=== PATIENT | female | born 1975 | race Caucasian/White ===

== ENCOUNTER 2016-09-05 21:58 | Emergency (ER) | payer OTHER ==
[~2016-09-05] VITALS: Ht 157.5 cm; Wt 96.1 kg
[~2016-09-05 21:58] MED LIST: INSDGI SC; NVLGI/PEN SQ; ONDA4TAB10 SL; OXYC1TAB3 PO
[2016-09-05 22:03] VITALS: TEMP 37.1; Ht 157.5 cm; Wt 96.1 kg
[2016-09-05] MEDS ORDERED: SODIUM CHLORIDE 0.9% 1000ML 1,000 ML IV STA ×2 (23:41)
[2016-09-05] MEDS ORDERED: ONDANSETRON INJ 2 MG/ML 2 ML VIAL IV STA (23:41)
[2016-09-05] MEDS ORDERED: DICYCLOMINE HCL 10 MG/ML 2 ML AMP IM ONE (23:45)
[2016-09-06 00:06] LABS: BASO % 0.1 %; BASO ABS # 0.01 K/uL (0-0.2); COMPLETE YES; EOS % 2.7 %; HEMATOCRIT 40.7 % (37-47); IG% 0.5 %; LYMPH ABS # 2.83 K/uL (1.2-3.4); MEAN CELL VOLUME 77.8 fL (80-100); MEAN CORPUSCULAR HEMOGLOBIN 28.1 pg (25-34); MEAN CORPUSCULAR HGB CONC 36.1 g/dl (32-36); MEAN PLATELET VOLUME 8.1 fL (7.4-10.4); NEUT % 62.7 %; PLATELET COUNT 183 K/uL (130-400); RED BLOOD COUNT 5.23 M/uL (4.2-5.4); WHITE BLOOD COUNT 10.11 K/uL (4.8-10.8)
[2016-09-06] MEDS ORDERED: GABA-113 PO (00:18)
[2016-09-06] MEDS ORDERED: LISI-729 PO (00:18)
[2016-09-06 00:41] LABS: BUN/CREATININE RATIO 18.4 (10-20); C-REACTIVE PROTEIN 1.73 mg/dl (0-0.29); CALCIUM 8.9 mg/dl (8.5-10.1); CREATININE 0.74 mg/dl (0.60-1.20); MAGNESIUM 1.8 mg/dl (1.8-2.4)
[2016-09-06 00:49] LABS: URINE APPEARANCE CLEAR (CLEAR); URINE BILIRUBIN NEG (NEG); URINE COLOR YELLOW; URINE NITRITE NEG (NEG); URINE SPECIFIC GRAVITY 1.042 (1.000-1.030); UROBILINOGEN NEG (NEG); ZZUR CULT IF INDIC CLEAN CATCH NO
[2016-09-06 00:53] LABS: MANUAL MICROSCOPIC REQUIRED? NO; REVIEW REQ? NO
[2016-09-06] MEDS ORDERED: MoRPHine SULFATE 4 MG/ML 1 ML CARP\\VIAL IV STA (01:09)
[2016-09-06] MEDS ORDERED: OPTIRAY 320 IV PRN (02:00)
[2016-09-06 03:06] VITALS: BP 120/84; PULSE 90; O2SAT 97
[2016-09-06] MEDS ORDERED: ONDANSETRON HOME PACK 4MG OD TAB PO ONE (03:15)
[2016-09-06] MEDS ORDERED: OXYCODONE IR HOME PACK PO ONE (03:15)
--- NOTE | 2016-09-06 05:42 | EMERGENCY ROOM VISIT NOTE ---
History First contact with patient: 23:38 Chief Complaint: ABDOMINAL PAIN Stated Complaint: DIARRHEA,STOMACH PAIN,BAD HEADACHE,NAUSEA,FEELDEHY Nursing Triage Summary: pt c/o abd pain with n/d and her bsg won't come down, pmhx of diabetes type 1 and ulcerative colitis bsg at home 456 around 1830 History of Present Illness The patient is a 40 year old female who presents to the Emergency Room with complaints of nausea and diarrhea for the past day with left lower quadrant abdominal cramping, 7 out of 10. Nothing makes it better or worse. She follows with Dr. gonsalez. No recent colonoscopy. She has a known nodule in the duodenum. Patient denies chest pain, dyspnea, fever, chills, vomiting, urinary symptoms, recent antibiotics, back pain, well water. She states this does not feel like her C. difficile. Review of Systems See HPI for pertinent positives & negatives. A total of 10 systems reviewed and were otherwise negative. 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 (5) Ulcerative colitis Family History Cancer Diabetes mellitus Gallbladder disease Heart disease Hypertension Social History Smoking Status: Current Every Day Smoker Alcohol Use: occasionally Drug Use: none Marital Status: Housing Status: lives with family Occupation Status: other Current/Historical Medications Scheduled Dicyclomine Hcl (Bentyl), 10 MG PO QID Escitalopram Oxalate (Lexapro), 20 MG PO HS Gabapentin (Neurontin), 300 MG PO HS Insulin Aspart (Novolog Flexpen), SQ AC Insulin Glargine (Lantus), 50 UNITS SC BID Lamotrigine (Lamictal), 300 MG PO HS Lisinopril (Zestril), 5 MG PO DAILY Mesalamine (Asacol Hd), 2,400 MG PO TID Oxygen (Oxygen), 2 LITERS NA HS Scheduled PRN Lorazepam (Ativan), 1 MG PO BID PRN for Anxiety/Agitation Zolpidem Tartrate (Ambien), 10 MG PO HS PRN for Sleep Allergies Coded Allergies: No Known Allergies (Unverified , 06/13/16) Physical Exam Vital Signs Date Time Temp Pulse Resp B/P Pulse Ox O2 Delivery O2 Flow Rate FiO2 09/06/16 03:06 90 20 120/84 97 Room Air 09/06/16 01:17 96 18 116/83 96 Room Air 09/06/16 00:38 94 16 122/76 98 Room Air 09/05/16 22:03 37.1 114 18 135/86 96 Room Air Physical Exam VITALS: Vitals are noted on the nurse's note and reviewed by myself. Vital signs stable. GENERAL: Pleasant female, in no acute distress, nondiaphoretic, well-developed well-nourished. SKIN: The skin was without rashes, erythema, edema, or bruising. There is no tenting of the skin. Capillary reflex less than 2 seconds. HEAD: Normocephalic atraumatic. EARS: External auditory canals clear, tympanic membranes pearly zamarripa without erythema or effusion bilaterally. EYES: Pupils equal round and reactive to light and accommodation. Conjunctivae without injection, sclerae without icterus. Extraocular movements intact. NOSE: Patent, turbinates without inflammation or discharge. MOUTH: Mucous membranes moist. Pharynx without erythema or exudate. Uvula midline. Airway patent. Tongue does not deviate. NECK: Supple without nuchal rigidity. No lymphadenopathy. No thyromegaly. Cervical spine is nontender. No JVD. HEART: Regular rate and rhythm without murmurs gallops or rubs. LUNGS: Clear to auscultation bilaterally without wheezes, rales or rhonchi. No dullness to percussion. No retractions or accessory muscle use. ABDOMEN: Positive bowel sounds x 4. Normal tympanic percussion. Soft, tender to palpation left lower quadrant, no CVA tenderness, without masses or organomegaly. Villanueva sign negative. No guarding or rebound tenderness. MUSCULOSKELETAL: No muscle atrophy, erythema, or edema noted. NEURO: Patient was alert and oriented to person place and time. Normal sensation to light and sharp touch. No focal neurological deficits. Medical Decision & Procedures Laboratory Results 09/05/16 23:40 Red Blood Count 5.23, Mean Corpuscular Volume 77.8, Mean Corpuscular Hemoglobin 28.1, Mean Corpuscular Hemoglobin Concent 36.1, Mean Platelet Volume 8.1, Neutrophils (%) (Auto) 62.7, Lymphocytes (%) (Auto) 28.0, Monocytes (%) (Auto) 6.0, Eosinophils (%) (Auto) 2.7, Basophils (%) (Auto) 0.1, Neutrophils # (Auto) 6.34, Lymphocytes # (Auto) 2.83, Monocytes # (Auto) 0.61, Eosinophils # (Auto) 0.27, Basophils # (Auto) 0.01 09/05/16 23:40 Test 09/05/16 23:40 09/06/16 00:26 White Blood Count 10.11 K/uL (4.8-10.8) Red Blood Count 5.23 M/uL (4.2-5.4) Hemoglobin 14.7 g/dL (12.0-16.0) Hematocrit 40.7 % (37-47) Mean Corpuscular Volume 77.8 fL (80-100) Mean Corpuscular Hemoglobin 28.1 pg (25-34) Mean Corpuscular Hemoglobin Concent 36.1 g/dl (32-36) Platelet Count 183 K/uL (130-400) Mean Platelet Volume 8.1 fL (7.4-10.4) Neutrophils (%) (Auto) 62.7 % Lymphocytes (%) (Auto) 28.0 % Monocytes (%) (Auto) 6.0 % Eosinophils (%) (Auto) 2.7 % Basophils (%) (Auto) 0.1 % Neutrophils # (Auto) 6.34 K/uL (1.4-6.5) Lymphocytes # (Auto) 2.83 K/uL (1.2-3.4) Monocytes # (Auto) 0.61 K/uL (0.11-0.59) Eosinophils # (Auto) 0.27 K/uL (0-0.5) Basophils # (Auto) 0.01 K/uL (0-0.2) RDW Standard Deviation 38.4 fL (36.4-46.3) RDW Coefficient of Variation 13.6 % (11.5-14.5) Immature Granulocyte % (Auto) 0.5 % Immature Granulocyte # (Auto) 0.05 K/uL (0.00-0.02) Erythrocyte Sedimentation Rate 23 mm/hr (0-21) Urine Color YELLOW Urine Appearance CLEAR (CLEAR) Urine pH 5.0 (4.5-7.5) Urine Specific [place] 1.042 (1.000-1.030) Urine Protein NEG (NEG) Urine Glucose (UA) 3+ (NEG) Urine Ketones NEG (NEG) Urine Occult Blood NEG (NEG) Urine Nitrite NEG (NEG) Urine Bilirubin NEG (NEG) Urine Urobilinogen NEG (NEG) Urine Leukocyte Esterase NEG (NEG) Anion Gap 11.0 mmol/L (3-11) Est Creatinine Clear Calc Drug Dose 108.2 ml/min Estimated GFR () 116.6 Estimated GFR (Non- 100.6 BUN/Creatinine Ratio 18.4 (10-20) Calcium Level 8.9 mg/dl (8.5-10.1) Magnesium Level 1.8 mg/dl (1.8-2.4) Total Bilirubin 0.7 mg/dl (0.2-1) Direct Bilirubin 0.2 mg/dl (0-0.2) Aspartate Amino Transf (AST/SGOT) 27 U/L (15-37) Alanine Aminotransferase (ALT/SGPT) 71 U/L (12-78) Alkaline Phosphatase 171 U/L (45-117) C-Reactive Protein 1.73 mg/dl (0-0.29) Total Protein 8.1 gm/dl (6.4-8.2) Albumin 3.8 gm/dl (3.4-5.0) Lipase 167 U/L (73-393) Bedside Lactic Acid Venous 1.83 mmol/L (0.90-1.70) Medications Administered Medications (Trade) Dose Ordered Sig/Brenda Route Start Time Stop Time Status Last Admin Dose Admin Sodium Chloride 1,000 ml @ 999 mls/hr Q1H1M STAT IV 09/05/16 23:41 09/06/16 00:41 DC 09/06/16 00:11 999 MLS/HR Sodium Chloride (Nss 1000ml) 1,000 ml @ 125 mls/hr Q8H STAT IV 09/05/16 23:41 09/06/16 03:44 DC 09/06/16 01:01 125 MLS/HR Ondansetron HCl (Zofran Inj) 4 mg NOW STAT IV 09/05/16 23:41 09/05/16 23:43 DC 09/06/16 00:11 4 MG Dicyclomine HCl (Bentyl Inj) 20 mg NOW ONCE IM 09/05/16 23:45 09/05/16 23:46 DC 09/06/16 00:11 20 MG Morphine Sulfate (MoRPHine SULFATE INJ) 4 mg NOW STAT IV 09/06/16 01:09 09/06/16 01:10 DC 09/06/16 01:14 4 MG ED Course Prior records/ancillary studies reviewed. Triage Nursing notes reviewed. The patient's history was concerning for abdominal pain. Differential diagnosis: Etiologies such as ulcerative colitis exacerbation, appendicitis, diverticulitis , PUD, biliary pathology, UTI, pancreatitis, obstruction, mesenteric ischemia, aortic pathology, infections, inflammatory bowel disease, renal colic, as well as others were entertained. Physical examination findings: As above. ER treatment provided: IV fluids, Bentyl, morphine, Zofran On reassessment the patient felt better. Diagnostics interpreted by me: The labs revealed worrisome leukocytosis, elevated sed CRP, hyperglycemia without DKA negative urine Imaging studies: CT ABDOMEN & PELVIS: Compared to CT abdomen and pelvis 01/27/2016 1.1 centimeter nodule within the proximal duodenum, series 2 image 49. Followup to exclude malignancy would be useful. Postoperative changes of subtotal colectomy, overall similar to prior. No bowel obstruction. Regions of small bowel wall thickening may be due to incomplete distention or enteritis. Cholecystectomy. No CT evidence of acute pancreatitis. Hepatosplenomegaly. No urinary obstruction. No free fluid. No free air. Radiologist: Kimberley Gonzales M.D. Exam and history seem consistent with enteritis. Patient states she is a known nodule in her duodenum. She is advised follow-up Dr. Gonsalez for this. She denies rest, stay well-hydrated and to follow-up family care in a few days or here in the ER sooner for abdominal pain, fevers, vomiting, worsening signs or symptoms or as needed. Patient felt much better and requested to leave. She is well-appearing. She is advised to monitor her blood sugars better. By the evaluation outlined above emergent etiologies such as appendicitis, diverticulitis, PUD, biliary pathology, UTI, pancreatitis, obstruction, mesenteric ischemia, aortic pathology, renal colic, as well as others were deemed relatively unlikely. The pt informed about the findings as listed above. All questions were answered and pleased with the treatment. Return instructions were outlined and the patient was discharged in stable condition. Referral: The patient was referred back to their primary care physician and GI for follow- up in 2 to 3 days for a recheck of the current condition. Case reviewed with my attending Medical Decision As above Impression Primary Impression: Enteritis Departure Information Dispostion Home / Self-Care Condition GOOD Forms Call Back Authorization, HOME CARE DOCUMENTATION FORM, IMPORTANT VISIT INFORMATION Patient Instructions Abdominal Pain - [facility], My [facility] Additional Instructions DO NOT drive, drink alcohol, operate machinery, or perform dangerous activities today. You were given medications in the ER that can affect your ability to safely function or operate a vehicle. Ibuprofen(Motrin, Advil) may be used for fever or pain. Use 600mg every six hours as needed. Take with food. Avoid using more than 2400mg in a 24 hour period. Do not use 2400mg per day for more than three consecutive days without physician direction. Prolonged inappropriate use can lead to stomach upset or ulcers. (AND/OR) Acetaminophen(Tylenol) may be used for fever or pain. Use 1000mg every six hours as needed. Avoid using more than 4000mg in a 24 hour period. Zofran 4mg: Take one every six hours as needed for nausea. Avoid alcohol, operating machinery or dangerous equipment, working on ladders or roofs, DRIVING , or situations where being under the influence may be dangerous. Rest and drink plenty of fluids as tolerated. Slow sips of water or sports drinks are recommended instead of large amounts all at once. Continue current medications. Once your stomach is settled start with a clear liquid diet (jello, soup broth, etc.) and then advance as tolerated. You should avoid full, heavy meals for about 24 hrs from the time your symptoms resolved. Return to the ER immediately for worsening or persistent abdominal pain, vomiting, fevers, chest pains, difficulty breathing, black or bloody stools, worsening of your condition, or as needed. Follow up with your primary physician and crime scene analyst in 2-3 days for a recheck of your current condition.
--- NOTE | 2016-09-06 06:49 | DIAGNOSTIC IMAGING REPORT ---
ABDOMEN AND PELVIS CT WITH IV CONTRAST CT DOSE: 1083.53 mGy.cm HISTORY: Pain LLQ pain TECHNIQUE: Multiaxial CT images of the abdomen and pelvis were performed following the use of intravenous contrast. COMPARISON STUDY: 01/27/2016 FINDINGS: Prior cholecystectomy. Liver spleen and pancreas are unremarkable. Kidneys negative for hydronephrosis. Nonobstructive bowel pattern. Mild increase in fecal load of the sigmoid. Prior subtotal colectomy. Unchanged in the prior study. IMPRESSION: Chronic and postoperative change. No acute process. Electronically signed by: Matty Ribeiro M.D. 09/06/2016 6:48 AM Dictated Date/Time: 09/06/2016 6:47 AM
[2016-12-07] MEDS ORDERED: MESA800T6 PO (00:08)
== END 2016-09-06 03:11 | disposition home or self-care (01) ==
LOC: C.EDB 22:00
DX: K52.9 Noninfective gastroenteritis and colitis, unspecified (principal); F17.210 Nicotine dependence, cigarettes, uncomplicated; Z79.4 Long term (current) use of insulin; Z79.899 Other long term (current) drug therapy

== ENCOUNTER 2016-09-07 17:10 | Emergency (ER) | payer OTHER ==
[~2016-09-07] VITALS: Ht 157.5 cm; Wt 97.3 kg
[~2016-09-07 17:10] MED LIST changes: +GABA-113 PO; +LISI-729 PO; -ONDA4TAB10 SL; -OXYC1TAB3 PO
[2016-09-07 17:27] VITALS: TEMP 36.9; Ht 157.5 cm; Wt 97.3 kg
[2016-09-07] MEDS ORDERED: SODIUM CHLORIDE 0.9% 1000ML 1,000 ML IV STA (18:35)
[2016-09-07] MEDS ORDERED: ONDANSETRON 8 MG/54 ML D5W IV STA (18:41)
[2016-09-07 18:49] LABS: MANUAL MICROSCOPIC REQUIRED? NO; REVIEW REQ? NO; URINE APPEARANCE CLEAR (CLEAR); URINE BILIRUBIN NEG (NEG); URINE COLOR YELLOW; URINE NITRITE NEG (NEG); URINE PH 5.5 (4.5-7.5); UROBILINOGEN NEG (NEG)
[2016-09-07 18:51] LABS: BASO % 0.2 %; BASO ABS # 0.02 K/uL (0-0.2); COMPLETE YES; HEMATOCRIT 40.8 % (37-47); IG% 0.1 %; LYMPH % 27.7 %; LYMPH ABS # 2.85 K/uL (1.2-3.4); MEAN CELL VOLUME 78.6 fL (80-100); MEAN CORPUSCULAR HEMOGLOBIN 28.9 pg (25-34); MEAN CORPUSCULAR HGB CONC 36.8 g/dl (32-36); MEAN PLATELET VOLUME 8.3 fL (7.4-10.4); MONO % 4.9 %; NEUT % 65.1 %; PLATELET COUNT 178 K/uL (130-400); RED BLOOD COUNT 5.19 M/uL (4.2-5.4); WHITE BLOOD COUNT 10.28 K/uL (4.8-10.8)
[2016-09-07] MEDS: HYDROmorphone INJ 1 MG/ML SYR IV PRN ×2 (19:08→20:53)
[2016-09-07 19:17] LABS: ALKALINE PHOSPHATASE 183 U/L (45-117); ALT/SGPT 93 U/L (12-78); AST/SGOT 43 U/L (15-37); BLOOD UREA NITROGEN 10 mg/dl (7-18); BUN/CREATININE RATIO 13.9 (10-20); C-REACTIVE PROTEIN 2.23 mg/dl (0-0.29); CALCIUM 9.6 mg/dl (8.5-10.1); CARBON DIOXIDE 27 mmol/L (21-32); CHLORIDE 97 mmol/L (98-107); CREATININE 0.71 mg/dl (0.60-1.20); GLUCOSE 322 mg/dl (70-99); POTASSIUM 3.8 mmol/L (3.5-5.1); SODIUM 136 mmol/L (136-145)
[2016-09-07 19:29] LABS: BETA-HYDROXYBUTYRATE 1.13 mg/dL (0.2-2.81)
[2016-09-07 19:52] LABS: ZZUR CULT IF INDIC CLEAN CATCH NO
[2016-09-07] MEDS ORDERED: DiphenhydrAMINE HCL 50 MG/ML VIAL IV STA (20:45)
[2016-09-07] MEDS ORDERED: METOCLOPRAMIDE HCL INJ 5 MG/ML 2 ML VIAL IV STA (20:45)
[2016-09-07] MEDS ORDERED: EMPTY 8 DRAM VIAL ONE (23:39)
[2016-09-07] MEDS ORDERED: METOCLOPRAMIDE HCL 5 MG TAB PO ONE (23:45)
[2016-09-07] MEDS ORDERED: NORCO 5/325MG HOME PACK PO ONE (23:45)
[2016-09-07 23:54] VITALS: BP 115/84; PULSE 76; O2SAT 96
--- NOTE | 2016-09-08 02:56 | EMERGENCY ROOM VISIT NOTE ---
History Report prepared by Eileen: Jeff Albert Under the Supervision of: Dr. Luiz Novak M.D. First contact with patient: 18:35 Chief Complaint: DIARRHEA Stated Complaint: SX GETTING WORSE FROM FRI,DIARRHEA,NAUSEA,ABD PAIN Nursing Triage Summary: Patient reports abd pain diarrhea and elevated blood sugars x 4 days. Patient states she was seen here on Thursday for the same symptoms is not improving at all. History of Present Illness The patient is a 40 year old female who presents to the Emergency Room with complaints of worsening left sided abdominal pain and diarrhea. She rates her abdominal pain as a 9/10 in severity. The patient was in the emergency department on Thursday of last week, two days prior to this visit for similar symptoms. She has had eight episodes of diarrhea today. She is also complaining of persistent nausea, but she has not vomited. She denies any recent black or bloody stools. The patient has been struggling with high blood sugars and has measured her blood sugar in the 450's lately. She denies LOC, headache, fevers, chills, diaphoresis, visual changes, neck pain, chest pain, breathing difficulties, nausea, vomiting, back pain, melena, hematochezia, urinary symptoms, numbness, weakness, lymphadenopathy, rash, or other complaints. The patient was diagnosed with C-diff in February, and has not used any antibiotics since this diagnosis. She follows with Dr. Garcia in [place]. 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 A total of ten systems were reviewed and were otherwise negative. 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 (5) Ulcerative colitis Family History Cancer Diabetes mellitus Gallbladder disease Heart disease Hypertension Social History Smoking Status: Current Every Day Smoker Alcohol Use: occasionally Drug Use: none Marital Status: Housing Status: lives with family Occupation Status: other Current/Historical Medications Scheduled Dicyclomine Hcl (Bentyl), 10 MG PO QID Escitalopram Oxalate (Lexapro), 20 MG PO HS Gabapentin (Neurontin), 300 MG PO HS Insulin Aspart (Novolog Flexpen), SQ AC Insulin Glargine (Lantus), 50 UNITS SC BID Lamotrigine (Lamictal), 300 MG PO HS Lisinopril (Zestril), 5 MG PO DAILY Mesalamine (Asacol Hd), 2,400 MG PO TID Oxygen (Oxygen), 2 LITERS NA HS Scheduled PRN Lorazepam (Ativan), 1 MG PO BID PRN for Anxiety/Agitation Zolpidem Tartrate (Ambien), 10 MG PO HS PRN for Sleep Allergies Coded Allergies: No Known Allergies (Unverified , 06/13/16) Physical Exam Vital Signs Date Time Temp Pulse Resp B/P Pulse Ox O2 Delivery O2 Flow Rate FiO2 09/07/16 23:54 76 20 115/84 96 09/07/16 22:40 90 20 116/79 96 Room Air 09/07/16 20:55 92 18 114/90 96 Room Air 09/07/16 19:15 106 09/07/16 19:10 107 20 117/68 98 Room Air 09/07/16 17:27 36.9 110 20 148/96 99 Room Air Physical Exam GENERAL: Awake, alert, well-appearing, in no distress HENT: Normocephalic, atraumatic. Oropharynx unremarkable. EYES: Normal conjunctiva. Sclera non-icteric. NECK: Supple. No nuchal rigidity. FROM. No JVD. RESPIRATORY: Clear to auscultation. CARDIAC: Regular rate, normal rhythm. Extremities warm and well perfused. Pulses equal. ABDOMEN: Soft, non-distended. LLQ tenderness to palpation. No rebound or guarding. No masses. RECTAL: Deferred. MUSCULOSKELETAL: Chest examination reveals no tenderness. The back is symmetrical on inspection without obvious abnormality. There is no CVA tenderness to palpation. No joint edema. LOWER EXTREMITIES: Calves are equal size bilaterally and non-tender. No edema. No discoloration. NEURO: Normal sensorium. No sensory or motor deficits noted. SKIN: No rash or jaundice noted. Medical Decision & Procedures Laboratory Results 09/07/16 18:25 Red Blood Count 5.19, Mean Corpuscular Volume 78.6, Mean Corpuscular Hemoglobin 28.9, Mean Corpuscular Hemoglobin Concent 36.8, Mean Platelet Volume 8.3, Neutrophils (%) (Auto) 65.1, Lymphocytes (%) (Auto) 27.7, Monocytes (%) (Auto) 4.9, Eosinophils (%) (Auto) 2.0, Basophils (%) (Auto) 0.2, Neutrophils # (Auto) 6.69, Lymphocytes # (Auto) 2.85, Monocytes # (Auto) 0.50, Eosinophils # (Auto) 0.21, Basophils # (Auto) 0.02 09/07/16 18:25 Test 09/07/16 18:20 09/07/16 18:25 09/07/16 18:35 Urine Color YELLOW Urine Appearance CLEAR (CLEAR) Urine pH 5.5 (4.5-7.5) Urine Specific [place] 1.020 (1.000-1.030) Urine Protein NEG (NEG) Urine Glucose (UA) 3+ (NEG) Urine Ketones NEG (NEG) Urine Occult Blood NEG (NEG) Urine Nitrite NEG (NEG) Urine Bilirubin NEG (NEG) Urine Urobilinogen NEG (NEG) Urine Leukocyte Esterase NEG (NEG) White Blood Count 10.28 K/uL (4.8-10.8) Red Blood Count 5.19 M/uL (4.2-5.4) Hemoglobin 15.0 g/dL (12.0-16.0) Hematocrit 40.8 % (37-47) Mean Corpuscular Volume 78.6 fL (80-100) Mean Corpuscular Hemoglobin 28.9 pg (25-34) Mean Corpuscular Hemoglobin Concent 36.8 g/dl (32-36) Platelet Count 178 K/uL (130-400) Mean Platelet Volume 8.3 fL (7.4-10.4) Neutrophils (%) (Auto) 65.1 % Lymphocytes (%) (Auto) 27.7 % Monocytes (%) (Auto) 4.9 % Eosinophils (%) (Auto) 2.0 % Basophils (%) (Auto) 0.2 % Neutrophils # (Auto) 6.69 K/uL (1.4-6.5) Lymphocytes # (Auto) 2.85 K/uL (1.2-3.4) Monocytes # (Auto) 0.50 K/uL (0.11-0.59) Eosinophils # (Auto) 0.21 K/uL (0-0.5) Basophils # (Auto) 0.02 K/uL (0-0.2) RDW Standard Deviation 38.3 fL (36.4-46.3) RDW Coefficient of Variation 13.6 % (11.5-14.5) Immature Granulocyte % (Auto) 0.1 % Immature Granulocyte # (Auto) 0.01 K/uL (0.00-0.02) Erythrocyte Sedimentation Rate 26 mm/hr (0-21) Anion Gap 12.0 mmol/L (3-11) Est Creatinine Clear Calc Drug Dose 113.6 ml/min Estimated GFR () 122.6 Estimated GFR (Non- 105.8 BUN/Creatinine Ratio 13.9 (10-20) Calcium Level 9.6 mg/dl (8.5-10.1) Total Bilirubin 1.0 mg/dl (0.2-1) Direct Bilirubin mg/dl (0-0.2) Aspartate Amino Transf (AST/SGOT) 43 U/L (15-37) Alanine Aminotransferase (ALT/SGPT) 93 U/L (12-78) Alkaline Phosphatase 183 U/L (45-117) C-Reactive Protein 2.23 mg/dl (0-0.29) Total Protein 8.3 gm/dl (6.4-8.2) Albumin 4.0 gm/dl (3.4-5.0) Lipase 129 U/L (73-393) Beta-Hydroxybutyric Acid 1.13 mg/dL (0.2-2.81) Chemistry Specimen Hemolysis Bedside Glucose 299 mg/dl (70-90) Date/Time Source Procedure Growth Status 09/07/16 18:35 Stool C.difficile Toxin B Gene (PCR) - Final No C. difficile toxin B gene detected Complete Laboratory results reviewed by me Medications Administered Medications (Trade) Dose Ordered Sig/Brenda Route Start Time Stop Time Status Last Admin Dose Admin Sodium Chloride (Nss 1000ml) 1,000 ml @ 999 mls/hr Q1H1M STAT IV 09/07/16 18:35 09/07/16 19:35 DC 09/07/16 19:04 999 MLS/HR Ondansetron HCl (Zofran 8mg Iv) 8 mg NOW STAT IV 09/07/16 18:41 09/07/16 18:43 DC 09/07/16 19:06 8 MG Hydromorphone HCl (Dilaudid Inj) 1 mg Q15M PRN IV 09/07/16 18:45 09/08/16 00:48 DC 09/07/16 20:53 1 MG Metoclopramide HCl (Reglan Inj) 10 mg NOW STAT IV 09/07/16 20:45 09/07/16 20:46 DC 09/07/16 20:51 10 MG Diphenhydramine HCl (Benadryl Inj) 25 mg NOW STAT IV 09/07/16 20:45 09/07/16 20:46 DC 09/07/16 20:51 25 MG Metoclopramide HCl (Reglan Tab) 20 mg NOW ONCE PO 09/07/16 23:45 09/07/16 23:46 DC 09/07/16 23:53 20 MG Acetaminophen/ Hydrocodone Bitart ([place] 5/325mg Home Pack) 1 homepack UD ONCE PO 09/07/16 23:45 09/07/16 23:46 DC 09/07/16 23:52 1 HOMEPACK ED Course 1838: The patient was evaluated in room B5. A complete history and physical exam was performed. 1835: Ordered Sodium Chloride 1000 mL @ 999 mL/hr IV. 184: Ordered Zofran 8 mg IV. 184: Ordered Dilaudid 1 mg IV. 2041: I checked on the patient at this time. He is still complaining of nausea. 2044: Ordered Benadryl 25 mg IV, Reglan 10 mg IV. 5: Ordered Acetaminophen 1 homepack PO, Metoclopramide HCl 20 mg PO. 2351: I reevaluated the patient she is feeling much better. Discussed results and discharge instructions: home verbalized understanding and agreement. The patient is ready for discharge. Medical Decision Prior records/ancillary studies reviewed. Triage Nursing notes reviewed and agree them. The patient's history was concerning for nausea, diarrhea, and abdominal pain. Differential diagnosis: Etiologies such as C. difficile infection, enteritis, food borne illness, infections, appendicitis, diverticulitis, inflammatory bowel disease, GI bleed, biliary pathology, as well as others were entertained. Physical examination findings: As above. Mild left-sided tenderness. ER treatment provided: IV hydration 1 L NSS. IV Dilaudid IV Zofran The patient had some mild recurrent nausea. No vomiting. Reglan IV Benadryl On reassessment the patient felt better. Patient was tolerating p.o. intake. Diagnostics interpretation by me: The labs revealed an unremarkable CBC. Hyperglycemia noted on chemistry panel. No evidence of acidosis. Beta hydroxybutyrate negative. LFTs were mildly elevated but have been like that in the past. Urinalysis revealed glucose without sign of infection. The patient had a mild elevation of ESR and CRP. Stool culture pending. Imaging studies: Deferred. Patient had a CT scan 2 days ago. She had been diagnosed with an enteritis 2 days ago. She noted abdominal pain and diarrhea that continued. C. difficile testing was ordered and was negative. After the above treatment the patient felt much better. She desired discharge. As her symptoms are better and the only issue that is present is her hyperglycemia I felt that the patient could be safely discharged home to follow up with her primary physician as she wishes. The patient will resume her normal insulin dosing. By the evaluation outlined above emergent etiologies such as appendicitis, diverticulitis, mesenteric ischemia, aortic pathology, inflammatory bowel disease, renal colic, PUD, biliary pathology, UTI, as well as others were deemed relatively unlikely. The patient was informed about the findings as listed above. All questions were answered and she was pleased with the treatment. Return instructions were outlined and the patient was discharged in stable condition. Outpatient prescription management: Reglan given to [facility] home pack Referral: The patient was referred to her primary care physician for follow-up in 2 to 3 days for a recheck of the current condition. The chart was completed utilizing [employer] Speech voice recognition software. Grammatical errors, random word insertions, pronoun errors, and incomplete sentences are an occasional consequence of this system due to software limitations, ambient noise, and hardware issues. Any formal questions or concerns about the content, text, or information contained within the body of this dictation should be directly addressed to the physician for clarification. Impression Primary Impression: Nausea Additional Impressions: Diarrhea LLQ abdominal pain Scribe Attestation The scribe's documentation has been prepared under my direction and personally reviewed by me in its entirety. I confirm that the note above accurately reflects all work, treatment, procedures, and medical decision making performed by me. Departure Information Dispostion Home / Self-Care Referrals Yousuf Garcia M.D. (PCP) Forms HOME CARE DOCUMENTATION FORM, IMPORTANT VISIT INFORMATION, WORK / SCHOOL INSTRUCTIONS Patient Instructions My [facility] Additional Instructions DO NOT drive, drink alcohol, operate machinery, or perform dangerous activities today. You were given medications in the ER that can affect your ability to safely function or operate a vehicle. Reglan(metoclopramide) tablets 10mg: Take one every six hours as needed for nausea. Avoid alcohol, operating machinery or dangerous equipment, working on ladders or roofs, DRIVING, or situations where being under the influence may be dangerous. Hydrocodone/acetaminophen 5/325mg: Take 1-2 pills every 6 hours as needed for pain. Avoid additional Acetaminophen/Tylenol, alcohol, operating machinery or dangerous equipment, working on ladders or roofs, DRIVING, or situations where being under the influence may be dangerous. Rest and drink plenty of fluids as tolerated. Slow sips of water or sports drinks are recommended instead of large amounts all at once. Continue current medications. Once your stomach is settled start with a clear liquid diet (jello, soup broth, etc.) and then advance as tolerated. You should avoid full, heavy meals for about 24 hrs from the time your symptoms resolved. Return to the ER for persistent vomiting, fevers, abdominal pain, chest pains, difficulty breathing, black or bloody stools, worsening of your condition, or as needed. Follow up with your primary physician in 2-3 days for a recheck of your current condition Problem Qualifiers
[2016-12-07] MEDS ORDERED: MESA800T6 PO (00:08)
== END 2016-09-07 23:57 | disposition home or self-care (01) ==
LOC: C.EDB 17:21
DX: R11.0 Nausea (principal); R19.7 Diarrhea, unspecified; R10.32 Left lower quadrant pain; Z86.19 Personal history of other infectious and parasitic diseases; K51.90 Ulcerative colitis, unspecified, without complications; Z80.9 Family history of malignant neoplasm, unspecified; Z83.3 Family history of diabetes mellitus; Z83.79 Family history of other diseases of the digestive system; Z82.49 Family history of ischemic heart disease and other diseases of the circulatory system; F17.210 Nicotine dependence, cigarettes, uncomplicated; Z79.4 Long term (current) use of insulin; Z79.899 Other long term (current) drug therapy

== ENCOUNTER 2016-12-07 14:54 | Emergency (ER) | payer OTHER ==
[~2016-12-07] VITALS: Ht 157.5 cm; Wt 101.5 kg
[~2016-12-07 14:54] MED LIST changes: +MESA1TAB4 PO
[2016-12-07 14:58] VITALS: TEMP 36.9; Ht 157.5 cm; Wt 101.5 kg
[2016-12-07] MEDS ORDERED: ONDANSETRON INJ 2 MG/ML 2 ML VIAL IV STA ×2 (15:11→16:38)
[2016-12-07] MEDS ORDERED: SODIUM CHLORIDE 0.9% 1000ML 1,000 ML IV STA (15:11)
[2016-12-07] MEDS ORDERED: MoRPHine SULFATE 4 MG/ML 1 ML CARP\\VIAL IV STA (15:11)
[2016-12-07 15:33] LABS: BASO % 0.2 %; BASO ABS # 0.02 K/uL (0-0.2); COMPLETE YES; EOS % 1.6 %; HEMATOCRIT 37.9 % (37-47); IG% 0.4 %; LYMPH % 21.4 %; LYMPH ABS # 2.26 K/uL (1.2-3.4); MEAN CORPUSCULAR HEMOGLOBIN 29.3 pg (25-34); MEAN CORPUSCULAR HGB CONC 36.1 g/dl (32-36); MEAN PLATELET VOLUME 8.2 fL (7.4-10.4); NEUT % 71.4 %; PLATELET COUNT 197 K/uL (130-400); RED BLOOD COUNT 4.68 M/uL (4.2-5.4); WHITE BLOOD COUNT 10.56 K/uL (4.8-10.8)
[2016-12-07] MEDS ORDERED: INSDGIPEN SC (15:36)
[2016-12-07] MEDS ORDERED: LSN5 PO (15:36)
[2016-12-07] MEDS ORDERED: GABA1CAP4 PO (15:36)
[2016-12-07] MEDS ORDERED: OMEG10007 PO (15:37)
[2016-12-07 15:56] LABS: BUN/CREATININE RATIO 17.5 (10-20); CALCIUM 9.2 mg/dl (8.5-10.1)
[2016-12-07] MEDS ORDERED: NovoLIN-R INSULIN PER UNIT CHARGE IV STA (15:56)
[2016-12-07 16:07] LABS: URINE APPEARANCE CLEAR (CLEAR); URINE BILIRUBIN NEG (NEG); URINE COLOR YELLOW; URINE NITRITE NEG (NEG); URINE SPECIFIC GRAVITY 1.039 (1.000-1.030); UROBILINOGEN NEG (NEG)
[2016-12-07 16:07] LABS: BETA-HYDROXYBUTYRATE 0.67 mg/dL (0.2-2.81)
[2016-12-07 16:08] LABS: MANUAL MICROSCOPIC REQUIRED? NO; REVIEW REQ? NO
[2016-12-07] MEDS ORDERED: MoRPHine SULFATE 2 MG/ML CARP IV STA (17:38)
[2016-12-07] MEDS ORDERED: OPTIRAY 320 IV PRN (18:15)
--- NOTE | 2016-12-07 18:28 | DIAGNOSTIC IMAGING REPORT ---
ABDOMEN AND PELVIS CT WITH IV AND ORAL CONTRAST CT DOSE: 1102.20 mGy.cm HISTORY: left flank pain eval for colitis TECHNIQUE: Multiaxial CT images of the abdomen and pelvis were performed following the use of intravenous and oral contrast. COMPARISON STUDY: Abdomen and pelvis CT 09/06/2016. FINDINGS: The lung bases are clear. The patient is status post proctocolectomy. No bowel wall thickening. No dilated loops of bowel to suggest an obstruction. Anterior abdominal wall mesh is again noted. The bladder is not well-distended but appears unremarkable. The uterus is surgically absent. Subcentimeter gastrohepatic lymph nodes remain stable. Hepatic steatosis. Cholecystectomy. The spleen, adrenal glands, pancreas, and left kidney are unremarkable. Stable 7 mm hypodense lesion within the right kidney. This is too small to characterize. No hydronephrosis. Stable small fat-containing midline lower anterior pelvic hernia. IMPRESSION: 1. Postoperative changes consistent with prior proctocolectomy. 2. No bowel wall thickening or obstruction. 3. Hepatic steatosis. Electronically signed by: Patricio Mcintosh M.D. 12/07/2016 6:27 PM Dictated Date/Time: 12/07/2016 6:20 PM
[2016-12-07 18:43] VITALS: BP 126/89; PULSE 93; O2SAT 96
[2016-12-07] MEDS ORDERED: PHENERGAN 25MG HOMEPACK PO ONE (18:45)
--- NOTE | 2016-12-07 19:28 | EMERGENCY ROOM VISIT NOTE ---
History Report prepared by Eileen: Arlin Bowie Under the Supervision of: Dr. Travon Atkins M.D. First contact with patient: 15:00 Chief Complaint: GI ASSESSMENT Stated Complaint: DIARRHEA,L SIDE/BACK PAIN,NAUSEA,FEEL DEHYDRATED Nursing Triage Summary: triage note: pt reports since yesterday diarrhea, nausea, left flank pain. History of Present Illness The patient is a 40 year old female who presents to the Emergency Room for a GI assessment. Yesterday the patient developed sharp left-sided flank pain that she states has been constant since it began and is worse today. She rates her current pain as an 8/10 in severity. The patient has also been having nausea and diarrhea since yesterday. She states that her abdominal pain is worse right before she has to have a bowel movement. She notes that there is some bright red blood on the toilet paper when she wipes after having a bowel movement. The patient denies fevers, chest pain, shortness of breathing, vomiting, melena, urinary symptoms, and chance of . She has had a total hysterectomy. She denies any injury or trauma to her left side. She has a history of ulcerative colitis and currently takes Asacol for that. She also has a history of C-diff, but states that her current symptoms do not feel like when she had C- diff. She denies any recent antibiotic usage. Source of History: patient Onset: yesterday Position: abdomen Symptom Intensity: 8/10 Quality: sharp Timing: constant, worsening Modifying Factors (Worsening): other (right before she has a bowel movement) Associated Symptoms: + nausea, + diarrhea, No fevers, No chest pain, No SOB , No vomiting, No melena, No urinary symptoms Note: Pt notes left-sided flank pain. Review of Systems See HPI for pertinent positives & negatives. A total of 10 systems reviewed and were otherwise negative. 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 (5) Ulcerative colitis Family History Cancer Diabetes mellitus Gallbladder disease Heart disease Hypertension Social History Smoking Status: Current Every Day Smoker Alcohol Use: occasionally Drug Use: none Marital Status: Housing Status: lives with family Occupation Status: other Current/Historical Medications Scheduled Dicyclomine Hcl (Bentyl), 10 MG PO QID Escitalopram Oxalate (Lexapro), 20 MG PO HS Fish Oil ([place]cker[place]-3), 1 CAP PO DAILY Gabapentin (Gabapentin), 300 MG PO BID Home O2 Therapy (Oxygen), 2 LITERS NA HS Insulin Glargine (Lantus Solostar), 50 UNITS SC BID Lamotrigine (Lamictal), 300 MG PO HS Lisinopril (Lisinopril), 5 MG PO DAILY Mesalamine (Asacol Hd), 2,400 MG PO TID Scheduled PRN Lorazepam (Ativan), 1 MG PO BID PRN for Anxiety/Agitation Zolpidem Tartrate (Ambien), 10 MG PO HS PRN for Sleep Allergies Coded Allergies: No Known Allergies (Unverified , 06/13/16) Physical Exam Vital Signs Date Time Temp Pulse Resp B/P (MAP) Pulse Ox O2 Delivery O2 Flow Rate FiO2 12/07/16 18:43 93 16 126/89 96 12/07/16 16:43 102 18 128/79 96 12/07/16 14:58 36.9 111 18 142/87 97 Room Air Physical Exam Constitutional: Vital signs reviewed. Eyes: Pupils are equal round reactive to light. Conjunctiva are noninjected. ENT: Pharynx is clear without erythema or exudate. Mucous membranes are moist. Neck supple without meningeal signs. Respiratory: Clear to auscultation bilaterally. Breath sounds are equal bilaterally. Cardiovascular: Regular rate and rhythm. No rubs or gallops. GI: Soft, nondistended. She has tenderness to the left flank, no CVA tenderness. Bowel sounds are present. Musculoskeletal: No peripheral edema. No lower extremity tenderness. Integumentary: No cyanosis. Neurological: The patient is awake and alert. No focal deficits. Psychiatric: Normal affect. Medical Decision & Procedures ER Provider Diagnostic Interpretation: Radiology results as stated below per my review and the radiologist's interpretation: ABDOMEN AND PELVIS CT WITH IV AND ORAL CONTRAST CT DOSE: 1102.20 mGy.cm HISTORY: left flank pain eval for colitis TECHNIQUE: Multiaxial CT images of the abdomen and pelvis were performed following the use of intravenous and oral contrast. COMPARISON STUDY: Abdomen and pelvis CT 09/06/2016. FINDINGS: The lung bases are clear. The patient is status post proctocolectomy. No bowel wall thickening. No dilated loops of bowel to suggest an obstruction. Anterior abdominal wall mesh is again noted. The bladder is not well-distended but appears unremarkable. The uterus is surgically absent. Subcentimeter gastrohepatic lymph nodes remain stable. Hepatic steatosis. Cholecystectomy. The spleen, adrenal glands, pancreas, and left kidney are unremarkable. Stable 7 mm hypodense lesion within the right kidney. This is too small to characterize. No hydronephrosis. Stable small fat-containing midline lower anterior pelvic hernia. IMPRESSION: 1. Postoperative changes consistent with prior proctocolectomy. 2. No bowel wall thickening or obstruction. 3. Hepatic steatosis. Electronically signed by: Patricio Mcintosh M.D. 12/07/2016 6:27 PM Dictated Date/Time: 12/07/2016 6:20 PM Laboratory Results 12/07/16 15:22 Red Blood Count 4.68, Mean Corpuscular Volume 81.0, Mean Corpuscular Hemoglobin 29.3, Mean Corpuscular Hemoglobin Concent 36.1, Mean Platelet Volume 8.2, Neutrophils (%) (Auto) 71.4, Lymphocytes (%) (Auto) 21.4, Monocytes (%) (Auto) 5.0, Eosinophils (%) (Auto) 1.6, Basophils (%) (Auto) 0.2, Neutrophils # (Auto) 7.54, Lymphocytes # (Auto) 2.26, Monocytes # (Auto) 0.53, Eosinophils # (Auto) 0.17, Basophils # (Auto) 0.02 12/07/16 15:22 Test 12/07/16 15:19 12/07/16 15:22 12/07/16 16:47 Urine Color YELLOW Urine Appearance CLEAR (CLEAR) Urine pH 5.0 (4.5-7.5) Urine Specific [place] 1.039 (1.000-1.030) Urine Protein NEG (NEG) Urine Glucose (UA) 3+ (NEG) Urine Ketones NEG (NEG) Urine Occult Blood NEG (NEG) Urine Nitrite NEG (NEG) Urine Bilirubin NEG (NEG) Urine Urobilinogen NEG (NEG) Urine Leukocyte Esterase NEG (NEG) White Blood Count 10.56 K/uL (4.8-10.8) Red Blood Count 4.68 M/uL (4.2-5.4) Hemoglobin 13.7 g/dL (12.0-16.0) Hematocrit 37.9 % (37-47) Mean Corpuscular Volume 81.0 fL (80-100) Mean Corpuscular Hemoglobin 29.3 pg (25-34) Mean Corpuscular Hemoglobin Concent 36.1 g/dl (32-36) Platelet Count 197 K/uL (130-400) Mean Platelet Volume 8.2 fL (7.4-10.4) Neutrophils (%) (Auto) 71.4 % Lymphocytes (%) (Auto) 21.4 % Monocytes (%) (Auto) 5.0 % Eosinophils (%) (Auto) 1.6 % Basophils (%) (Auto) 0.2 % Neutrophils # (Auto) 7.54 K/uL (1.4-6.5) Lymphocytes # (Auto) 2.26 K/uL (1.2-3.4) Monocytes # (Auto) 0.53 K/uL (0.11-0.59) Eosinophils # (Auto) 0.17 K/uL (0-0.5) Basophils # (Auto) 0.02 K/uL (0-0.2) RDW Standard Deviation 41.9 fL (36.4-46.3) RDW Coefficient of Variation 14.4 % (11.5-14.5) Immature Granulocyte % (Auto) 0.4 % Immature Granulocyte # (Auto) 0.04 K/uL (0.00-0.02) Anion Gap 12.0 mmol/L (3-11) Est Creatinine Clear Calc Drug Dose 82.6 ml/min Estimated GFR () 81.0 Estimated GFR (Non- 69.9 BUN/Creatinine Ratio 17.5 (10-20) Calcium Level 9.2 mg/dl (8.5-10.1) Total Bilirubin 1.1 mg/dl (0.2-1) Direct Bilirubin 0.2 mg/dl (0-0.2) Aspartate Amino Transf (AST/SGOT) 58 U/L (15-37) Alanine Aminotransferase (ALT/SGPT) 90 U/L (12-78) Alkaline Phosphatase 153 U/L (45-117) Total Protein 8.0 gm/dl (6.4-8.2) Albumin 3.9 gm/dl (3.4-5.0) Lipase 73 U/L (73-393) Beta-Hydroxybutyric Acid 0.67 mg/dL (0.2-2.81) Bedside Glucose 249 mg/dl (70-90) Laboratory results as reviewed by me. Medications Administered Medications (Trade) Dose Ordered Sig/Brenda Route Start Time Stop Time Status Last Admin Dose Admin Morphine Sulfate (MoRPHine SULFATE INJ) 4 mg ONE STAT IV 12/07/16 15:11 12/07/16 15:13 DC 12/07/16 15:25 4 MG Ondansetron HCl (Zofran Inj) 4 mg NOW STAT IV 12/07/16 15:11 12/07/16 15:13 DC 12/07/16 15:24 4 MG Sodium Chloride 1,000 ml @ 999 mls/hr Q1H1M STAT IV 12/07/16 15:11 12/07/16 16:11 DC 12/07/16 15:24 999 MLS/HR Insulin Human Regular (novoLIN-R U-100 PER UNIT) 5 units NOW STAT IV 12/07/16 15:56 12/07/16 15:57 DC 12/07/16 16:06 5 UNITS Ondansetron HCl (Zofran Inj) 4 mg NOW STAT IV 12/07/16 16:38 12/07/16 16:39 DC 12/07/16 16:45 4 MG Morphine Sulfate (MoRPHine SULFATE INJ) 2 mg NOW STAT IV 12/07/16 17:38 12/07/16 17:39 DC 12/07/16 17:42 2 MG Promethazine HCl (Phenergan 25MG Home Pack) 1 homepack UD ONCE PO 12/07/16 18:45 12/07/16 18:46 DC 12/07/16 18:40 1 HOMEPACK ED Course 1500: The patient was evaluated in room C6. A complete history and physical exam was performed. 1511: NSS 1000 ml @ 999 mls/hr IV, Zofran 4 mg IV, Morphine sulfate 4 mg IV 1556: Insulin Human Regular 5 units IV 1624: I updated the patient on her results. 1638: Zofran 4 mg IV 1738: Morphine sulfate 2 mg IV 1832: I reassessed the patient at this time. She is feeling better and resting comfortably. I discussed the results and treatment plan with the patient. I answered all pertaining questions that she had. She expressed understanding and verbalized agreement. The patient will be discharged home. 1845: Promethazine HCl 1 homepack PO Medical Decision This is a 40-year-old female who presents with abdominal pain and diarrhea. Differential diagnosis includes ulcerative colitis exacerbation, C. difficile infection, UTI, pyelonephritis, colitis. I did perform a limited focused review of portions of the patient's old chart on the electronic medical record. The patient was here in August for abdominal pain and diarrhea. She had a negative c-diff test and an unremarkable CT of the abdomen/pelvis. Medication Reconciliation: I attest that I have personally reviewed the patient' s current medication list. Blood Pressure Screening: Patient was found to have an elevated blood pressure and was referred to their primary doctor for recheck and further treatment. I did evaluate the patient as noted above. She is presenting with left-sided abdominal pain with diarrhea. She does have a history of ulcerative colitis. She is tender to palpation. IV access was established. I did treat her with IV morphine and Zofran. She was also given normal saline IV. I did order and review the patient's urinalysis as described above. I did order and review the patient's blood work as noted in the electronic medical record. Her LFTs are elevated but not above her baseline. I did order a CT of the abdomen and pelvis. I did review the images myself as well as the radiology report as described above. There is no evidence of acute process in the abdomen or pelvis. Her stool test for C. difficile was negative. I did discuss the test results with the patient. She is feeling better. She was advised follow closely with her doctor for further evaluation. She was discharged in good condition. She was given a Phenergan home pack for nausea. Impression Primary Impression: Left flank pain Additional Impressions: Vomiting and diarrhea Abnormal LFTs Scribe Attestation The scribe's documentation has been prepared under my direct and personally reviewed by me in its entirety. I confirm that the note above accurately reflects all work, treatment, procedures, and medical decision making performed by me. Departure Information Dispostion Home / Self-Care Referrals Yousuf Garcia M.D. (PCP) Forms HOME CARE DOCUMENTATION FORM, IMPORTANT VISIT INFORMATION Patient Instructions ED Flank Pain Uncertain Cause, My [facility] Additional Instructions You have been examined and treated today on an emergency basis only. This is not a substitute for, or an effort to provide, complete comprehensive medical care. It is impossible to recognize and treat all injuries or illnesses in a single emergency department visit. It is therefore important that you follow up closely with your physician. Call as soon as possible for an appointment. Return for worsening symptoms or if you develop fever or any other concerning symptoms. Problem Qualifiers
[2016-12-07] MEDS ORDERED: ESCI1TAB10 PO (20:36)
[2016-12-07] MEDS ORDERED: OXGN (21:37)
[2016-12-07] MEDS ORDERED: DICY10CA55 PO (22:20)
[2016-12-07] MEDS ORDERED: LAMO150T32 PO (22:22)
[2016-12-07] MEDS ORDERED: ATV/1 PO (22:23)
[2016-12-07] MEDS ORDERED: ZOLP10TA PO (22:24)
== END 2016-12-07 18:44 | disposition home or self-care (01) ==
LOC: C.EDB 14:55 → C.EDC 18:44
DX: R10.30 Lower abdominal pain, unspecified (principal); R11.10 Vomiting, unspecified; R19.7 Diarrhea, unspecified; R79.89 Other specified abnormal findings of blood chemistry; F17.200 Nicotine dependence, unspecified, uncomplicated; Z87.19 Personal history of other diseases of the digestive system; Z79.4 Long term (current) use of insulin; Z79.899 Other long term (current) drug therapy; Z80.9 Family history of malignant neoplasm, unspecified; Z83.3 Family history of diabetes mellitus; Z83.79 Family history of other diseases of the digestive system; Z82.49 Family history of ischemic heart disease and other diseases of the circulatory system

== ENCOUNTER 2017-04-04 23:04 | Emergency (ER) | payer OTHER ==
[~2017-04-04] VITALS: Ht 157.5 cm; Wt 104.8 kg
[~2017-04-04 23:04] MED LIST changes: +ATV/1 PO; +DICY10CA55 PO; +ESCI1TAB10 PO; -GABA-113 PO; +GABA1CAP4 PO; -INSDGI SC; +INSDGIPEN SC; +LAMO150T32 PO; -LISI-729 PO; +LSN5 PO; -MESA1TAB4 PO; +MESA800T6 PO; -NVLGI/PEN SQ; +OMEG10007 PO; +OXGN; +ZOLP10TA PO
[2017-04-04 23:15] VITALS: TEMP 36.9; Ht 157.5 cm; Wt 104.8 kg
[2017-04-04] MEDS ORDERED: RANITIDINE HCL 50 MG/100 ML D5W IV STA (23:32)
[2017-04-04] MEDS ORDERED: SODIUM CHLORIDE 0.9% 1000ML 1,000 ML IV STA (23:32)
[2017-04-04] MEDS ORDERED: DICYCLOMINE HCL 10 MG/ML 2 ML AMP IM ONE (23:45)
[2017-04-04 23:54] LABS: URINE APPEARANCE CLEAR (CLEAR); URINE BILIRUBIN NEG (NEG); URINE COLOR YELLOW; URINE NITRITE NEG (NEG); URINE SPECIFIC GRAVITY 1.037 (1.000-1.030); UROBILINOGEN NEG (NEG); ZZUR CULT IF INDIC CLEAN CATCH NO
[2017-04-05] VITALS: O2SAT 97
[2017-04-05] LABS: MANUAL MICROSCOPIC REQUIRED? NO; REVIEW REQ? NO
[2017-04-05 00:02] LABS: BASO % 0.3 %; BASO ABS # 0.03 K/uL (0-0.2); COMPLETE YES; EOS % 2.4 %; HEMATOCRIT 39.4 % (37-47); IG% 0.4 %; LYMPH ABS # 2.72 K/uL (1.2-3.4); MEAN CELL VOLUME 79.1 fL (80-100); MEAN CORPUSCULAR HEMOGLOBIN 27.7 pg (25-34); MONO % 7.1 %; NEUT % 61.8 %; PLATELET COUNT 158 K/uL (130-400); RED BLOOD COUNT 4.98 M/uL (4.2-5.4); WHITE BLOOD COUNT 9.71 K/uL (4.8-10.8)
[2017-04-05 00:23] LABS: BUN/CREATININE RATIO 20.7 (10-20); CALCIUM 9.3 mg/dl (8.5-10.1); CREATININE 0.76 mg/dl (0.60-1.20); POTASSIUM 3.9 mmol/L (3.5-5.1)
[2017-04-05 00:32] LABS: BETA-HYDROXYBUTYRATE 1.3 mg/dL (0.2-2.81)
[2017-04-05] MEDS ORDERED: NovoLIN-R INSULIN PER UNIT CHARGE IV STA (00:41)
[2017-04-05] MEDS ORDERED: METOCLOPRAMIDE HCL INJ 5 MG/ML 2 ML VIAL IV STA (01:08)
[2017-04-05] MEDS ORDERED: KETOROLAC TROMETHAMINE 30 MG/ML VIAL IV STA (01:08)
[2017-04-05] MEDS ORDERED: DiphenhydrAMINE HCL 50 MG/ML VIAL IV STA (01:08)
[2017-04-05] MEDS ORDERED: ONDANSETRON HOME PACK 4MG OD TAB PO ONE (02:45)
[2017-04-05 02:55] VITALS: BP 126/89; PULSE 88; O2SAT 95
[2017-04-05] MEDS ORDERED: INSPMPNVLG SQ (02:58)
--- NOTE | 2017-04-05 03:14 | EMERGENCY ROOM VISIT NOTE ---
History First contact with patient: 23:19 Chief Complaint: NAUSEA Stated Complaint: DIAHREA,LEFT SIDE PAIN,NAUSEA,FEEL DEHYDRATED Nursing Triage Summary: Pt presents with c/o diarrhea x 2 days, nausea x 1 day intermittent. Pt reports hx of UC and c.diff 8 mos ago. History of Present Illness The patient is a 41 year old female who presents to the Emergency Room with complaints of nausea and diarrhea for the past 2 days. Patient has UC. She follows with Dr. gonsalez. Unchanged colonoscopy 7 months ago. Patient had C. difficile before but this feels different. Patient complains of greater than 12 episodes of diarrhea today. No recent antibiotics or well water. No sick contacts. Patient describes pain as cramping, ranging in severity 6 out of 10 to the left lower quadrant. Patient had multiple CT scans in the past. Patient denies chest pain, dyspnea, fever, chills, vomiting, back pain, urinary symptoms. She is tolerate by mouth fluids and food. Review of Systems See HPI for pertinent positives & negatives. A total of 10 systems reviewed and were otherwise negative. 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 (5) Ulcerative colitis Family History Cancer Diabetes mellitus Gallbladder disease Heart disease Hypertension Social History Smoking Status: Current Every Day Smoker Alcohol Use: occasionally Drug Use: none Marital Status: Housing Status: lives with family Occupation Status: other Current/Historical Medications Scheduled Dicyclomine Hcl (Bentyl), 10 MG PO QID Escitalopram Oxalate (Lexapro), 20 MG PO HS Fish Oil (Tarrs-3), 1 CAP PO DAILY Gabapentin (Gabapentin), 300 MG PO BID Home O2 Therapy (Oxygen), 2 LITERS NA HS Insulin Aspart (novoLOG INSULIN PUMP ), 1.6 UNITS SQ PER HOUR Lamotrigine (Lamictal), 300 MG PO HS Lisinopril (Lisinopril), 5 MG PO DAILY Mesalamine (Asacol Hd), 2,400 MG PO TID Scheduled PRN Lorazepam (Ativan), 1 MG PO BID PRN for Anxiety/Agitation Zolpidem Tartrate (Ambien), 10 MG PO HS PRN for Sleep Physical Exam Vital Signs Date Time Temp Pulse Resp B/P (MAP) Pulse Ox O2 Delivery O2 Flow Rate FiO2 04/05/17 01:17 81 18 163/107 98 Room Air 04/05/17 00:00 97 Room Air 04/05/17 00:00 97 04/04/17 23:15 36.9 105 18 157/98 98 Room Air Physical Exam VITALS: Vitals are noted on the nurse's note and reviewed by myself. Vital signs stable. GENERAL: Pleasant female, in no acute distress, nondiaphoretic, well-developed well-nourished. SKIN: The skin was without rashes, erythema, edema, or bruising. There is no tenting of the skin. Capillary reflex less than 2 seconds. HEAD: Normocephalic atraumatic. EARS: External auditory canals clear, tympanic membranes pearly zamarripa without erythema or effusion bilaterally. EYES: Pupils equal round and reactive to light and accommodation. Conjunctivae without injection, sclerae without icterus. Extraocular movements intact. NOSE: Patent, turbinates without inflammation or discharge. MOUTH: Mucous membranes moist. Pharynx without erythema or exudate. Uvula midline. Airway patent. Tongue does not deviate. NECK: Supple without nuchal rigidity. No lymphadenopathy. No thyromegaly. Cervical spine is nontender. No JVD. HEART: Regular rate and rhythm without murmurs gallops or rubs. LUNGS: Clear to auscultation bilaterally without wheezes, rales or rhonchi. No dullness to percussion. No retractions or accessory muscle use. ABDOMEN: Positive bowel sounds x 4. Normal tympanic percussion. Soft, protuberant, obese, minimally tender to palpation left lower quadrant, without masses or organomegaly. Villanueva sign negative. No guarding or rebound tenderness. No CVA tenderness MUSCULOSKELETAL: No muscle atrophy, erythema, or edema noted. NEURO: Patient was alert and oriented to person place and time. Normal sensation to light and sharp touch. No focal neurological deficits. Medical Decision & Procedures Laboratory Results 04/04/17 23:40 Red Blood Count 4.98, Mean Corpuscular Volume 79.1, Mean Corpuscular Hemoglobin 27.7, Mean Corpuscular Hemoglobin Concent 35.0, Neutrophils (%) (Auto) 61.8, Lymphocytes (%) (Auto) 28.0, Monocytes (%) (Auto) 7.1, Eosinophils (%) (Auto) 2.4, Basophils (%) (Auto) 0.3, Neutrophils # (Auto) 6.00, Lymphocytes # (Auto) 2.72, Monocytes # (Auto) 0.69, Eosinophils # (Auto) 0.23, Basophils # (Auto) 0.03 04/04/17 23:40 Test 04/04/17 23:35 04/04/17 23:40 04/04/17 23:45 04/05/17 01:55 Urine Color YELLOW Urine Appearance CLEAR (CLEAR) Urine pH 5.0 (4.5-7.5) Urine Specific [place] 1.037 (1.000-1.030) Urine Protein NEG (NEG) Urine Glucose (UA) 3+ (NEG) Urine Ketones NEG (NEG) Urine Occult Blood NEG (NEG) Urine Nitrite NEG (NEG) Urine Bilirubin NEG (NEG) Urine Urobilinogen NEG (NEG) Urine Leukocyte Esterase NEG (NEG) White Blood Count 9.71 K/uL (4.8-10.8) Red Blood Count 4.98 M/uL (4.2-5.4) Hemoglobin 13.8 g/dL (12.0-16.0) Hematocrit 39.4 % (37-47) Mean Corpuscular Volume 79.1 fL (80-100) Mean Corpuscular Hemoglobin 27.7 pg (25-34) Mean Corpuscular Hemoglobin Concent 35.0 g/dl (32-36) Platelet Count 158 K/uL (130-400) Neutrophils (%) (Auto) 61.8 % Lymphocytes (%) (Auto) 28.0 % Monocytes (%) (Auto) 7.1 % Eosinophils (%) (Auto) 2.4 % Basophils (%) (Auto) 0.3 % Neutrophils # (Auto) 6.00 K/uL (1.4-6.5) Lymphocytes # (Auto) 2.72 K/uL (1.2-3.4) Monocytes # (Auto) 0.69 K/uL (0.11-0.59) Eosinophils # (Auto) 0.23 K/uL (0-0.5) Basophils # (Auto) 0.03 K/uL (0-0.2) Immature Granulocyte % (Auto) 0.4 % Immature Granulocyte # (Auto) 0.04 K/uL (0.00-0.02) Anion Gap 10.0 mmol/L (3-11) Est Creatinine Clear Calc Drug Dose 109.6 ml/min Estimated GFR () 112.1 Estimated GFR (Non- 96.8 BUN/Creatinine Ratio 20.7 (10-20) Calcium Level 9.3 mg/dl (8.5-10.1) Total Bilirubin 0.8 mg/dl (0.2-1) Direct Bilirubin 0.1 mg/dl (0-0.2) Aspartate Amino Transf (AST/SGOT) 41 U/L (15-37) Alanine Aminotransferase (ALT/SGPT) 97 U/L (12-78) Alkaline Phosphatase 157 U/L (45-117) Total Protein 7.6 gm/dl (6.4-8.2) Albumin 3.6 gm/dl (3.4-5.0) Lipase 62 U/L (73-393) Beta-Hydroxybutyric Acid 1.30 mg/dL (0.2-2.81) Bedside Lactic Acid Venous 1.55 mmol/L (0.90-1.70) Bedside Glucose 250 mg/dl (70-90) Medications Administered Medications (Trade) Dose Ordered Sig/Brenda Route Start Time Stop Time Status Last Admin Dose Admin Sodium Chloride 1,000 ml @ 999 mls/hr Q1H1M STAT IV 04/04/17 23:32 04/05/17 00:32 DC 04/04/17 23:46 999 MLS/HR Dicyclomine HCl (Bentyl Inj) 20 mg NOW ONCE IM 04/04/17 23:45 04/04/17 23:46 DC 04/04/17 23:57 20 MG Ranitidine HCl (zANTac IV) 50 mg NOW STAT IV 04/04/17 23:32 04/04/17 23:34 DC 04/04/17 23:56 50 MG Insulin Human Regular (novoLIN-R U-100 PER UNIT) 10 units NOW STAT IV 04/05/17 00:41 04/05/17 00:42 DC 04/05/17 01:10 10 UNITS Metoclopramide HCl (Reglan Inj) 10 mg NOW STAT IV 04/05/17 01:08 04/05/17 01:09 DC 04/05/17 01:13 10 MG Ketorolac Tromethamine (Toradol Inj) 30 mg NOW STAT IV 04/05/17 01:08 04/05/17 01:09 DC 04/05/17 01:14 30 MG Diphenhydramine HCl (Benadryl Inj) 12.5 mg NOW STAT IV 04/05/17 01:08 04/05/17 01:09 DC 04/05/17 01:13 12.5 MG Ondansetron HCl (ZOFRAN ODT 4MG Home Pack) 1 homepack UD ONCE PO 04/05/17 02:45 04/05/17 02:46 DC 04/05/17 02:52 1 HOMEPACK ED Course Prior records/ancillary studies reviewed. Triage Nursing notes reviewed. The patient's history was concerning for abdominal abdominal cramping with diarrhea Differential diagnosis: Etiologies such as UC flare, diarrheal illness, C. difficile, appendicitis, diverticulitis, PUD, biliary pathology, UTI, pancreatitis, obstruction, mesenteric ischemia, aortic pathology, infections, inflammatory bowel disease, renal colic, as well as others were entertained. Physical examination findings: As above. ER treatment provided: IV fluids, Bentyl, Zofran, Reglan, Toradol, and swollen On reassessment the patient felt better. Diagnostics interpreted by me: The labs revealed negative C. difficile. No leukocytosis. Hyperglycemia without DKA. Repeat glucose is improved and was 250. This is done by POC and did not cross over Exam and history seem consistent with diarrhea and hyperglycemia without DKA. Patient did not have an acute abdomen on exam. She felt much better after being medicated as above. She's had multiple CT scans in the past. She had a negative lactic acid. No white count. I do not believe at this time she needs another CT scan to rule out infectious process and she clearly does not have an acute surgical abdomen. She is advised follow-up with her GI doctor in a few days or here in the ER sooner for abdominal pain, fevers, vomiting, worsening signs or symptoms or as needed. By the evaluation outlined above emergent etiologies such as appendicitis, diverticulitis, PUD, biliary pathology, UTI, pancreatitis, obstruction, mesenteric ischemia, aortic pathology, infections, inflammatory bowel disease, renal colic, as well as others were deemed relatively unlikely. The pt informed about the findings as listed above. All questions were answered and pleased with the treatment. Return instructions were outlined and the patient was discharged in stable condition. Outpatient prescription management: zofran Referral: The patient was referred back to their primary care physician and GI for follow- up in 2 to 3 days for a recheck of the current condition. case reviewed with my Attending Medical Decision As above Medication Reconcilliation Current Medication List: was personally reviewed by me Blood Pressure Screening Patient's blood pressure: Elevated blood pressure Blood pressure disposition: Elevated BP felt to be situational Impression Primary Impression: Diarrhea Additional Impression: Hyperglycemia due to type 2 diabetes mellitus Departure Information Dispostion Home / Self-Care Condition GOOD Referrals Yousuf Garcia M.D. (PCP) Forms HOME CARE DOCUMENTATION FORM, IMPORTANT VISIT INFORMATION Patient Instructions Diarrhea, My [facility], ED Diet [place] Additional Instructions Monitor your blood sugar. It was high today. DO NOT drive, drink alcohol, operate machinery, or perform dangerous activities today. You were given medications in the ER that can affect your ability to safely function or operate a vehicle. Zofran(odansetron) tablets 4mg: Take one and allow it to dissolve in your mouth every four to six hours as needed for nausea or vomiting. Ibuprofen(Motrin, Advil) may be used for fever or pain. Use 600mg every six hours as needed. Take with food. Avoid using more than 2400mg in a 24 hour period. Do not use 2400mg per day for more than three consecutive days without physician direction. Prolonged inappropriate use can lead to stomach upset or ulcers. (AND/OR) Acetaminophen(Tylenol) may be used for fever or pain. Use 1000mg every six hours as needed. Avoid using more than 3000mg in a 24 hour period. Rest and drink plenty of fluids as tolerated. Slow sips of water or sports drinks are recommended instead of large amounts all at once. Continue current medications. Once your stomach is settled start with a clear liquid diet (jello, soup broth, etc.) and then advance as tolerated. You should avoid full, heavy meals for about 24 hrs from the time your symptoms resolved. Return to the ER for persistent vomiting, fevers, abdominal pain, chest pains, difficulty breathing, black or bloody stools, worsening of your condition, or as needed. Follow up with your primary physician and GI in 2-3 days for a recheck of your current condition. Problem Qualifiers Primary Impression: Diarrhea Diarrhea type: unspecified type Qualified Codes: R19.7 - Diarrhea, unspecified Additional Impression: Hyperglycemia due to type 2 diabetes mellitus Diabetes mellitus international representative insulin use: with international representative use Qualified Codes: E11.65 - Type 2 diabetes mellitus with hyperglycemia; Z79.4 - custodial ( current) use of insulin
== END 2017-04-05 02:55 | disposition home or self-care (01) ==
LOC: C.EDB 23:06 → C.EDA 04-05 02:55
DX: R19.7 Diarrhea, unspecified (principal); E11.65 Type 2 diabetes mellitus with hyperglycemia; K51.90 Ulcerative colitis, unspecified, without complications; F17.200 Nicotine dependence, unspecified, uncomplicated; Z86.19 Personal history of other infectious and parasitic diseases; Z98.890 Other specified postprocedural states; Z83.3 Family history of diabetes mellitus; Z82.49 Family history of ischemic heart disease and other diseases of the circulatory system; Z79.4 Long term (current) use of insulin; Z79.899 Other long term (current) drug therapy

== ENCOUNTER 2017-09-26 16:45 | Emergency (ER) | payer OTHER ==
[~2017-09-26] VITALS: Ht 157.5 cm; Wt 105.0 kg
[~2017-09-26 16:45] MED LIST changes: +GABA-1219 PO; -GABA1CAP4 PO; -INSDGIPEN SC; +INSPMPNVLG SQ; +LAMO150T PO; -LAMO150T32 PO; +MESA1TAB4 PO; -MESA800T6 PO
[2017-09-26 16:47] VITALS: TEMP 36.9; Ht 157.5 cm; Wt 105.0 kg
[2017-09-26] MEDS ORDERED: HYDROmorphone INJ 1 MG/ML SYR IV STA ×2 (16:56→18:02)
[2017-09-26] MEDS ORDERED: ONDANSETRON INJ 2 MG/ML 2 ML VIAL IV STA (16:56)
[2017-09-26] MEDS ORDERED: SODIUM CHLORIDE 0.9% 1000ML 1,000 ML IV STA (16:56)
--- NOTE | 2017-09-26 17:01 | EMERGENCY ROOM VISIT NOTE ---
History Report prepared by Eileen: Yudelka Aguilera Under the Supervision of: Dr. Maximus Haney M.D. 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 She notes she has bright red blood in her stools but denies any blood or melena. She also has left sided abdominal pain, nausea, or fever. History of ulcerative colitis. Bowel movements worsen her abdominal pain. She denies any chance of . She denies any urinary symptoms such as vaginal bleeding or pain with urination. 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 A total of ten systems were reviewed and were otherwise negative. 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 (5) Ulcerative colitis Family History Cancer Diabetes mellitus Gallbladder disease Heart disease Hypertension Social History Smoking Status: Current Every Day Smoker Alcohol Use: occasionally Drug Use: none Marital Status: Housing Status: lives with family Occupation Status: other Current/Historical Medications Scheduled Dicyclomine Hcl (Bentyl), 10 MG PO QID Escitalopram Oxalate (Lexapro), 20 MG PO HS Fish Oil ([place]-3), 1 CAP PO DAILY Gabapentin (Gabapentin), 300 MG PO BID Home O2 Therapy (Oxygen), 2 LITERS NA HS Insulin Glargine (Lantus), 50 UNITS SC AMPM Insulin Human Lispro (Insulin Humalog Pump ), 1 EA N/A UD Lamotrigine (Lamictal), 300 MG PO HS Lisinopril (Lisinopril), 5 MG PO DAILY Mesalamine (Asacol Hd), 2,400 MG PO TID Scheduled PRN Lorazepam (Ativan), 1 MG PO BID PRN for Anxiety/Agitation Zolpidem Tartrate (Ambien), 10 MG PO HS PRN for Sleep Allergies Coded Allergies: No Known Allergies (Unverified , 09/26/17) Physical Exam Vital Signs Date Time Temp Pulse Resp B/P (MAP) Pulse Ox O2 Delivery O2 Flow Rate FiO2 09/26/17 19:04 95 18 131/89 94 Room Air 09/26/17 18:10 103 18 131/111 95 Room Air 09/26/17 16:47 36.9 114 16 142/87 99 Room Air Physical Exam Physical Exam GENERAL: She is oriented to person, place, and time. She appears well- developed and well-nourished. She does not appear distressed. ____ HENT: Exam performed. Head: Normocephalic and atraumatic. Right Ear: External ear normal. No mastoid tenderness. Left Ear: External ear normal. No mastoid tenderness. Mouth/Throat: The oropharynx is clear and moist. No trismus in the jaw. No dental abscesses or uvula swelling. No oropharyngeal exudate or tonsillar abscesses. ____ EYES: Conjunctivae and EOM are normal. Pupils are equal, round, and reactive to light. Right eye exhibits no discharge. Left eye exhibits no discharge. No scleral icterus. ____ NECK: Normal range of motion. Neck supple. No JVD present. No spinous process tenderness present. No carotid bruit present. No rigidity. No tracheal deviation and normal range of motion present. No Brudzinski's sign and no Kernig 's sign noted. ____ CV: Normal rate, regular rhythm, normal heart sounds and intact distal pulses. There is no peripheral edema. Palpable radial pulses bue. ____ PULM/CHEST: Effort normal and breath sounds normal. No respiratory distress. No stridor. She has no wheezes. She has no rales. Chest Wall: She exhibits no tenderness. ____ ABD: The abdomen is soft. Bowel sounds are normal. She has no distension. No mass is present. There is no rebound, no guarding, no Villanueva's sign and no tenderness at McBurney's point. Rovsig negative. Insulin pump present on her anterior abdomen. Pain on palpation of LLQ. MUSC/SKEL: Normal range of motion. There is no peripheral edema, tenderness or deformity. LYMPH: No cervical adenopathy. ____ NEURO: She is alert and oriented to person, place, and time. She has normal strength. No cranial nerve deficit or sensory deficit. Coordination and gait normal. GCS eye subscore is 4. GCS verbal subscore is 5. GCS motor subscore is 6. Cerebellar tests wnl. ____ SKIN: Skin is warm and dry. She is not diaphoretic. ____ PSYCH: She has a normal mood and affect. Her behavior is normal. Judgment and thought content normal. ____ Medical Decision & Procedures ER Provider Diagnostic Interpretation: Radiology results as stated below per my review and radiologist interpretation: ABD/PELVIS IV CONTRAST ONLY CLINICAL HISTORY: 41 years-old Female presenting with llq pain r/o diverticulitis hx of UC, diarrhea, left-sided pain, nausea, back headache. TECHNIQUE: Multidetector CT of the abdomen and pelvis was performed after the administration of intravenous contrast. IV contrast: 116 mL of Optiray 320. A dose lowering technique was used consistent with the principles of ALARA (as low as reasonably achievable). COMPARISON: 12/07/2016. CT DOSE (mGy.cm): The estimated cumulative dose is 1382.12 mGy.cm. FINDINGS: Hood Fitter topogram: Cholecystectomy clips noted. Lung bases: Minimal basilar opacities, likely atelectasis. Mosaic attenuation could suggest small airways disease. Normal heart size. No pericardial or pleural effusion. Liver: Normal morphology. Suggestion of hepatic steatosis. No focal lesion. Patent hepatic vasculature. Biliary: Mild biliary ductal prominence likely a reservoir effect in the post cholecystectomy state. Gallbladder surgically absent. Pancreas: Moderate parenchymal atrophy. Mild pancreatic ductal prominence. Spleen: Normal. Adrenal glands: Normal. Kidneys and ureters: Normal. No hydronephrosis. Bladder: Normal. Pelvic organs: Uterus surgically absent. Bowel: Ileal pouch anal anastomosis with postsurgical changes of total proctocolectomy. A second small bowel anastomosis is evident in the right mid abdomen. No bowel obstruction. Peritoneal cavity: No free fluid or intraperitoneal gas. Lymph nodes: Few subcentimeter lymph nodes in the portacaval and valdo hepatis regions, likely reactive. Vasculature: Aorta and IVC patent and normal in caliber. Abdominal wall: Fat-containing ventral hernia in the pelvis immediately superior to the pubic symphysis and to the left of midline. Postsurgical changes from prior ventral hernia repair with a surgical mesh that does not appear to the restraining the likely recurrent small fat-containing ventral hernia to the right of midline. Musculoskeletal: Normal. IMPRESSION: 1. Fat-containing hernia in the ventral abdominal wall immediately superior to the pubic symphysis and to the left of midline. 2. Postsurgical changes of the ileal pouch anal anastomosis and total proctocolectomy. No evidence of inflammatory change of the bowel. No bowel obstruction. 3. Suggestion of hepatic steatosis. Electronically signed by: Jarocho Churchill M.D. 09/26/2017 6:54 PM Dictated Date/Time: 09/26/2017 6:47 PM Laboratory Results 09/26/17 17:18 Red Blood Count 4.97, Mean Corpuscular Volume 78.7, Mean Corpuscular Hemoglobin 28.2, Mean Corpuscular Hemoglobin Concent 35.8, Mean Platelet Volume 8.3, Neutrophils (%) (Auto) 69.5, Lymphocytes (%) (Auto) 21.0, Monocytes (%) (Auto) 6.7, Eosinophils (%) (Auto) 2.1, Basophils (%) (Auto) 0.2, Neutrophils # (Auto) 7.57, Lymphocytes # (Auto) 2.29, Monocytes # (Auto) 0.73, Eosinophils # (Auto) 0.23, Basophils # (Auto) 0.02 09/26/17 17:18 Test 09/26/17 17:18 White Blood Count 10.89 K/uL (4.8-10.8) Red Blood Count 4.97 M/uL (4.2-5.4) Hemoglobin 14.0 g/dL (12.0-16.0) Hematocrit 39.1 % (37-47) Mean Corpuscular Volume 78.7 fL (80-100) Mean Corpuscular Hemoglobin 28.2 pg (25-34) Mean Corpuscular Hemoglobin Concent 35.8 g/dl (32-36) Platelet Count 149 K/uL (130-400) Mean Platelet Volume 8.3 fL (7.4-10.4) Neutrophils (%) (Auto) 69.5 % Lymphocytes (%) (Auto) 21.0 % Monocytes (%) (Auto) 6.7 % Eosinophils (%) (Auto) 2.1 % Basophils (%) (Auto) 0.2 % Neutrophils # (Auto) 7.57 K/uL (1.4-6.5) Lymphocytes # (Auto) 2.29 K/uL (1.2-3.4) Monocytes # (Auto) 0.73 K/uL (0.11-0.59) Eosinophils # (Auto) 0.23 K/uL (0-0.5) Basophils # (Auto) 0.02 K/uL (0-0.2) RDW Standard Deviation 38.3 fL (36.4-46.3) RDW Coefficient of Variation 13.8 % (11.5-14.5) Immature Granulocyte % (Auto) 0.5 % Immature Granulocyte # (Auto) 0.05 K/uL (0.00-0.02) Urine Color YELLOW Urine Appearance CLOUDY (CLEAR) Urine pH 5.0 (4.5-7.5) Urine Specific [place] 1.019 (1.000-1.030) Urine Protein NEG (NEG) Urine Glucose (UA) 2+ (NEG) Urine Ketones NEG (NEG) Urine Occult Blood TRACE (NEG) Urine Nitrite NEG (NEG) Urine Bilirubin NEG (NEG) Urine Urobilinogen NEG (NEG) Urine Leukocyte Esterase SMALL (NEG) Urine WBC (Auto) 5-10 /hpf (0-5) Urine RBC (Auto) 0-4 /hpf (0-4) Urine Hyaline Casts (Auto) 1-5 /lpf (0-5) Urine Epithelial Cells (Auto) >30 /lpf (0-5) Urine Bacteria (Auto) 1+ (NEG) Urine Test NEG (NEG) Anion Gap 12.0 mmol/L (3-11) Est Creatinine Clear Calc Drug Dose 105.5 ml/min Estimated GFR () 107.0 Estimated GFR (Non- 92.3 BUN/Creatinine Ratio 14.1 (10-20) Calcium Level 9.1 mg/dl (8.5-10.1) Total Bilirubin 0.9 mg/dl (0.2-1) Direct Bilirubin 0.2 mg/dl (0-0.2) Aspartate Amino Transf (AST/SGOT) 55 U/L (15-37) Alanine Aminotransferase (ALT/SGPT) 84 U/L (12-78) Alkaline Phosphatase 149 U/L (45-117) Total Protein 8.1 gm/dl (6.4-8.2) Albumin 3.6 gm/dl (3.4-5.0) Lipase 154 U/L (73-393) Date/Time Source Procedure Growth Status 09/26/17 17:18 Stool C.difficile Toxin B Gene (PCR) - Final No C. difficile toxin B gene detected Complete Laboratory results reviewed by me Medications Administered Medications (Trade) Dose Ordered Sig/Brenda Route Start Time Stop Time Status Last Admin Dose Admin Sodium Chloride 1,000 ml @ 999 mls/hr Q1H1M STAT IV 09/26/17 16:56 09/26/17 17:56 DC 09/26/17 17:16 999 MLS/HR Hydromorphone HCl (Dilaudid Inj) 1 mg ONE STAT IV 09/26/17 16:56 09/26/17 16:58 DC 09/26/17 17:17 1 MG Ondansetron HCl (Zofran Inj) 4 mg NOW STAT IV 09/26/17 16:56 09/26/17 16:58 DC 09/26/17 17:16 4 MG Hydromorphone HCl (Dilaudid Inj) 1 mg NOW STAT IV 09/26/17 18:02 09/26/17 18:03 DC 09/26/17 18:10 1 MG ED Course 4: The patient was evaluated in room B11. A complete history and physical exam was performed. 165: Zofran Inj 4 mg IV Dilaudid Inj 1 mg IV Sodium Chloride 1000 ml @ 999 mls/hr 1800: On repeat exam the patient continues to have pain on palpation of the LLQ. The patient will receive more pain medication. Will do a CAT scan to rule to diverticulitis 1802: Dilaudid Inj 1 mg IV 1903: CT shows fat-containing hernia in the ventral abdominal wall immediately superior to the pubic symphysis and the left of the midline. No bowel containing hernia. Discussed with Dr. Hope, general surgery. He states no acute surgical intervention required given that the hernia is only fat- containing. 1906: I discussed the patient's case with GI on-call for Dr. Estrada, who states that the patient is in stable condition to be discharged. 1911: Her vitals are stable and she was made aware of the CT results and planned to follow up with Dr. Estrada, GI. DISCHARGE - Plan of care discussed with patient and questions answered. The patient was given both verbal and printed discharge instructions. The patient verbalized understanding and ability to comply. The patient is to seek outpatient follow up as noted in the discharge instructions. The patient verbalized understanding and ability to comply. The patient is discharged in stable condition. The patient was instructed to return for worsening symptoms. Medical Decision 1654: The patient was evaluated in room B11. A complete history and physical exam was performed. 1656: Zofran Inj 4 mg IV Dilaudid Inj 1 mg IV Sodium Chloride 1000 ml @ 999 mls/hr 1800: On repeat exam the patient continues to have pain on palpation of the LLQ. The patient will receive more pain medication. Will do a CAT scan to rule to diverticulitis 1802: Dilaudid Inj 1 mg IV 190: CT shows fat-containing hernia in the ventral abdominal wall immediately superior to the pubic symphysis and the left of the midline. No bowel containing hernia. Discussed with Dr. Hope, general surgery. He states no acute surgical intervention required given that the hernia is only fat- containing. 1906: I discussed the patient's case with GI on-call for Dr. Estrada, who states that the patient is in stable condition to be discharged. 1911: Her vitals are stable and she was made aware of the CT results and planned to follow up with MICHAEL Mcghee. DISCHARGE - Plan of care discussed with patient and questions answered. The patient was given both verbal and printed discharge instructions. The patient verbalized understanding and ability to comply. The patient is to seek outpatient follow up as noted in the discharge instructions. The patient verbalized understanding and ability to comply. The patient is discharged in stable condition. The patient was instructed to return for worsening symptoms. Medication Reconcilliation Current Medication List: was personally reviewed by me Blood Pressure Screening Patient's blood pressure: Elevated blood pressure Blood pressure disposition: Elevated BP felt to be situational Consults Time Called: 1899 Consulting Physician: Dr. Hope Returned Call: [address] Hope. He states no acute surgical. He agrees that the CT does not need any surgical intervention since there is bowel containing hernia. Additional Consults: Time Called: 1904 Consulted Physician: MICHAEL Mcghee Returned Call: 1906 Additional Comments: I discussed the patient's case with MICHAEL Mcghee who states that the patient is in stable condition to be discharged. Impression Primary Impression: LLQ abdominal pain Additional Impression: Ulcerative colitis Scribe Attestation The scribe's documentation has been prepared under my direction and personally reviewed by me in its entirety. I confirm that the note above accurately reflects all work, treatment, procedures, and medical decision making performed by me. The chart was completed utilizing [employer] Speech voice recognition software. Grammatical errors, random word insertions, pronoun errors, and incomplete sentences are an occasional consequence of this system due to software limitations, ambient noise, and hardware issues. Any formal questions or concerns about the content, text, or information contained within the body of this dictation should be directly addressed to the physician for clarification. Departure Information Dispostion Home / Self-Care Referrals Yousuf Garcia M.D. (PCP) Forms HOME CARE DOCUMENTATION FORM, IMPORTANT VISIT INFORMATION, WORK / SCHOOL INSTRUCTIONS Patient Instructions My [facility] Health Problem Qualifiers
[2017-09-26 17:31] LABS: BASO % 0.2 %; BASO ABS # 0.02 K/uL (0-0.2); EOS % 2.1 %; EOS ABS # 0.23 K/uL (0-0.5); HEMATOCRIT 39.1 % (37-47); IG# 0.05 K/uL (0.00-0.02); LYMPH ABS # 2.29 K/uL (1.2-3.4); MEAN CELL VOLUME 78.7 fL (80-100); MEAN CORPUSCULAR HEMOGLOBIN 28.2 pg (25-34); MEAN CORPUSCULAR HGB CONC 35.8 g/dl (32-36); MEAN PLATELET VOLUME 8.3 fL (7.4-10.4); MONO % 6.7 %; MONO ABS # 0.73 K/uL (0.11-0.59); NEUT % 69.5 %; NEUT ABS # 7.57 K/uL (1.4-6.5); PLATELET COUNT 149 K/uL (130-400); RED CELL DISTRIBUTION WIDTH CV 13.8 % (11.5-14.5); RED CELL DISTRIBUTION WIDTH SD 38.3 fL (36.4-46.3); WHITE BLOOD COUNT 10.89 K/uL (4.8-10.8)
[2017-09-26 17:48] LABS: ALBUMIN 3.6 gm/dl (3.4-5.0); CALCIUM 9.1 mg/dl (8.5-10.1); CREATININE 0.79 mg/dl (0.60-1.20); POTASSIUM 3.7 mmol/L (3.5-5.1)
[2017-09-26 17:51] LABS: TOTAL PROTEIN 8.1 gm/dl (6.4-8.2)
[2017-09-26] MEDS ORDERED: INSPMPHMLG (18:04)
[2017-09-26] MEDS ORDERED: INSDGI SC (18:04)
[2017-09-26] MEDS ORDERED: OPTIRAY 320 IV PRN (18:45)
--- NOTE | 2017-09-26 18:55 | DIAGNOSTIC IMAGING REPORT ---
ABD/PELVIS IV CONTRAST ONLY CLINICAL HISTORY: 41 years-old Female presenting with llq pain r/o diverticulitis hx of UC, diarrhea, left-sided pain, nausea, back headache. TECHNIQUE: Multidetector CT of the abdomen and pelvis was performed after the administration of intravenous contrast. IV contrast: 116 mL of Optiray 320. A dose lowering technique was used consistent with the principles of ALARA (as low as reasonably achievable). COMPARISON: 12/07/2016. CT DOSE (mGy.cm): The estimated cumulative dose is 1382.12 mGy.cm. FINDINGS: Fnp topogram: Cholecystectomy clips noted. Lung bases: Minimal basilar opacities, likely atelectasis. Mosaic attenuation could suggest small airways disease. Normal heart size. No pericardial or pleural effusion. Liver: Normal morphology. Suggestion of hepatic steatosis. No focal lesion. Patent hepatic vasculature. Biliary: Mild biliary ductal prominence likely a reservoir effect in the post cholecystectomy state. Gallbladder surgically absent. Pancreas: Moderate parenchymal atrophy. Mild pancreatic ductal prominence. Spleen: Normal. Adrenal glands: Normal. Kidneys and ureters: Normal. No hydronephrosis. Bladder: Normal. Pelvic organs: Uterus surgically absent. Bowel: Ileal pouch anal anastomosis with postsurgical changes of total proctocolectomy. A second small bowel anastomosis is evident in the right mid abdomen. No bowel obstruction. Peritoneal cavity: No free fluid or intraperitoneal gas. Lymph nodes: Few subcentimeter lymph nodes in the portacaval and valdo hepatis regions, likely reactive. Vasculature: Aorta and IVC patent and normal in caliber. Abdominal wall: Fat-containing ventral hernia in the pelvis immediately superior to the pubic symphysis and to the left of midline. Postsurgical changes from prior ventral hernia repair with a surgical mesh that does not appear to the restraining the likely recurrent small fat-containing ventral hernia to the right of midline. Musculoskeletal: Normal. IMPRESSION: 1. Fat-containing hernia in the ventral abdominal wall immediately superior to the pubic symphysis and to the left of midline. 2. Postsurgical changes of the ileal pouch anal anastomosis and total proctocolectomy. No evidence of inflammatory change of the bowel. No bowel obstruction. 3. Suggestion of hepatic steatosis. Electronically signed by: Jarocho Churchill M.D. 09/26/2017 6:54 PM Dictated Date/Time: 09/26/2017 6:47 PM
[2017-09-26 19:04] VITALS: BP 131/89; PULSE 95; O2SAT 94
== END 2017-09-26 19:28 | disposition home or self-care (01) ==
LOC: C.EDB 16:47
DX: R19.7 Diarrhea, unspecified (principal); R11.0 Nausea; R10.32 Left lower quadrant pain; K51.90 Ulcerative colitis, unspecified, without complications; F17.200 Nicotine dependence, unspecified, uncomplicated; Z79.899 Other long term (current) drug therapy; Z83.79 Family history of other diseases of the digestive system; Z82.49 Family history of ischemic heart disease and other diseases of the circulatory system

== ENCOUNTER 2018-01-25 12:47 | Emergency (ER) | payer OTHER ==
[~2018-01-25] VITALS: Ht 157.5 cm; Wt 107.3 kg
[~2018-01-25 12:47] MED LIST changes: +INSDGI SC; +INSPMPHMLG; -INSPMPNVLG SQ; -LAMO150T PO; +LISI-730 PO; -LSN5 PO; -MESA1TAB4 PO; -OMEG10007 PO
[2018-01-25 12:50] VITALS: TEMP 36.9; Ht 157.5 cm; Wt 107.3 kg
[2018-01-25] MEDS ORDERED: SODIUM CHLORIDE 0.9% 1000ML 1,000 ML IV STA (13:22)
[2018-01-25] MEDS ORDERED: ONDANSETRON INJ 2 MG/ML 2 ML VIAL IV STA (13:22)
[2018-01-25] MEDS ORDERED: HYDROmorphone INJ 1 MG/ML SYR IV STA (13:22)
[2018-01-25] MEDS ORDERED: OPTIRAY 320 IV PRN (13:30)
[2018-01-25 13:43] LABS: BASO % 0.2 %; BASO ABS # 0.02 K/uL (0-0.2); EOS % 1.7 %; EOS ABS # 0.15 K/uL (0-0.5); HEMOGLOBIN 13.1 g/dL (12.0-16.0); IG# 0.04 K/uL (0.00-0.02); LYMPH % 25.4 %; LYMPH ABS # 2.29 K/uL (1.2-3.4); MEAN CELL VOLUME 79.2 fL (80-100); MEAN CORPUSCULAR HEMOGLOBIN 27.3 pg (25-34); MEAN CORPUSCULAR HGB CONC 34.5 g/dl (32-36); MEAN PLATELET VOLUME 8.4 fL (7.4-10.4); MONO % 6.8 %; MONO ABS # 0.61 K/uL (0.11-0.59); NEUT % 65.5 %; NEUT ABS # 5.92 K/uL (1.4-6.5); PLATELET COUNT 159 K/uL (130-400); RED CELL DISTRIBUTION WIDTH SD 39.4 fL (36.4-46.3); WHITE BLOOD COUNT 9.03 K/uL (4.8-10.8)
--- NOTE | 2018-01-25 13:48 | EMERGENCY ROOM VISIT NOTE ---
History First contact with patient: 13:01 Chief Complaint: DIARRHEA Stated Complaint: ALOT OF DIARRHEA,LEFT SIDE PAIN,NAUSEA,FEEL DEHYDR Nursing Triage Summary: Pt states that she has had diarrhea for the last 2 days. Pt started to have pain in her left lower abdomen. Pt has also had nausea and vomited 1 time. Pt is to have a colonoscopy tomorrow with Dr. Estrada. Pt does have a history of colitis. Pt states that she thinks she may be dehydrated. History of Present Illness The patient is a 42 year old female who presents to the Emergency Room with complaints of diarrhea and left lower abdominal pain. The patient states she has had frequent diarrhea for the past 2 days. She states that for the past 1 day, she has had pain in her left lower abdomen. She rates the pain an 8/10 and states it is a constant, sharp pain. The pain is worse when she is up and walking. She has tried multiple [id number] medications including Tylenol , ibuprofen and naproxen without improvement of her symptoms. She had one episode of vomiting this morning and has been very nauseous. She feels she is dehydrated and is developing a headache. She has had a small amount of blood in her stool when wiping. She has a history of ulcerative colitis and is actually scheduled for a colonoscopy tomorrow. 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 She has previously had surgery for ulcerative colitis. She is currently not on any medication for her ulcerative colitis. She is a type II diabetic with neuropathy. She uses an insulin pump. She does state that this pain is slightly different from her typical ulcerative colitis pain. She denies fevers , chest pain, shortness of breath, vaginal discharge or urinary symptoms. She denies recent antibiotic use, foreign travel, consumption of uncooked foods, or drinking from any [place] or streams. Review of Systems A complete 10 point review of systems was reviewed with the patient with pertinent positives and negatives as per history of present illness. All else were negative. 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 (5) Ulcerative colitis Family History Cancer Diabetes mellitus Gallbladder disease Heart disease Hypertension Social History Smoking Status: Current Every Day Smoker Alcohol Use: occasionally Drug Use: none Marital Status: Housing Status: lives with family Occupation Status: other Current/Historical Medications Scheduled Acetaminophen (Tylenol), 1,000 MG PO UD Dicyclomine Hcl (Bentyl), 10 MG PO QID Escitalopram Oxalate (Lexapro), 20 MG PO HS Gabapentin (Gabapentin), 300 MG PO BID Home O2 Therapy (Oxygen), 2 LITERS NA HS Ibuprofen (Advil), 200 MG PO UD Insulin Glargine (Lantus), 50 UNITS SC AMPM Insulin Human Lispro (Insulin Humalog Pump ), 1 EA N/A UD Lisinopril (Lisinopril), 5 MG PO QAM Scheduled PRN Lorazepam (Ativan), 1 MG PO BID PRN for Anxiety/Agitation Zolpidem Tartrate (Ambien), 10 MG PO HS PRN for Sleep Physical Exam Vital Signs Date Time Temp Pulse Resp B/P (MAP) Pulse Ox O2 Delivery O2 Flow Rate FiO2 01/25/18 17:04 83 20 130/96 97 01/25/18 14:45 92 20 136/92 95 Room Air 01/25/18 12:50 36.9 105 18 150/84 99 Room Air Physical Exam VITALS: Vitals are noted on the nurse's note and reviewed by myself. Vital signs stable. GENERAL: This is a 42-year-old female, in no acute distress, nondiaphoretic, well-developed well-nourished. SKIN: The skin was without rashes. EARS: External auditory canals clear, tympanic membranes pearly zamarripa without erythema or effusion bilaterally. EYES: Pupils equal round and reactive to light and accommodation. MOUTH: Mucous membranes moist. NECK: Supple without nuchal rigidity. HEART: Regular rate and rhythm without murmurs gallops or rubs. LUNGS: Clear to auscultation bilaterally without wheezes, rales or rhonchi. ABDOMEN: Positive bowel sounds x 4. Soft, nondistended. There is moderate tenderness in the left lower quadrant. No guarding or rebound tenderness. NEURO: Patient was alert and oriented to person place and time. Medical Decision & Procedures ER Provider Diagnostic Interpretation: ABD/PELVIS IV AND ORAL CONT CT DOSE: 1025.62 mGycm HISTORY: Pain llq pain, diarrhea, hx UC TECHNIQUE: Multiaxial CT images of the abdomen and pelvis were performed following the use of intravenous and oral contrast. A dose lowering technique was utilized adhering to the principles of ALARA. COMPARISON STUDY: 09/26/2017 FINDINGS: Lung bases are clear. Fatty infiltration of the liver. Spleen is unremarkable. Cholecystectomy. Kidneys enhance uniformly. No evidence for hydronephrosis. There are several small reactive mesenteric nodes. Postoperative changes of an ileal pouch with an anastomosis are unchanged. There are no obstructive characteristics. There is no evidence for abscess collection or obstruction. There is no significant bowel wall edematous change. IMPRESSION: 1. Stable postoperative change as described previously.. 2. Fatty infiltration of liver. 3. No acute process of the abdomen or pelvis. Laboratory Results 01/25/18 13:35 Red Blood Count 4.80, Mean Corpuscular Volume 79.2, Mean Corpuscular Hemoglobin 27.3, Mean Corpuscular Hemoglobin Concent 34.5, Mean Platelet Volume 8.4, Neutrophils (%) (Auto) 65.5, Lymphocytes (%) (Auto) 25.4, Monocytes (%) (Auto) 6.8, Eosinophils (%) (Auto) 1.7, Basophils (%) (Auto) 0.2, Neutrophils # (Auto) 5.92, Lymphocytes # (Auto) 2.29, Monocytes # (Auto) 0.61, Eosinophils # (Auto) 0.15, Basophils # (Auto) 0.02 01/25/18 13:35 Test 01/25/18 13:31 01/25/18 13:35 Urine Color YELLOW Urine Appearance CLEAR (CLEAR) Urine pH 5.0 (4.5-7.5) Urine Specific Vivian 1.023 (1.000-1.030) Urine Protein NEG (NEG) Urine Glucose (UA) 3+ (NEG) Urine Ketones NEG (NEG) Urine Occult Blood NEG (NEG) Urine Nitrite NEG (NEG) Urine Bilirubin NEG (NEG) Urine Urobilinogen NEG (NEG) Urine Leukocyte Esterase TRACE (NEG) Urine WBC (Auto) 1-5 /hpf (0-5) Urine RBC (Auto) 0-4 /hpf (0-4) Urine Hyaline Casts (Auto) 1-5 /lpf (0-5) Urine Epithelial Cells (Auto) >30 /lpf (0-5) Urine Bacteria (Auto) NEG (NEG) Urine Test NEG (NEG) White Blood Count 9.03 K/uL (4.8-10.8) Red Blood Count 4.80 M/uL (4.2-5.4) Hemoglobin 13.1 g/dL (12.0-16.0) Hematocrit 38.0 % (37-47) Mean Corpuscular Volume 79.2 fL (80-100) Mean Corpuscular Hemoglobin 27.3 pg (25-34) Mean Corpuscular Hemoglobin Concent 34.5 g/dl (32-36) Platelet Count 159 K/uL (130-400) Mean Platelet Volume 8.4 fL (7.4-10.4) Neutrophils (%) (Auto) 65.5 % Lymphocytes (%) (Auto) 25.4 % Monocytes (%) (Auto) 6.8 % Eosinophils (%) (Auto) 1.7 % Basophils (%) (Auto) 0.2 % Neutrophils # (Auto) 5.92 K/uL (1.4-6.5) Lymphocytes # (Auto) 2.29 K/uL (1.2-3.4) Monocytes # (Auto) 0.61 K/uL (0.11-0.59) Eosinophils # (Auto) 0.15 K/uL (0-0.5) Basophils # (Auto) 0.02 K/uL (0-0.2) RDW Standard Deviation 39.4 fL (36.4-46.3) RDW Coefficient of Variation 14.0 % (11.5-14.5) Immature Granulocyte % (Auto) 0.4 % Immature Granulocyte # (Auto) 0.04 K/uL (0.00-0.02) Anion Gap 8.0 mmol/L (3-11) Est Creatinine Clear Calc Drug Dose 116.1 ml/min Estimated GFR () 118.9 Estimated GFR (Non- 102.6 BUN/Creatinine Ratio 16.3 (10-20) Calcium Level 9.2 mg/dl (8.5-10.1) Total Bilirubin 0.8 mg/dl (0.2-1) Aspartate Amino Transf (AST/SGOT) 75 U/L (15-37) Alanine Aminotransferase (ALT/SGPT) 94 U/L (12-78) Alkaline Phosphatase 139 U/L (45-117) Total Protein 7.5 gm/dl (6.4-8.2) Albumin 3.4 gm/dl (3.4-5.0) Globulin 4.1 gm/dl (2.5-4.0) Albumin/Globulin Ratio 0.8 (0.9-2) Lipase 74 U/L (73-393) Beta-Hydroxybutyric Acid mg/dL (0.2-2.81) Medications Administered Medications (Trade) Dose Ordered Sig/Brenda Route Start Time Stop Time Status Last Admin Dose Admin Sodium Chloride 1,000 ml @ 999 mls/hr Q1H1M STAT IV 01/25/18 13:22 01/25/18 14:22 DC 01/25/18 13:42 999 MLS/HR Ondansetron HCl (Zofran Inj) 4 mg NOW STAT IV 01/25/18 13:22 01/25/18 13:25 DC 01/25/18 13:42 4 MG Hydromorphone HCl (Dilaudid Inj) 1 mg NOW STAT IV 01/25/18 13:22 01/25/18 13:25 DC 01/25/18 13:43 1 MG Promethazine HCl 12.5 mg/Sodium Chloride 50.5 ml @ 204 mls/hr NOW STAT IV 01/25/18 14:49 01/25/18 15:03 DC 01/25/18 15:12 204 MLS/HR Medical Decision Differential diagnosis includes diverticulitis, ulcerative colitis flare, bowel obstruction, gastroenteritis, UTI, among others. The patient is a 42-year-old female who presents today complaining of left lower quadrant abdominal pain. Labs revealed no leukocytosis or concerning anemia. LFTs are elevated, which appears to be baseline for the patient. Glucose is elevated at 324. Urinalysis was not suggestive of infection. Urine was negative. CT of the abdomen and pelvis was performed and shows no acute findings. Patient is scheduled for a colonoscopy tomorrow. She was advised to follow-up with her sanitation worker cleaning equipment for further evaluation. She was treated with pain and nausea medication while in the emergency department. Based on the patient's presentation and work up, I feel the patient is stable for outpatient treatment. The patient was educated to return to the emergency department for any worsening of their current condition or new/concerning symptoms. She will follow up with gastroenterology. Medication Reconcilliation Current Medication List: was personally reviewed by me Blood Pressure Screening Patient's blood pressure: Elevated blood pressure Blood pressure disposition: Elevated BP felt to be situational Impression Primary Impression: LLQ abdominal pain Departure Information Dispostion Home / Self-Care Condition GOOD Referrals Yousuf Garcia M.D. (PCP) Kishore Estrada D.O. Patient Instructions My [facility] Additional Instructions You have been treated in the Emergency Department your Abdominal Pain. Laboratory results and imaging studies have ruled out any emergent causes for your abdominal pain which would warrant admission or surgery. Drink plenty of water and stay well hydrated. Follow-up with Dr. Estrada as scheduled. Make sure to let him know that you were seen in the emergency department today. Return to the emergency department if your symptoms persist despite treatment plan outlined above or if the following symptoms occur: Worsening pain, fever, vomiting or other new/concerning symptoms.
[2018-01-25 14:01] LABS: ALBUMIN 3.4 gm/dl (3.4-5.0); CALCIUM 9.2 mg/dl (8.5-10.1); CREATININE 0.72 mg/dl (0.60-1.20); POTASSIUM 4.3 mmol/L (3.5-5.1); TOTAL PROTEIN 7.5 gm/dl (6.4-8.2)
[2018-01-25] MEDS ORDERED: PROMETHAZINE HCL INJ 12.5 MG in SODIUM CHLORIDE 0.9% 50ML 50 ML IV STA (14:49)
[2018-01-25] MEDS ORDERED: ACET-1256 PO (15:36)
[2018-01-25] MEDS ORDERED: IBUP-1050 PO (15:36)
--- NOTE | 2018-01-25 16:20 | DIAGNOSTIC IMAGING REPORT ---
ABD/PELVIS IV AND ORAL CONT CT DOSE: 1025.62 mGycm HISTORY: Pain llq pain, diarrhea, hx UC TECHNIQUE: Multiaxial CT images of the abdomen and pelvis were performed following the use of intravenous and oral contrast. A dose lowering technique was utilized adhering to the principles of ALARA. COMPARISON STUDY: 09/26/2017 FINDINGS: Lung bases are clear. Fatty infiltration of the liver. Spleen is unremarkable. Cholecystectomy. Kidneys enhance uniformly. No evidence for hydronephrosis. There are several small reactive mesenteric nodes. Postoperative changes of an ileal pouch with an anastomosis are unchanged. There are no obstructive characteristics. There is no evidence for abscess collection or obstruction. There is no significant bowel wall edematous change. IMPRESSION: 1. Stable postoperative change as described previously.. 2. Fatty infiltration of liver. 3. No acute process of the abdomen or pelvis. The above report was generated using voice recognition software. It may contain grammatical, syntax or spelling errors. Electronically signed by: Matty Ribeiro M.D. 01/25/2018 4:19 PM Dictated Date/Time: 01/25/2018 4:14 PM
[2018-01-25 17:04] VITALS: BP 130/96; PULSE 83; O2SAT 97
== END 2018-01-25 17:06 | disposition home or self-care (01) ==
LOC: C.EDB 12:48 → C.EDC 17:06
DX: R10.32 Left lower quadrant pain (principal); R11.2 Nausea with vomiting, unspecified; E11.43 Type 2 diabetes mellitus with diabetic autonomic (poly)neuropathy; F17.200 Nicotine dependence, unspecified, uncomplicated; Z79.4 Long term (current) use of insulin; Z79.899 Other long term (current) drug therapy

== ENCOUNTER 2021-10-09 12:40 | Observation (INO) ==
[2021-10-09] MEDS ORDERED: ONDANSETRON INJ 2 MG/ML 2 ML VIAL IV STA (13:15)
[2021-10-09] MEDS ORDERED: MoRPHine SULFATE 4 MG/ML 1 ML CARP\\VIAL IV STA ×2 (13:15→16:44)
--- NOTE | 2021-10-09 13:19 | Emergency Department Note ---
Impression & Plan SOB (shortness of breath), Fluid overload, Leukocytosis, Abnormal weight gain, Acute left flank pain ED Provider Note Or secondNAME: AMADA WEBB AGE: 45 SEX: F : 1975 ARRIVES VIA: Walk-In INFORMANT: Patient ED PROVIDER(S): Isac Gentile MD CHIEF COMPLAINT: Flank pain HISTORY OF PRESENT ILLNESS: The patient is a 45-year-old female who has issues with chronic back pain. Her neurosurgeon thinks that her left sided back pain and flank pain may be related to her back itself, not her kidneys. The patient was just discharged from the hospital in [place] for fluid overload. She was doing well up until about 3 days ago. In 3 days, she has gained 20 pounds. She feels that her abdomen is tight and her legs are swollen, especially the left. She has moderate left-sided flank pain. The pain is worse since she has gained the extra 20 pounds. There has been no cough or congestion. She is a bit more short of breath than baseline. She has not had fever, no vomiting or diarrhea. She has noticed decreased urinary output. The patient's doctors office sent her to the ED today. REVIEW OF SYSTEMS: See HPI for pertinent positives and negatives. A total of ten systems were reviewed and were otherwise negative. PMHx/PSHx: See Below SOCIAL HISTORY: See Below. PHYSICAL EXAM: GENERAL: Patient is in no acute distress. HEENT: No acute trauma, normocephalic atraumatic, mucous membranes moist, no nasal congestion, no scleral icterus. NECK: No stridor, no adenopathy, no meningismus, trachea is midline. LUNGS: Clear to auscultation bilaterally, no wheeze, no rhonchi, breath sounds equal. HEART: Without murmurs gallops or rubs, regular rate and rhythm. ABDOMEN: Soft, tender along the entire left side of the abdomen, no rash. No pe ritonitis. EXTREMITIES: No cyanosis. Moderate bilateral pedal edema slightly worse on the left. No extremity deformities. No lower extremity rash. NEUROLOGIC: Oriented x 3, no acute motor or sensory deficits, no focal weakness. SKIN: No rash, no jaundice, no diaphoresis. Back: Pain just to even touch the skin of the left flank, no rash. DIFFERENTIAL DIAGNOSIS: CHF, fluid overload, heart failure, hydronephrosis, renal failure, electrolyte imbalance, UTI, pyelonephritis, renal colic, pneumonia, among others. EMERGENCY DEPARTMENT COURSE/PROCEDURES: ECG: Indication was shortness of breath. The ECG shows a normal sinus rhythm with a rate of 82. There is no ST elevation, no PVCs. The QTc is 427. Continuous Cardiac Monitoring: An order was placed for continuous cardiac monitoring. The monitor shows a rate of 88 with normal sinus rhythm. MEDICAL DECISION MAKING: There is a mild leukocytosis, this could be consistent with infection. There is a normal hemoglobin and platelet count. No renal failure again electrolyte abnormality. There were some subtle liver enzyme elevations which have been documented before. ECG showed a normal sinus rhythm, no obvious ischemia. C ardiac enzyme testing x1 is not consistent with acute cardiac injury. BNP is not elevated making CHF less likely. There is no evidence for pancreatitis. The patient appeared to be in a euthyroid state. Urinalysis showed some contamination, no infection. COVID, influenza and RSV testing was negative. Chest film showed some atelectasis at the left base, no pneumonia, no CHF. Abdominal and pelvis he does not show hydronephrosis or issues with the kidneys. No bowel obstruction. On exam, the patient was edematous. She was not hypoxic. The patient received IV morphine for pain, a second dose of IV morphine for pain. She was given IV Zofran for nausea. She received IV Lasix to help with diuresis. I spoke with cardiology. The patient needs increased diuretic therapy for the weight gain/fluid overload. I spoke to the patient about going home on an increased dose of diuretic. She is not comfortable as she is too short of breath. She was just admitted to the hospital in [place] and is concerned that things will markedly worsen if left to go home. I spoke with the patient and upper caser. The on-call hospitalist was consulted. Of note, the left flank pain/abdominal pain appears to be more chronic in nature. She may be feeling a bit worse in the left flank/left abdomen because of her weight gain and fluid overload. Past Med/Surg History Medical History Abnormal LFTs Clostridium difficile infection Crohn disease Diabetes Hyperglycemia Left flank pain LLQ abdominal pain No pertinent family history 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 difficile Ulcerative colitis Surgical History History of colectomy Family History Other Family history non-contributory Social History Smoking Status: Former smoker Tobacco Type: Cigarettes Preferred Language: Upper Sorbian Feels Safe at Home: Yes Allergies Allergies Allergy/AdvReac Type Severity Reaction Status Date / Time nickel Allergy Mild Skin Verified 10/09/21 15:34 irritation Home Meds Home Medications Medication Instructions Recorded Confirmed pregabalin 150 mg capsule (Lyrica) 150 mg PO BID 10/30/18 10/09/21 insulin aspart U-100 100 unit/mL 30 unit SUBCUT TIDM 01/14/20 10/09/21 (3 mL) subcutaneous pen (Novolog Flexpen U-100 Insulin aspart) albuterol sulfate 90 mcg/actuation 2 puff INHALATION DIRECTED PRN 11/22/20 10/09/21 aerosol inhaler ascorbic acid (vitamin C) 500 mg 500 mg PO QAM 11/22/20 10/09/21 tablet (Vitamin C) atorvastatin 10 mg tablet 10 mg PO QAM 11/22/20 10/09/21 budesonide 3 mg 3 mg PO QDL 11/22/20 10/09/21 capsule,delayed,extended release escitalopram oxalate 20 mg tablet 20 mg PO QAM 11/22/20 10/09/21 (Lexapro) hydrocodone 5 mg-acetaminophen 325 1 tab PO TID 11/22/20 10/09/21 mg tablet lamotrigine 200 mg tablet 200 mg PO HS 11/22/20 10/09/21 (Lamictal) multivitamin 1 tab PO QAM 11/22/20 10/09/21 [id number] 2 cap PO TIDM 01/13/21 10/09/21 36,000-114,000-180,000 unit capsule,delay rel (Creon) polysaccharide iron complex 150 mg 150 mg PO QAM 01/13/21 10/09/21 iron capsule (iFerex 150) budesonide-formoterol HFA 160 2 puff INHALATION BID 03/07/21 10/09/21 mcg-4.5 mcg/actuation aerosol inhaler (Symbicort) propranolol 10 mg tablet 10 mg PO BID 03/23/21 10/09/21 furosemide 40 mg tablet 40 mg PO DAILY 10/09/21 10/09/21 insulin glargine 100 unit/mL (3 80 unit SUBCUT BID 10/09/21 10/09/21 mL) subcutaneous pen (Lantus Solostar U-100 Insulin) rivaroxaban 20 mg tablet (Xarelto) 20 mg PO DAILY 10/09/21 10/09/21 tiotropium bromide 18 mcg capsule 1 cap INHALATION DAILY 10/09/21 10/09/21 with inhalation device (Spiriva with HandiHaler) ustekinumab 130 mg/26 mL 90 mg IV .Q8WK 10/09/21 10/09/21 intravenous solution (Stelara) vitamin A 10,000 unit capsule 0 unit PO DAILY 10/09/21 10/09/21 Previous Rx's Medication Instructions Recorded ondansetron 4 mg disintegrating 4 mg PO Q6H PRN #14 tab 05/27/21 tablet Results & Data (ED) Vital Signs Vital Signs - 24 hr 10/09/21 12:42 10/09/21 13:17 10/09/21 13:30 Temperature 36.4 C L Temperature Source Temporal Artery Scan Pulse Rate 95 H 88 Pulse Rate [Left Finger] 88 Pulse Rhythm [Left Finger] Regular Pulse Strength [Left Finger] Normal Respiratory Rate 20 20 Respiratory Effort / Characteristics Non-Labored Spontaneous Non-Labored Spontaneous Respiratory Depth Normal Normal Respiratory Pattern Regular Regular Blood Pressure 198/78 H Blood Pressure [Right Arm] 174/82 H Blood Pressure Mean 118 Blood Pressure Mean [Right Arm] 112 Blood Pressure Position [Right Arm] Sitting Pulse Oximetry 95 96 95 Oxygen Delivery Method Room Air Room Air Room Air Sepsis Recent Fever Within 48 Hours No Sepsis New/Unexplained Change in Mental Status No Sepsis Action Taken by Nursing No Action Required 10/09/21 15:00 10/09/21 17:49 Temperature Temperature Source Pulse Rate Pulse Rate [Left Finger] 89 85 Pulse Rhythm [Left Finger] Regular Pulse Strength [Left Finger] Respiratory Rate 18 17 Respiratory Effort / Characteristics Non-Labored Spontaneous Respiratory Depth Normal Respiratory Pattern Blood Pressure Blood Pressure [Right Arm] 151/82 H Blood Pressure Mean Blood Pressure Mean [Right Arm] 105 Blood Pressure Position [Right Arm] Pulse Oximetry 95 95 Oxygen Delivery Method Room Air Sepsis Recent Fever Within 48 Hours Sepsis New/Unexplained Change in Mental Status Sepsis Action Taken by [facility] Medications Current Medication List: was personally reviewed by me Laboratory Data Attestation: I reviewed the patient's lab results. Result diagrams: 10/09/21 13:15 10/09/21 13:15 Lab Results 10/09/21 10/09/21 10/09/21 Range/Units 13:15 13:15 13:15 WBC 13.13 H (4.8-10.8) K/uL RBC 4.84 (4.2-5.4) M/uL Hgb 14.5 (12.0-16.0) g/dL Hct 42.8 (37-47) % MCV 88.4 (80-100) fL MCH 30.0 (25-34) pg MCHC 33.9 (32-36) g/dL RDW Std Deviation 47.8 H (36.4-46.3) fL RDW Coeff of Anna 14.7 H (11.5-14.5) % Plt Count 209 (130-400) K/uL MPV 9.3 (7.4-10.4) fL Immature Gran % (Auto) 0.3 % Neut % (Auto) 66.6 % Lymph % (Auto) 23.0 % [place] % (Auto) 8.8 % Eos % (Auto) 1.1 % Baso % (Auto) 0.2 % Neut # (Auto) 8.75 H (1.4-6.5) K/uL Lymph # (Auto) 3.02 (1.2-3.4) K/uL [place] # (Auto) 1.16 H (0.11-0.59) K/uL Eos # (Auto) 0.14 (0-0.5) K/uL Baso # (Auto) 0.02 (0-0.2) K/uL Immature Gran # (Auto) 0.04 H (0.00-0.02) K/uL Sodium 138 (136-145) mmol/L Potassium 4.0 (3.5-5.1) mmol/L Chloride 101 (98-107) mmol/L Carbon Dioxide 28 (21-32) mmol/L Anion Gap 9 (3-11) BUN 17 (6-23) mg/dl Creatinine 0.90 (0.6-1.2) mg/dl Est Cr Clr Drug Dosing 93.5 ml/min Est GFR ( Amer) 88.9 ml/min Est GFR (Non-Af Amer) 76.7 ml/min BUN/Creatinine Ratio 18.9 (10-20) Glucose 227 H (70-99(Fasting)) mg/dl Calcium 10.5 H (8.5-10.1) mg/dl Magnesium 1.7 (1.7-2.4) mg/dl Total Bilirubin 1.2 H (0.2-1.0) mg/dl AST 62 H (13-39) U/L ALT 67 H (7-52) U/L Alkaline Phosphatase 104 (34-104) U/L Troponin I High Sens 4.3 (0-14) pg/ml B-Natriuretic Peptide (0-100) pg/ml Total Protein 8.0 (6.0-8.3) gm/dl Albumin 4.2 (3.4-5.0) gm/dl Globulin 3.8 (2.5-4.0) gm/dl Albumin/Globulin Ratio 1.1 (0.9-2) Lipase 10 L (11-82) U/L TSH 0.514 (0.300-4.500) uIu/ml Urine Color Urine Appearance (Clear) Urine pH (4.5-7.5) Ur Specific [place] (1.000-1.030) Urine Protein (Negative) Urine Glucose (UA) (Negative) Urine Ketones (Negative) Urine Blood (Negative) Urine Nitrite (Negative) Urine Bilirubin (Negative) Urine Urobilinogen (Negative) Ur Leukocyte Esterase (Negative) Urine WBC (Auto) (0-5) /hpf Urine RBC (Auto) (0-4) /hpf U Hyaline Cast (Auto) (0-5) /lpf U Epithel Cells (Auto) (0-5) /lpf Urine Bacteria (Auto) (Negative) Ur Renal Epithelial Cell Urine Yeast SARS-CoV-2 (PCR) (Negative) Influenza Type A (PCR) (Neg) Influenza Type B (PCR) (Neg) RSV (RT-PCR) (Neg) 10/09/21 10/09/21 10/09/21 Range/Units 13:15 13:35 13:51 WBC (4.8-10.8) K/uL RBC (4.2-5.4) M/uL Hgb (12.0-16.0) g/dL Hct (37-47) % MCV (80-100) fL MCH (25-34) pg MCHC (32-36) g/dL RDW Std Deviation (36.4-46.3) fL RDW Coeff of Anna (11.5-14.5) % Plt Count (130-400) K/uL MPV (7.4-10.4) fL Immature Gran % (Auto) % Neut % (Auto) % Lymph % (Auto) % [place] % (Auto) % Eos % (Auto) % Baso % (Auto) % Neut # (Auto) (1.4-6.5) K/uL Lymph # (Auto) (1.2-3.4) K/uL [place] # (Auto) (0.11-0.59) K/uL Eos # (Auto) (0-0.5) K/uL Baso # (Auto) (0-0.2) K/uL Immature Gran # (Auto) (0.00-0.02) K/uL Sodium (136-145) mmol/L Potassium (3.5-5.1) mmol/L Chloride (98-107) mmol/L Carbon Dioxide (21-32) mmol/L Anion Gap (3-11) BUN (6-23) mg/dl Creatinine (0.6-1.2) mg/dl Est Cr Clr Drug Dosing ml/min Est GFR ( Amer) ml/min Est GFR (Non-Af Amer) ml/min BUN/Creatinine Ratio (10-20) Glucose (70-99(Fasting)) mg/dl Calcium (8.5-10.1) mg/dl Magnesium (1.7-2.4) mg/dl Total Bilirubin (0.2-1.0) mg/dl AST (13-39) U/L ALT (7-52) U/L Alkaline Phosphatase (34-104) U/L Troponin I High Sens (0-14) pg/ml B-Natriuretic Peptide 12 (0-100) pg/ml Total Protein (6.0-8.3) gm/dl Albumin (3.4-5.0) gm/dl Globulin (2.5-4.0) gm/dl Albumin/Globulin Ratio (0.9-2) Lipase (11-82) U/L TSH (0.300-4.500) uIu/ml Urine Color Dark Yellow Urine Appearance Turbid A (Clear) Urine pH 5.0 (4.5-7.5) Ur Specific [place] 1.029 (1.000-1.030) Urine Protein Trace H (Negative) Urine Glucose (UA) Negative (Negative) Urine Ketones 1+ H (Negative) Urine Blood Negative (Negative) Urine Nitrite Negative (Negative) Urine Bilirubin Negative (Negative) Urine Urobilinogen Negative (Negative) Ur Leukocyte Esterase Trace H (Negative) Urine WBC (Auto) 10-30 H (0-5) /hpf Urine RBC (Auto) 0-4 (0-4) /hpf U Hyaline Cast (Auto) 1-5 (0-5) /lpf U Epithel Cells (Auto) >30 H (0-5) /lpf Urine Bacteria (Auto) 1+ H (Negative) Ur Renal Epithelial Cell Not Reportable Urine Yeast Not Reportable SARS-CoV-2 (PCR) NEGATIVE (Negative) Influenza Type A (PCR) Negative (Neg) Influenza Type B (PCR) Negative (Neg) RSV (RT-PCR) Negative (Neg) Administered Medications Discontinued Medications Furosemide (Furosemide 40 Mg/4 Ml Vial) 40 mg IV ONE ONE Stop: 10/09/21 16:37 Last Admin: 10/09/21 16:50 Dose: 40 mg Documented by: [id number] Morphine Sulfate (Morphine Sulfate 4 Mg/Ml 1 Ml Carp\Vial) 4 mg IV NOW STA Stop: 10/09/21 13:16 Last Admin: 10/09/21 13:31 Dose: 4 mg Documented by: [id number] Morphine Sulfate (Morphine Sulfate 4 Mg/Ml 1 Ml Carp\Vial) 4 mg IV NOW STA Stop: 10/09/21 16:45 Last Admin: 10/09/21 16:50 Dose: 4 mg Documented by: [id number] Ondansetron HCl (Ondansetron Inj 2 Mg/Ml 2 Ml Vial) 4 mg IV NOW STA Stop: 10/09/21 13:16 Last Admin: 10/09/21 13:31 Dose: 4 mg Documented by: [id number] Imaging Data Radiologist's Impression: Abdomen/Pelvis CT 10/09/21 13:02 CT abd pelvis wo con CLINICAL HISTORY: flank pain, not urinating TECHNIQUE: Helical axial images of the abdomen and pelvis were obtained. Automated dose lowering techniques and/or adjustment according to patient size were utilized for this exam. This exam was performed without intravenous contrast. COMPARISON: Comparison is made to CT abdomen pelvis 05/27/2021 FINDINGS: Lower chest: Bibasilar atelectasis versus scarring is seen. Liver: Hepatic steatosis is noted. Gallbladder and biliary tree: Patient is status post cholecystectomy. No intra- or extrahepatic biliary ductal dilation. Pancreas: Unremarkable, no focal lesions. Spleen: Unremarkable. Adrenals: Unremarkable. Kidneys and ureters: Unremarkable. Bladder: Unremarkable. Reproductive organs: Patient is status post hysterectomy. Bowel: Patient is status post colonic resection. Lymph nodes Retroperitoneal: Unremarkable. Mesenteric: Unremarkable. Pelvic: Unremarkable. Peritoneum: Normal. Vessels: Unremarkable. Abdominal wall: Infraumbilical hernia is noted containing only fat. Postsurgical changes are seen in the midline. Bones: Posterior fixation hardware is seen in degenerative changes are seen. IMPRESSION: No evidence of nephrolithiasis or hydronephrosis. No acute abnormality is seen in particular no evidence of bowel wall thickening to suggest active Crohn's disease. Postsurgical changes of colonic resection are seen. ACT 112: Negative or not required by law. Electronically signed by: Damon Harden M.D. 10/09/2021 3:08 PM Chest X-Ray 10/09/21 13:03 XR chest 1V portable CLINICAL HISTORY: poss chf TECHNIQUE: Single frontal radiograph of the chest was obtained. Comparison: Comparison is made to chest one view 06/06/2021 FINDINGS: Exam is limited by underpenetration. The cardiomediastinal silhouette is stable. There is questionable blunting of the left costophrenic angle. No pneumothorax is seen, pleural effusions cannot be excluded. IMPRESSION: Blunting of the left costophrenic angle may represent small pleural effusion or atelectasis, pneumonia, and/or aspiration. Otherwise no acute abnormalities and in particular no evidence of CHF. ACT 112: Negative or not required by law. Electronically signed by: Damon Harden M.D. 10/09/2021 1:33 PM Discharge Plan Visit Data Chief Complaint: Flank Pain Stated Complaint: Fluid intake, lt side pain, chest tightness ED Provider: Isac Gentile Discharge Problem: SOB (shortness of breath), Fluid overload, Leukocytosis, Abnormal weight gain, Acute left flank pain Patient Disposition: Admitted As Inpatient Condition: Fair Forms Stand Alone Forms: [facility] Prescriptions Prescriptions: No Action pregabalin [Lyrica] 150 mg capsule 150 mg PO BID RF: 0 insulin aspart U-100 [Novolog Flexpen U-100 Insulin] 100 unit/mL (3 mL) insulin pen 30 unit subcut TIDM RF: 0 multivitamin Tablet 1 tab PO QAM RF: 0 lamotrigine [Lamictal] 200 mg Tablet 200 mg PO HS RF: 0 atorvastatin 10 mg tablet 10 mg PO QAM RF: 0 hydrocodone-acetaminophen 5-325 mg Tablet 1 tab PO TID RF: 0 ascorbic acid (vitamin C) [Vitamin C] 500 mg Tablet 500 mg PO QAM RF: 0 budesonide 3 mg capsule,delayed,extend.release 3 mg PO QDL RF: 0 albuterol sulfate 90 mcg/actuation Hfa Aerosol Inhaler 2 puff INHALATION DIRECTED PRN (Reason: Shortness Of Breath) RF: 0 escitalopram oxalate [Lexapro] 20 mg Tablet 20 mg PO QAM RF: 0 budesonide-formoterol [Symbicort] 160-4.5 mcg/actuation HFA aerosol inhaler 2 puff INHALATION BID RF: 0 propranolol 10 mg tablet 10 mg PO BID RF: 0 ondansetron 4 mg tablet,disintegrating 4 mg PO Q6H PRN (Reason: nausea and vomiting) Qty: 14 RF: 0 furosemide 40 mg tablet 40 mg PO DAILY RF: 0 vitamin A 10,000 unit Capsule 0 unit PO DAILY RF: 0 Spiriva with HandiHaler 18 mcg Capsule, W/Inhalation Device 1 cap INHALATION DAILY RF: 0 Lantus Solostar U-100 Insulin 100 unit/mL (3 mL) Insulin Pen 80 unit SUBCUT BID RF: 0 Xarelto 20 mg Tablet 20 mg PO DAILY RF: 0 Stelara 130 mg/26 mL Solution 90 mg IV .Q8WK RF: 0 polysaccharide iron complex [iFerex 150] 150 mg iron capsule 150 mg PO QAM RF: 0 Creon 36,000-114,000- 180,000 unit capsule,delayed release(DR/EC) 2 cap PO TIDM RF: 0 Referrals Referrals: Yousuf Garcia [Primary Care Provider] -
--- NOTE | 2021-10-09 13:35 | XRay Report ---
XR chest 1V portable CLINICAL HISTORY: poss chf TECHNIQUE: Single frontal radiograph of the chest was obtained. Comparison: Comparison is made to chest one view 06/06/2021 FINDINGS: Exam is limited by underpenetration. The cardiomediastinal silhouette is stable. There is questionabl e blunting of the left costophrenic angle. No pneumothorax is seen, pleural effusions cannot be exclu ded. IMPRESSION: Blunting of the left costophrenic angle may represent small pleural effusion or atelectasis, pneumoni a, and/or aspiration. Otherwise no acute abnormalities and in particular no evidence of CHF. ACT 112: Negative or not required by law. Electronically signed by: Damon Harden M.D. 10/09/2021 1:33 PM
[2021-10-09 13:50] LABS: Basophils # (auto) 0.02 K/uL (0-0.2); Basophils % (auto) 0.2 %; Eosinophils # (auto) 0.14 K/uL (0-0.5); Eosinophils % (auto) 1.1 %; Hematocrit (blood only) 42.8 % (37-47); Hemoglobin 14.5 g/dL (12.0-16.0); Immature Granulocytes # (auto) 0.04 K/uL (0.00-0.02); Immature Granulocytes % (auto) 0.3 %; Lymphocytes # (auto) 3.02 K/uL (1.2-3.4); Mean Corpuscular Hgb Conc 33.9 g/dL (32-36); Mean Corpuscular Volume 88.4 fL (80-100); Mean Platelet Volume 9.3 fL (7.4-10.4); Monocytes # (auto) 1.16 K/uL (0.11-0.59); Monocytes % (auto) 8.8 %; Neutrophils # (auto) 8.75 K/uL (1.4-6.5); Neutrophils % (auto) 66.6 %; Platelet Count 209 K/uL (130-400); RDW Coefficient of Variation 14.7 % (11.5-14.5); RDW Standard Deviation 47.8 fL (36.4-46.3); Red Blood Count 4.84 M/uL (4.2-5.4); White Blood Count 13.13 K/uL (4.8-10.8)
[2021-10-09 13:54] LABS: Appearance Urine Turbid (Clear); Bacteria Urine Automated 1+ (Negative); Bilirubin Urine Negative (Negative); Blood Urine Negative (Negative); Color Urine Dark Yellow; Epithelial Cell Urine Auto >30 /lpf (0-5); Glucose Urine UA Negative (Negative); Ketones Urine 1+ (Negative); Leukocyte Esterase Urine Trace (Negative); Nitrite Urine Negative (Negative); Protein Urine Trace (Negative); Specific Gravity Urine 1.029 (1.000-1.030); Urobilinogen Urine Negative (Negative)
[2021-10-09 14:12] LABS: Troponin I High Sensitivity 4.3 pg/ml (0-14)
[2021-10-09 14:15] LABS: RBC Urine Automated 0-4 /hpf (0-4)
[2021-10-09 14:19] LABS: Albumin Globulin Ratio 1.1 (0.9-2); Albumin Level 4.2 gm/dl (3.4-5.0); BUN Creatinine Ratio 18.9 (10-20); Bilirubin,Total 1.2 mg/dl (0.2-1.0); Calcium 10.5 mg/dl (8.5-10.1); Creatinine Clr Calc Pharmacy 93.5 ml/min; Est GFR (African American) 88.9 ml/min; Est GFR (Non-African American) 76.7 ml/min; Globulin 3.8 gm/dl (2.5-4.0); Magnesium 1.7 mg/dl (1.7-2.4)
--- NOTE | 2021-10-09 15:10 | CT Scan Report ---
CT abd pelvis wo con CLINICAL HISTORY: flank pain, not urinating TECHNIQUE: Helical axial images of the abdomen and pelvis were obtained. Automated dose lowering tech niques and/or adjustment according to patient size were utilized for this exam. This exam was perfor med without intravenous contrast. COMPARISON: Comparison is made to CT abdomen pelvis 05/27/2021 FINDINGS: Lower chest: Bibasilar atelectasis versus scarring is seen. Liver: Hepatic steatosis is noted. Gallbladder and biliary tree: Patient is status post cholecystectomy. No intra- or extrahepatic bilia ry ductal dilation. Pancreas: Unremarkable, no focal lesions. Spleen: Unremarkable. Adrenals: Unremarkable. Kidneys and ureters: Unremarkable. Bladder: Unremarkable. Reproductive organs: Patient is status post hysterectomy. Bowel: Patient is status post colonic resection. Lymph nodes Retroperitoneal: Unremarkable. Mesenteric: Unremarkable. Pelvic: Unremarkable. Peritoneum: Normal. Vessels: Unremarkable. Abdominal wall: Infraumbilical hernia is noted containing only fat. Postsurgical changes are seen in the midline. Bones: Posterior fixation hardware is seen in degenerative changes are seen. IMPRESSION: No evidence of nephrolithiasis or hydronephrosis. No acute abnormality is seen in particular no evide nce of bowel wall thickening to suggest active Crohn's disease. Postsurgical changes of colonic resec tion are seen. ACT 112: Negative or not required by law. Electronically signed by: Damon Harden M.D. 10/09/2021 3:08 PM
[2021-10-09 15:14] LABS: Influenza A virus by PCR Negative (Neg); Influenza B virus by PCR Negative (Neg); RSV by PCR Negative (Neg); SARS CoV2 RNA(COVID-19) InHosp NEGATIVE (Negative)
[2021-10-09] MEDS ORDERED: FUROSEMIDE 40 MG/4 ML VIAL IV ONE ×2 (16:36→23:00)
--- NOTE | 2021-10-09 18:02 | History & Physical Report ---
Date of Service October 09, 2021 Assessment & Plan (1) Edema of face: Plan: Overall edema of the body with round kaba face appearance - DDX at this time: Turton's syndrome vs. other endocrinopathy vs. obstructive thoracic outflow/SVC syndrome vs. nephrotic syndrome vs. cardiac - Will hold her oral budesonide as possible offending agent - Random and AM Cortisol - Spot urine/creatinine in the morning - Diurese again tonight with additional 40mg of IV Lasix - ECHO in am - Consider CT/MRI of the neck - Ultrasound of bilateral upper extremity- eval for congestion/outflow obstx - consider venogram of neck and chest pending the above - as she is with normal voice and minimal edema of the arms and hands (2) Lower extremity edema: Plan: As above - continue lasix tonight - rosas placed for JAVY and bladder scan prior to placement - CT abdomen and pelvis without mass or other pathology interpreted (3) DVT (deep venous thrombosis): Plan: Original right IJ 2001 - noted on her recent CTA of the chest - Continue her Xarelto- as above for further eval (4) Asthma: Plan: Chronic- well controlled on current therapy - Continue EARL - Continue symbicort - Hold oral budesonide (5) NINFA (obstructive sleep apnea): Plan: CPAP 11CM H20 with 2LNC - she voices compliance (6) Diabetes: Plan: Continue her 80 mg lantus BID Aspart sliding scale with CF 20 and carb ration 1:9 Goal <180 (7) Bipolar 1 disorder: Plan: Continue Lomotrigine Continue Lexapro (8) Back pain: Plan: Chronic with L5-S1 fusion- continue Tyelnol and her Hydrocodone - follow tylenol dosing max 3.5GM/24 hours (9) Hypercalcemia: Plan: Will send PTH- may be related to volume status will follow (10) Ulcerative colitis: Plan: She is on Stelara and budesonide - Hold budesonide as above - She received her Stelara last week History of Present Illness Primary Care Provider: Yousuf Garcia 45 YOF with medical history of: Chron's disease, DMII, IJ thrombus( chronic), bipolar, NINFA, Asthma, L5-S1 fusion with neuropathy, chronic pain. Patient PCP is Dr. Garcia in [place]. She receives most of her care at [facility]. Patient comes in to the EMD today for complaints of back pain and increase in swelling/edema to her face, chest, and legs- the patient was recently discharged from [facility] where she went for the above symptoms previously. While she was there she had MRI of spine performed, CTA of the chest, Ultrasound of her bilateral lower extremities, and ECHO done as well as diuresed with IV diuretics. She has all this on her phone and is viewable with her. 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 She felt better upon discharge and over the past few days she had an increase in the swelling of her face, lower extremities, as well as feeling like she can't void. She endorses that she feels the need to urinate but can not and voids one time per day with small amounts. She endorses that she does not eat allot of salt and did have her diuretic increased when she called her PCP over past few days with no resolution. In the EMD the patient had routine blood work done to include TSH, HScTNI, and BNP, UA and CT of the abdomen and pelvis completed. She was given pain medication in the form of IV morphine and 40mg IV Lasix for her edema. The hospitalist service was consulted for admission. Patient labs reviewed- negative HScTNI and BNP, mild hypercalcemia, hypomag, elevated LFT, and normal TSH. UA likely contaminant and trace protein without blood. Patient will be admitted on medical floor, continue to diurese and further workup her symptomatology and treatment plan. Overall the patient has increase in facial edema and chin edema over the past 6 months, she has insulin resistance on multiple agents, is on oral budesonide for her asthma that was recently started ~ 3 months prior. Her edema in her legs is soft pitting more so along her shins. ECHO reviewed from [facility] which was interpreted there as LV thickness with borderline LVH, dilated left atrium and elevated left atrial pressure, EF 60-65% and normal RV. Her duplex study was also negative for DVT. She has enlarged neck with difficult to palpate thyroid, and fatpad of the back of the neck. Don't at this time this is primarly cardiac in nature, however will obtain ECHO in morning for review by our staff and await test results. COVID and Influenza A/B test on admission is: NEGATIVE Allergies Allergy/AdvReac Type Severity Reaction Status Date / Time nickel Allergy Mild Skin Verified 10/09/21 15:34 irritation Home Medications Medication Instructions Recorded Confirmed Type pregabalin 150 mg capsule (Lyrica) 150 mg PO BID 10/30/18 10/09/21 History insulin aspart U-100 100 unit/mL 30 unit SUBCUT TIDM 01/14/20 10/09/21 History (3 mL) subcutaneous pen (Novolog Flexpen U-100 Insulin aspart) albuterol sulfate 90 mcg/actuation 2 puff INHALATION DIRECTED PRN 11/22/20 10/09/21 History aerosol inhaler ascorbic acid (vitamin C) 500 mg 500 mg PO QAM 11/22/20 10/09/21 History tablet (Vitamin C) atorvastatin 10 mg tablet 10 mg PO QAM 11/22/20 10/09/21 History budesonide 3 mg 3 mg PO QDL 11/22/20 10/09/21 History capsule,delayed,extended release escitalopram oxalate 20 mg tablet 20 mg PO QAM 11/22/20 10/09/21 History (Lexapro) hydrocodone 5 mg-acetaminophen 325 1 tab PO TID 11/22/20 10/09/21 History mg tablet lamotrigine 200 mg tablet 200 mg PO HS 11/22/20 10/09/21 History (Lamictal) multivitamin 1 tab PO QAM 11/22/20 10/09/21 History jymkkb-kcrcuino-[id number] 2 cap PO TIDM 01/13/21 10/09/21 History 36,000-114,000-180,000 unit capsule,delay rel (Creon) polysaccharide iron complex 150 mg 150 mg PO QAM 01/13/21 10/09/21 History iron capsule (iFerex 150) budesonide-formoterol HFA 160 2 puff INHALATION BID 03/07/21 10/09/21 History mcg-4.5 mcg/actuation aerosol inhaler (Symbicort) propranolol 10 mg tablet 10 mg PO BID 03/23/21 10/09/21 History ondansetron 4 mg disintegrating 4 mg PO Q6H PRN #14 tab 05/27/21 10/09/21 Rx tablet furosemide 40 mg tablet 40 mg PO DAILY 10/09/21 10/09/21 History insulin glargine 100 unit/mL (3 80 unit SUBCUT BID 10/09/21 10/09/21 History mL) subcutaneous pen (Lantus Solostar U-100 Insulin) rivaroxaban 20 mg tablet (Xarelto) 20 mg PO DAILY 10/09/21 10/09/21 History tiotropium bromide 18 mcg capsule 1 cap INHALATION DAILY 10/09/21 10/09/21 History with inhalation device (Spiriva with HandiHaler) ustekinumab 130 mg/26 mL 90 mg IV .Q8WK 10/09/21 10/09/21 History intravenous solution (Stelara) vitamin A 10,000 unit capsule 0 unit PO DAILY 10/09/21 10/09/21 History Past Med/Surg History Medical History (Updated 10/09/21 @ 18:29 by KEZIA Sullivan) Abnormal LFTs Asthma Back pain Bipolar 1 disorder Clostridium difficile infection Crohn disease Diabetes DVT (deep venous thrombosis) Hyperglycemia Left flank pain LLQ abdominal pain No pertinent family history NINFA (obstructive sleep apnea) 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 difficile Ulcerative colitis Surgical History History of colectomy Family History Other Family history non-contributory Social History Smoking Status: Former smoker Tobacco Type: Cigarettes Do You Dip or Chew Tobacco: No; Hx Alcohol Use: No Hx Substance Use: No Preferred Language: Bahamian Communication Ability: Effective Jira Administrator Required: No Beliefs That Will Affect Care: None Current Living Situation: Family Current Living Situation Comment: lives with daughter and two grandkids Other Information That Helps Us Care for You: No Feels Safe at Home: Yes Safety Concerns: Feels Safe At This Time Assistive Devices: CPAP and Oxygen - at Night Review of Systems Review of Systems: REVIEW OF SYSTEMS: Constitutional: No fever, sweats or chills Eyes: No diplopia, no worsening or blurred vision ENT: normal hearing, no trouble swallowing Respiratory: No cough, sputum, dyspnea at rest or on exertion Cardiovascular: (+) overall body edema, pressure, NO chest pain, tightness or palpitations Abdomen: No pain, nausea, vomiting, diarrhea or constipation Musculoskeletal: (+) chronic back/flank pain, Neurologic: No weakness, numbness/tingling, or balance problems Psychiatric: (+) bipolar Skin: No rash or itch Physical Exam Physical Exam: PHYSICAL EXAM: General: awake, alert, no apparent distress Head: round kaba face appearance, hump to back of neck, increase swelling of face and neck ENT: PERRL, EOMI, no pharyngeal exudate, mucous membranes moist Neuro: AAO x 3, speech clear and appropriate, strength intact bilaterally 5/5, sensation intact and equal all extremities and dermatomes, no pronator drift Chest: equal rise and fall of the chest, no accessory muscle use, no heaves or thrills, Clear to auscultation, on room air, Cardiac: Regular rate and rhythm, telemetry reviewed, skin warm dry, cap refill <3 seconds, peripheral pulses +2 no JVD, no murmur, edema to shoulders/face/lower extremity up to knee and hips, arm numbnesstngling with elevation of arm above head GI: NABS x 4 quadrants, soft, nontender to palpation, no rebound, guarding or tenderness : feeling of incomplete bladder emptying Psych: Normal mood and affect Skin: no rash or erythema Results & Data Results & Data ([facility]) Vital Signs (Past 12 Hours) Vital Signs Temp Pulse Pulse Resp BP BP Pulse Ox 10/09/21 15:00 89 18 151/82 H 95 10/09/21 13:30 88 20 174/82 H 95 10/09/21 13:17 88 96 10/09/21 12:42 36.4 C L 95 H 20 198/78 H 95 Laboratory Results Abnormal lab results 10/09/21 10/09/21 10/09/21 Range/Units 13:15 13:15 13:15 WBC 13.13 H (4.8-10.8) K/uL RDW Std Deviation 47.8 H (36.4-46.3) fL RDW Coeff of Anna 14.7 H (11.5-14.5) % Neut # (Auto) 8.75 H (1.4-6.5) K/uL [place] # (Auto) 1.16 H (0.11-0.59) K/uL Immature Gran # (Auto) 0.04 H (0.00-0.02) K/uL Glucose 227 H (70-99(Fasting)) mg/dl Calcium 10.5 H (8.5-10.1) mg/dl Total Bilirubin 1.2 H (0.2-1.0) mg/dl AST 62 H (13-39) U/L ALT 67 H (7-52) U/L Lipase 10 L (11-82) U/L Urine Appearance Turbid A (Clear) Urine Protein Trace H (Negative) Urine Ketones 1+ H (Negative) Ur Leukocyte Esterase Trace H (Negative) Urine WBC (Auto) 10-30 H (0-5) /hpf U Epithel Cells (Auto) >30 H (0-5) /lpf Urine Bacteria (Auto) 1+ H (Negative) Diagnostic Findings Abdomen/Pelvis CT 10/09/21 13:02 CT abd pelvis wo con CLINICAL HISTORY: flank pain, not urinating TECHNIQUE: Helical axial images of the abdomen and pelvis were obtained. Automated dose lowering techniques and/or adjustment according to patient size were utilized for this exam. This exam was performed without intravenous contrast. COMPARISON: Comparison is made to CT abdomen pelvis 05/27/2021 FINDINGS: Lower chest: Bibasilar atelectasis versus scarring is seen. Liver: Hepatic steatosis is noted. Gallbladder and biliary tree: Patient is status post cholecystectomy. No intra- or extrahepatic biliary ductal dilation. Pancreas: Unremarkable, no focal lesions. Spleen: Unremarkable. Adrenals: Unremarkable. Kidneys and ureters: Unremarkable. Bladder: Unremarkable. Reproductive organs: Patient is status post hysterectomy. Bowel: Patient is status post colonic resection. Lymph nodes Retroperitoneal: Unremarkable. Mesenteric: Unremarkable. Pelvic: Unremarkable. Peritoneum: Normal. Vessels: Unremarkable. Abdominal wall: Infraumbilical hernia is noted containing only fat. Postsurgical changes are seen in the midline. Bones: Posterior fixation hardware is seen in degenerative changes are seen. IMPRESSION: No evidence of nephrolithiasis or hydronephrosis. No acute abnormality is seen in particular no evidence of bowel wall thickening to suggest active Crohn's disease. Postsurgical changes of colonic resection are seen. ACT 112: Negative or not required by law. Electronically signed by: Damon Harden M.D. 10/09/2021 3:08 PM Chest X-Ray 10/09/21 13:03 XR chest 1V portable CLINICAL HISTORY: poss chf TECHNIQUE: Single frontal radiograph of the chest was obtained. Comparison: Comparison is made to chest one view 06/06/2021 FINDINGS: Exam is limited by underpenetration. The cardiomediastinal silhouette is stable. There is questionable blunting of the left costophrenic angle. No pneumothorax is seen, pleural effusions cannot be excluded. IMPRESSION: Blunting of the left costophrenic angle may represent small pleural effusion or atelectasis, pneumonia, and/or aspiration. Otherwise no acute abnormalities and in particular no evidence of CHF. ACT 112: Negative or not required by law. Electronically signed by: Damon Harden M.D. 10/09/2021 1:33 PM Medications Administered Abnormal lab results 10/09/21 10/09/21 10/09/21 Range/Units 13:15 13:15 13:15 WBC 13.13 H (4.8-10.8) K/uL RDW Std Deviation 47.8 H (36.4-46.3) fL RDW Coeff of Anna 14.7 H (11.5-14.5) % Neut # (Auto) 8.75 H (1.4-6.5) K/uL [place] # (Auto) 1.16 H (0.11-0.59) K/uL Immature Gran # (Auto) 0.04 H (0.00-0.02) K/uL Glucose 227 H (70-99(Fasting)) mg/dl Calcium 10.5 H (8.5-10.1) mg/dl Total Bilirubin 1.2 H (0.2-1.0) mg/dl AST 62 H (13-39) U/L ALT 67 H (7-52) U/L Lipase 10 L (11-82) U/L Urine Appearance Turbid A (Clear) Urine Protein Trace H (Negative) Urine Ketones 1+ H (Negative) Ur Leukocyte Esterase Trace H (Negative) Urine WBC (Auto) 10-30 H (0-5) /hpf U Epithel Cells (Auto) >30 H (0-5) /lpf Urine Bacteria (Auto) 1+ H (Negative) ECG Additional Comments: Normal sinus rhythm Normal ECG When compared with ECG of 27-MAY-2021 14:46, No significant change was found Code Status & VTE Plan Code Status CODE: FULL VTE: Lucio DEL RIO Supervising Physician Co-Signing Physician Notes I supervised KEZIA Alfaro on this admission. I interviewed and examined the patient independently of him. The plan is as written in his note except for any following changes/exceptions: None 45yo F w/ hx of Crohn's who presents for worsening swelling. She was recently at [facility] for the same. From her report, she was treated as HFpEF, diuresed (with resultant improvement in swelling), and discharged home. She was also found to have a right internal jugular DVT which appeared chronic as she had collateral flow. She was started on anticoagulation (Xarelto) and has been tolerating that well. I did review some of her labs/results from her hospitalization. No other clots found at that time. She was discharged on oral Lasix. However, she was only home for a few days, when she felt that her swelling had resumed/gone back to its prior levels. She notes it mostly in the arms/face, and on the back. Some in the legs. On exam, it is only slightly pitting, but present. This is a tough case with it being unclear what is causing the swelling. The distribution would point toward possible anatomic issue (thoracic outlet syndrome) vs. an endocrine disorder such as Turton's. Will get AM cortisol. Ultrasound of the upper extremities can be a first test to check for further thrombus in the upper extremities. Could consider CTV neck/chest if needed. Will hold budesonide for now as many of its side effects are symptoms she is experiencing. PG Care Time/CCT Total # of Minutes Spent Total Time Spent with Patient: Total time spent is greater than 50% in coordination of care (as documented) at patient's floor/unit and/or counseling patient: Coding Level of Care Code 68729 Initial Inpt Care Lvl 3 Diagnoses Edema of face R60.0 Lower extremity edema R60.0 DVT (deep venous thrombosis) I82.409 Asthma J45.909 NINFA (obstructive sleep apnea) G47.33 Diabetes E11.9 Bipolar 1 disorder F31.9 Back pain M54.9 Hypercalcemia E83.52 Ulcerative colitis K51.80 Digestive disease complication type: without complication Ulcerative colitis location: other ulcerative colitis (1) Ulcerative colitis Digestive disease complication type: without complication Ulcerative colitis location: other ulcerative colitis Qualified Code(s): K51.80 - Other ulcerative colitis without complications
[2021-10-09 19:02] LABS: INR 1.3 (0.9-1.1); Prothrombin Time 13.5 Seconds (9.0-12.0)
[2021-10-09] MEDS: MAGNESIUM SULFATE / D5W 1 GM/100 ML BAG IV SCH ×2 (19:06→23:12)
--- NOTE | 2021-10-09 20:55 | Ultrasound Report ---
US venous doppler UE BI CLINICAL HISTORY: clot in right IJ with swelling to face PROCEDURE: Right upper extremity real-time compression venous ultrasound with Duplex and Color Dopple r imaging. FINDINGS: Utilizing real-time ultrasonic imaging multiple real time high-resolution ultrasonic images of the de ep venous system were performed from the forearm through the subclavian vein including evaluation of the jugular vein. Compression real time ultrasonic imaging was performed in addition to color Dopple r imaging and duplex Doppler ultrasound with velocity spectral profile analysis. There is a nonocclusive thrombus in the distal right internal jugular vein. The right innominate and subclavian veins as well as the left subclavian vein are not well visualized, there may be diminutive or there may be a thrombus. The right axillary vein appears patent. No deep venous thrombus is seen in the remainder of the bilateral upper extremities. Impression: Nonocclusive thrombus in the distal right jugular vein. Diminutive size versus thrombus in the right innominate and bilateral subclavian veins. Otherwise no deep venous thrombi are seen in the bilateral extremities. ACT 112: Negative or not required by law. Electronically signed by: Damon Harden M.D. 10/09/2021 8:53 PM
[2021-10-09] MEDS ORDERED: CARBOHYDRATES FOR HYPOGLYCEMIA PO PRN (21:14)
[2021-10-09] MEDS ORDERED: GLUCOSE 10 TABS/TUBE PO PRN (21:14)
[2021-10-09] MEDS ORDERED: DEXTROSE 50% 50 ML SYRINGE IV PRN (21:14)
[2021-10-09] MEDS ORDERED: GLUCOSE 40% GEL 15 GM TUBE PO PRN (21:14)
[2021-10-09] MEDS ORDERED: GLUCAGON FOR INJ 1 MG VIAL SQ PRN (21:14)
[2021-10-09] MEDS ORDERED: ACETAMINOPHEN 325 MG TAB PO PRN (21:14)
[2021-10-09] MEDS ORDERED: ALBUTEROL HFA 8 GM INHALER INH PRN (21:14)
[2021-10-09] MEDS: HYDROCODONE/ACETAMOPHEN 5/325MG TAB PO SCH (21:34)
[2021-10-09] MEDS: INSULIN GLARGINE 100 UNIT/ML VIAL SQ SCH (21:58)
[2021-10-09] MEDS: INSULIN ASPART PER UNIT SC SCH (21:58)
[2021-10-09] MEDS: PROPRANOLOL HCL 10 MG TAB PO SCH (21:59)
[2021-10-09] MEDS: lamoTRIgine 100 MG TAB PO SCH (21:59)
[2021-10-09] MEDS: PREGABALIN 150 MG CAP PO SCH (21:59)
[2021-10-09] MEDS ORDERED: MoRPHine SULFATE 2 MG/ML CARP IV STA (22:20)
--- NOTE | 2021-10-09 22:53 | Communication Note ---
Date of Service: October 09, 2021 Messaged by nursing about left flank pain persisting despite [place] an hour ago. Assessed. Low lumbar ttp. Left posterior SI joint area ttp. Per patient, pain radiates down L leg. No paresthesias or saddle anethesia symptoms. She has hx of low back pains. Patient receiving 2mg IV morphine x 1 dose in addition to the above. ~330AM: Patient requesting morphine for pain. Ordered voltaren gel prn.
[2021-10-10] MEDS: MAGNESIUM SULFATE / D5W 1 GM/100 ML BAG IV SCH (01:24)
[2021-10-10] MEDS ORDERED: DICLOFENAC SOD 1% GEL 100 GM TUBE EXT PRN (03:35)
[2021-10-10 07:25] LABS: Creatinine Urine Random 98.8 mg/dl; Protein Creatinine Ratio Urine 0.1 (0-0.2)
--- NOTE | 2021-10-10 07:59 | Hospitalist Progress Note ---
Date of Service October 10, 2021 Assessment & Plan (1) Edema of face: Plan: Overall edema of the body with round kaba face appearance. Recently hospitalized at [facility] for HFpEF and diuresis undertaken, swelling improved. D/c home and home for couple of days prior to swelling increasing --> ALso, recently started on Stelara for her Crohns, approximately 2 weeks ago She had been given prednisone taper for Crohns flare in July from this hospital, denies any other use of steroids, but had been placed on budesonide by her primary care 3 months ago for her asthma Holding PO budesonide as likely offending agent Random and AM cortisol without significant abn Urine cr acceptable, elevated total protein random urine Given lasix 40mg IV lasix x 2, will order 20mg IV today given improvement in swelling (had been discharged on 40mg PO lasix after d/c [facility]) UOP acceptable, 0.67ml/kg/hr ECHO with LV systolic function normal, normal diastolic function. RVSP normal TSH wnl Doppler UE -- Nonocclusive thrombus in the distal right jugular vein. Diminutive size versus thrombus in the right innominate and bilateral subclavian veins. Otherwise no deep venous thrombi are seen in the bilateral extremities. Consider check venogram neck, but reported improvement of swelling Remains on Xarelto Monitor/?need for further imaging neck/head if continued issues after diuresis Rec'd CHF clinic follow up/low salt diet/daily weight monitoring (2) Hypercalcemia: Plan: Ca 10.5 on admission PTH wnl, checked Vit D level -- low at 28 Diuretics as above, repeat Ca 9.4 (albumin 4.0) ?primary hyperparathryoidism, ?need for f/u endocrinology at discharge monitor in am (3) Lower extremity edema: Plan: As above Lasix 40mg IV x 2 given, continue usual dose (given 20mg IV lasix today, plans to resume 40mg PO in AM) Neal placed in ER - CT abdomen and pelvis without mass or other pathology interpreted (4) DVT (deep venous thrombosis): Plan: Original right IJ 2001 - noted on her recent CTA of the chest - Continue her Xarelto- as above for further eval (5) Asthma: Plan: Chronic- well controlled on current therapy - Continue EARL - Continue symbicort - Hold oral budesonide given swelling. Breathing stable (6) NINFA (obstructive sleep apnea): Plan: CPAP 11CM H20 with 2LNC - she voices compliance Ordered for HS (7) Diabetes: Plan: Continue her 80 mg lantus BID Aspart sliding scale with CF 20 and carb ration 1:9 Goal <180 (8) Bipolar 1 disorder: Plan: Continue Lomotrigine Continue Lexapro (9) Back pain: Plan: Chronic with L5-S1 fusion- continue Tyelnol and her Hydrocodone - follow tylenol dosing max 3.5GM/24 hours Recently with increased L low back pain and symptoms suggesting worsening of chronic back issues. Discussed obtaining imaging, she actually had repeat imaging of thoracic/lumbar spine at [facility] which indicated impingement of exiting nerve roots and central canal stenosis at L4/L5/S1 regiong. --> She states her spine surgeon in [place] had office call to set up appointment for follow up care regarding these findings. No need to repeat further imaging while inpatient, additional morphine available as needed for breakthrough (10) Ulcerative colitis: Plan: She is on Stelara and budesonide - Hold budesonide as above - She received her Stelara last week, recently started this medication 2 weeks ago (previously on Humira in past) F/u GI at d/c -- of note, she stated always issues with diarrhea and was given opiates in past to slow this, but hasn't been on in some time Plan: continued inpatient stay Admission and Anticipated Discharge Date Admission Date: October 09, 2021 Subjective Patient evaluated this afternoon. Doing better. States leg swelling. Yesterday were able to press finger and leave indent, today much improved. States not much added salt to diet and her daughters do most of the cooking. Neal with concentrated yellow urine draining. Discussed pain, requiring percocet. States pain to L lower back with radiation around groin and into leg with associated numbness/tingling. Discussed prior CT of back with bulging disc and inquiring of worsening. She notes she had imaging at [facility], and her spine surgeon had office call to state to schedule appointment to see what best plan of action would be. Discussed given symptoms/distribution would suspect related to back. UE swelling also decreased. She states her swelling was getting a little better at [facility] at discharge and then slowly started to increase again. Worse swelling when up/outside and having legs dependent. States she does have compression stockings at home. Hx DM and states sugars much improved recently at home. She does endorse a little bit of memory fog at times. Discussed elevated Ca and further testing to be performed. No fever, chills, chest pain. Did have some shortness of breath when up/ambulating yesterday but states this is improved today. +BM about 30 minutes ago. Denies n/v at this time. Of note, she states had been on Humira in past for Crohns, recent prednisone taper from ER in Jul for flare up. States does not get often, but deals with diarrhea frequently. --> She notes she had recently started Stelara approximately 2 weeks ago and is to give herself injections in 8 weeks. She does note the swelling had been increased prior to starting this, but again could have been from recent steroid taper and then could still have reaction to medications. She notes after d/c had been slowly increasing in swelling. Questions/concerns addressed. Review of Systems Review of Systems: All systems reviewed & are unremarkable except as noted in HPI & below Physical Exam Physical Exam: General: WD/WN obese female, older appearing than stated age, NAD, sitting up in bed Eyes: anicteric, pupils equal/reactive to light ENT: mmm, trachea midline without deviation, thickened neck, no appreciable thyromegaly Resp: CTAB, diminished in the bases, no wheezing/crackles, on room air CV: RRR, no m/r/g, no calf tenderness, no JVD, slight non-pitting edema to face/shoulders/arms, trace pitting edema b/l LE GI: +BS, soft, non-tender MSK/Neuro: +L straight leg raise, NO CVA tenderness, decreased strength plantar/dorsiflexion on the left compared to the right, pulses palpable and sensation slightly decreased to light touch : yellow urine in neal bag Psych: alert, oriented to person/place/time, cooperative and pleasant Results & Data Results & Data ([facility]) Vital Signs (Past 12 Hours) Vital Signs Temp Pulse Pulse Resp BP Pulse Ox 10/10/21 07:31 36.5 C 76 18 126/79 95 10/10/21 03:23 15 96 10/10/21 01:03 86 15 96 10/09/21 21:00 36.7 C 89 16 148/86 H 94 Laboratory Results 10/10/21 10/10/21 10/10/21 Range/Units 12:14 10:01 10:01 WBC (4.8-10.8) K/uL RBC (4.2-5.4) M/uL Hgb (12.0-16.0) g/dL Hct (37-47) % MCV (80-100) fL MCH (25-34) pg MCHC (32-36) g/dL RDW Std Deviation (36.4-46.3) fL RDW Coeff of Anna (11.5-14.5) % Plt Count (130-400) K/uL MPV (7.4-10.4) fL Immature Gran % (Auto) % Neut % (Auto) % Lymph % (Auto) % [place] % (Auto) % Eos % (Auto) % Baso % (Auto) % Neut # (Auto) (1.4-6.5) K/uL Lymph # (Auto) (1.2-3.4) K/uL [place] # (Auto) (0.11-0.59) K/uL Eos # (Auto) (0-0.5) K/uL Baso # (Auto) (0-0.2) K/uL Immature Gran # (Auto) (0.00-0.02) K/uL PT (9.0-12.0) Seconds INR (0.9-1.1) Sodium (136-145) mmol/L Potassium (3.5-5.1) mmol/L Chloride (98-107) mmol/L Carbon Dioxide (21-32) mmol/L Anion Gap (3-11) BUN (6-23) mg/dl Creatinine (0.6-1.2) mg/dl Est Cr Clr Drug Dosing ml/min Est GFR ( Amer) ml/min Est GFR (Non-Af Amer) ml/min BUN/Creatinine Ratio (10-20) Glucose (70-99(Fasting)) mg/dl POC Glucose 179 H (70-99) mg/dl Calcium (8.5-10.1) mg/dl Magnesium (1.7-2.4) mg/dl Total Bilirubin (0.2-1.0) mg/dl Direct Bilirubin (0-0.2) mg/dl AST (13-39) U/L ALT (7-52) U/L Alkaline Phosphatase (34-104) U/L Total Protein (6.0-8.3) gm/dl Albumin (3.4-5.0) gm/dl 25-OH Vitamin D Total 28.0 L PTH Intact (12.0-88.0) pg/ml Random Cortisol mcg/dl Cortisol AM Sample (6.2-22.6) mcg/dl Ur Random Creatinine mg/dl U Random Total Protein (0-11.9) mg/dl Protein/Creatinin Ratio (0-0.2) Hepatitis A IgM Ab Pending Hep Bs Antigen Pending Hep Bs Ag Confirmation Pending Hep B Core IgM Ab Pending Hepatitis C Ab (EIA) Pending Hep C Ab Signal/Cutoff Pending 10/10/21 10/10/21 10/10/21 Range/Units 08:14 08:04 07:57 WBC (4.8-10.8) K/uL RBC (4.2-5.4) M/uL Hgb (12.0-16.0) g/dL Hct (37-47) % MCV (80-100) fL MCH (25-34) pg MCHC (32-36) g/dL RDW Std Deviation (36.4-46.3) fL RDW Coeff of Anna (11.5-14.5) % Plt Count (130-400) K/uL MPV (7.4-10.4) fL Immature Gran % (Auto) % Neut % (Auto) % Lymph % (Auto) % [place] % (Auto) % Eos % (Auto) % Baso % (Auto) % Neut # (Auto) (1.4-6.5) K/uL Lymph # (Auto) (1.2-3.4) K/uL [place] # (Auto) (0.11-0.59) K/uL Eos # (Auto) (0-0.5) K/uL Baso # (Auto) (0-0.2) K/uL Immature Gran # (Auto) (0.00-0.02) K/uL PT (9.0-12.0) Seconds INR (0.9-1.1) Sodium (136-145) mmol/L Potassium (3.5-5.1) mmol/L Chloride (98-107) mmol/L Carbon Dioxide (21-32) mmol/L Anion Gap (3-11) BUN (6-23) mg/dl Creatinine (0.6-1.2) mg/dl Est Cr Clr Drug Dosing ml/min Est GFR ( Amer) ml/min Est GFR (Non-Af Amer) ml/min BUN/Creatinine Ratio (10-20) Glucose (70-99(Fasting)) mg/dl POC Glucose 154 H (70-99) mg/dl Calcium (8.5-10.1) mg/dl Magnesium (1.7-2.4) mg/dl Total Bilirubin 1.4 H (0.2-1.0) mg/dl Direct Bilirubin 0.1 (0-0.2) mg/dl AST 63 H (13-39) U/L ALT 71 H (7-52) U/L Alkaline Phosphatase 100 (34-104) U/L Total Protein 7.2 (6.0-8.3) gm/dl Albumin 4.0 (3.4-5.0) gm/dl 25-OH Vitamin D Total Cancelled PTH Intact (12.0-88.0) pg/ml Random Cortisol mcg/dl Cortisol AM Sample (6.2-22.6) mcg/dl Ur Random Creatinine mg/dl U Random Total Protein (0-11.9) mg/dl Protein/Creatinin Ratio (0-0.2) Hepatitis A IgM Ab Hep Bs Antigen Hep Bs Ag Confirmation Hep B Core IgM Ab Hepatitis C Ab (EIA) Hep C Ab Signal/Cutoff 10/10/21 10/10/21 10/10/21 Range/Units 07:57 07:57 07:57 WBC 11.83 H (4.8-10.8) K/uL RBC 4.72 (4.2-5.4) M/uL Hgb 14.0 (12.0-16.0) g/dL Hct 41.7 (37-47) % MCV 88.3 (80-100) fL MCH 29.7 (25-34) pg MCHC 33.6 (32-36) g/dL RDW Std Deviation 47.9 H (36.4-46.3) fL RDW Coeff of Anna 14.9 H (11.5-14.5) % Plt Count 184 (130-400) K/uL MPV 8.8 (7.4-10.4) fL Immature Gran % (Auto) 0.3 % Neut % (Auto) 59.2 % Lymph % (Auto) 26.6 % [place] % (Auto) 12.2 % Eos % (Auto) 1.6 % Baso % (Auto) 0.1 % Neut # (Auto) 7.00 H (1.4-6.5) K/uL Lymph # (Auto) 3.15 (1.2-3.4) K/uL Oxford # (Auto) 1.44 H (0.11-0.59) K/uL Eos # (Auto) 0.19 (0-0.5) K/uL Baso # (Auto) 0.01 (0-0.2) K/uL Immature Gran # (Auto) 0.04 H (0.00-0.02) K/uL PT (9.0-12.0) Seconds INR (0.9-1.1) Sodium 137 (136-145) mmol/L Potassium 3.8 (3.5-5.1) mmol/L Chloride 99 (98-107) mmol/L Carbon Dioxide 27 (21-32) mmol/L Anion Gap 11 (3-11) BUN 24 H (6-23) mg/dl Creatinine 0.80 (0.6-1.2) mg/dl Est Cr Clr Drug Dosing 104.0 ml/min Est GFR ( Amer) 102.5 ml/min Est GFR (Non-Af Amer) 88.4 ml/min BUN/Creatinine Ratio 30.0 H (10-20) Glucose 148 H (70-99(Fasting)) mg/dl POC Glucose (70-99) mg/dl Calcium 9.4 (8.5-10.1) mg/dl Magnesium 2.3 (1.7-2.4) mg/dl Total Bilirubin (0.2-1.0) mg/dl Direct Bilirubin (0-0.2) mg/dl AST (13-39) U/L ALT (7-52) U/L Alkaline Phosphatase (34-104) U/L Total Protein (6.0-8.3) gm/dl Albumin (3.4-5.0) gm/dl 25-OH Vitamin D Total PTH Intact (12.0-88.0) pg/ml Random Cortisol mcg/dl Cortisol AM Sample 9.88 (6.2-22.6) mcg/dl Ur Random Creatinine mg/dl U Random Total Protein (0-11.9) mg/dl Protein/Creatinin Ratio (0-0.2) Hepatitis A IgM Ab Hep Bs Antigen Hep Bs Ag Confirmation Hep B Core IgM Ab Hepatitis C Ab (EIA) Hep C Ab Signal/Cutoff 10/10/21 10/09/21 10/09/21 Range/Units 06:15 21:30 21:14 WBC (4.8-10.8) K/uL RBC (4.2-5.4) M/uL Hgb (12.0-16.0) g/dL Hct (37-47) % MCV (80-100) fL MCH (25-34) pg MCHC (32-36) g/dL RDW Std Deviation (36.4-46.3) fL RDW Coeff of Anna (11.5-14.5) % Plt Count (130-400) K/uL MPV (7.4-10.4) fL Immature Gran % (Auto) % Neut % (Auto) % Lymph % (Auto) % [place] % (Auto) % Eos % (Auto) % Baso % (Auto) % Neut # (Auto) (1.4-6.5) K/uL Lymph # (Auto) (1.2-3.4) K/uL [place] # (Auto) (0.11-0.59) K/uL Eos # (Auto) (0-0.5) K/uL Baso # (Auto) (0-0.2) K/uL Immature Gran # (Auto) (0.00-0.02) K/uL PT (9.0-12.0) Seconds INR (0.9-1.1) Sodium (136-145) mmol/L Potassium (3.5-5.1) mmol/L Chloride (98-107) mmol/L Carbon Dioxide (21-32) mmol/L Anion Gap (3-11) BUN (6-23) mg/dl Creatinine (0.6-1.2) mg/dl Est Cr Clr Drug Dosing ml/min Est GFR ( Amer) ml/min Est GFR (Non-Af Amer) ml/min BUN/Creatinine Ratio (10-20) Glucose (70-99(Fasting)) mg/dl POC Glucose 182 H (70-99) mg/dl Calcium (8.5-10.1) mg/dl Magnesium (1.7-2.4) mg/dl Total Bilirubin (0.2-1.0) mg/dl Direct Bilirubin (0-0.2) mg/dl AST (13-39) U/L ALT (7-52) U/L Alkaline Phosphatase (34-104) U/L Total Protein (6.0-8.3) gm/dl Albumin (3.4-5.0) gm/dl 25-OH Vitamin D Total PTH Intact 30.7 (12.0-88.0) pg/ml Random Cortisol mcg/dl Cortisol AM Sample (6.2-22.6) mcg/dl Ur Random Creatinine 98.8 mg/dl U Random Total Protein 12.0 H (0-11.9) mg/dl Protein/Creatinin Ratio 0.1 (0-0.2) Hepatitis A IgM Ab Hep Bs Antigen Hep Bs Ag Confirmation Hep B Core IgM Ab Hepatitis C Ab (EIA) Hep C Ab Signal/Cutoff 10/09/21 10/09/21 Range/Units 18:33 17:55 WBC (4.8-10.8) K/uL RBC (4.2-5.4) M/uL Hgb (12.0-16.0) g/dL Hct (37-47) % MCV (80-100) fL MCH (25-34) pg MCHC (32-36) g/dL RDW Std Deviation (36.4-46.3) fL RDW Coeff of Anna (11.5-14.5) % Plt Count (130-400) K/uL MPV (7.4-10.4) fL Immature Gran % (Auto) % Neut % (Auto) % Lymph % (Auto) % [place] % (Auto) % Eos % (Auto) % Baso % (Auto) % Neut # (Auto) (1.4-6.5) K/uL Lymph # (Auto) (1.2-3.4) K/uL [place] # (Auto) (0.11-0.59) K/uL Eos # (Auto) (0-0.5) K/uL Baso # (Auto) (0-0.2) K/uL Immature Gran # (Auto) (0.00-0.02) K/uL PT 13.5 H (9.0-12.0) Seconds INR 1.3 H (0.9-1.1) Sodium (136-145) mmol/L Potassium (3.5-5.1) mmol/L Chloride (98-107) mmol/L Carbon Dioxide (21-32) mmol/L Anion Gap (3-11) BUN (6-23) mg/dl Creatinine (0.6-1.2) mg/dl Est Cr Clr Drug Dosing ml/min Est GFR ( Amer) ml/min Est GFR (Non-Af Amer) ml/min BUN/Creatinine Ratio (10-20) Glucose (70-99(Fasting)) mg/dl POC Glucose (70-99) mg/dl Calcium (8.5-10.1) mg/dl Magnesium (1.7-2.4) mg/dl Total Bilirubin (0.2-1.0) mg/dl Direct Bilirubin (0-0.2) mg/dl AST (13-39) U/L ALT (7-52) U/L Alkaline Phosphatase (34-104) U/L Total Protein (6.0-8.3) gm/dl Albumin (3.4-5.0) gm/dl 25-OH Vitamin D Total PTH Intact (12.0-88.0) pg/ml Random Cortisol 1.38 mcg/dl Cortisol AM Sample (6.2-22.6) mcg/dl Ur Random Creatinine mg/dl U Random Total Protein (0-11.9) mg/dl Protein/Creatinin Ratio (0-0.2) Hepatitis A IgM Ab Hep Bs Antigen Hep Bs Ag Confirmation Hep B Core IgM Ab Hepatitis C Ab (EIA) Hep C Ab Signal/Cutoff Diagnostic Findings Venous Doppler Study 10/09/21 18:52 US venous doppler UE BI CLINICAL HISTORY: clot in right IJ with swelling to face PROCEDURE: Right upper extremity real-time compression venous ultrasound with Duplex and Color Doppler imaging. FINDINGS: Utilizing real-time ultrasonic imaging multiple real time high-resolution ultrasonic images of the deep venous system were performed from the forearm through the subclavian vein including evaluation of the jugular vein. Compression real time ultrasonic imaging was performed in addition to color Doppler imaging and duplex Doppler ultrasound with velocity spectral profile analysis. There is a nonocclusive thrombus in the distal right internal jugular vein. The right innominate and subclavian veins as well as the left subclavian vein are not well visualized, there may be diminutive or there may be a thrombus. The right axillary vein appears patent. No deep venous thrombus is seen in the remainder of the bilateral upper extremities. Impression: Nonocclusive thrombus in the distal right jugular vein. Diminutive size versus thrombus in the right innominate and bilateral subclavian veins. Otherwise no deep venous thrombi are seen in the bilateral extremities. ACT 112: Negative or not required by law. Electronically signed by: Damon Harden M.D. 10/09/2021 8:53 PM PG Care Time/CCT Total # of Minutes Spent Total Time Spent with Patient: Total time spent is greater than 50% in coordination of care (as documented) at patient's floor/unit and/or counseling patient: Coding Level of Care Code 45463 Subseq Hosp Care Lvl 3 Diagnoses Edema of face R60.0 Lower extremity edema R60.0 DVT (deep venous thrombosis) I82.409 Asthma J45.909 NINFA (obstructive sleep apnea) G47.33 Diabetes E11.9 Bipolar 1 disorder F31.9 Back pain M54.9 Hypercalcemia E83.52 Ulcerative colitis K51.80 Digestive disease complication type: without complication Ulcerative colitis location: other ulcerative colitis (1) Ulcerative colitis Digestive disease complication type: without complication Ulcerative colitis location: other ulcerative colitis Qualified Code(s): K51.80 - Other ulcerative colitis without complications
[2021-10-10 08:17] LABS: Basophils # (auto) 0.01 K/uL (0-0.2); Basophils % (auto) 0.1 %; Eosinophils # (auto) 0.19 K/uL (0-0.5); Eosinophils % (auto) 1.6 %; Hematocrit (blood only) 41.7 % (37-47); Immature Granulocytes # (auto) 0.04 K/uL (0.00-0.02); Immature Granulocytes % (auto) 0.3 %; Lymphocytes # (auto) 3.15 K/uL (1.2-3.4); Lymphocytes % (auto) 26.6 %; Mean Corpuscular Hemoglobin 29.7 pg (25-34); Mean Corpuscular Hgb Conc 33.6 g/dL (32-36); Mean Corpuscular Volume 88.3 fL (80-100); Mean Platelet Volume 8.8 fL (7.4-10.4); Monocytes # (auto) 1.44 K/uL (0.11-0.59); Monocytes % (auto) 12.2 %; Neutrophils % (auto) 59.2 %; Platelet Count 184 K/uL (130-400); RDW Coefficient of Variation 14.9 % (11.5-14.5); RDW Standard Deviation 47.9 fL (36.4-46.3); Red Blood Count 4.72 M/uL (4.2-5.4); White Blood Count 11.83 K/uL (4.8-10.8)
[2021-10-10 08:58] LABS: Calcium 9.4 mg/dl (8.5-10.1); Est GFR (African American) 102.5 ml/min; Est GFR (Non-African American) 88.4 ml/min; Magnesium 2.3 mg/dl (1.7-2.4); Potassium 3.8 mmol/L (3.5-5.1)
[2021-10-10 08:59] LABS: Bilirubin Direct 0.1 mg/dl (0-0.2); Bilirubin,Total 1.4 mg/dl (0.2-1.0); Total Protein 7.2 gm/dl (6.0-8.3)
[2021-10-10] MEDS ORDERED: ATORVASTATIN 10 MG TAB PO SCH (09:00)
[2021-10-10] MEDS: HYDROCODONE/ACETAMOPHEN 5/325MG TAB PO SCH ×3 (09:26→21:28)
[2021-10-10] MEDS: PREGABALIN 150 MG CAP PO SCH ×2 (09:26→21:27)
[2021-10-10] MEDS: INSULIN ASPART PER UNIT SC SCH ×4 (09:30→21:25)
[2021-10-10] MEDS: RIVAROXABAN 20 MG TAB PO SCH (09:35)
[2021-10-10] MEDS: PROPRANOLOL HCL 10 MG TAB PO SCH ×2 (09:35→21:31)
[2021-10-10] MEDS: INSULIN GLARGINE 100 UNIT/ML VIAL SQ SCH ×2 (09:36→21:26)
[2021-10-10] MEDS: ESCITALOPRAM OXALATE 20 MG TAB PO SCH (09:36)
[2021-10-10] MEDS: PANCREAZE (LIPASE 10,500U) CAP PO SCH ×3 (09:36→17:12)
[2021-10-10] MEDS: UMECLIDINIUM BROMIDE 62.5MCG/BLISTER 7 PUFFS/INHALER INH SCH (11:20)
[2021-10-10] MEDS: FLUTICASONE/VILANTEROL 200/25MCG 14 PUFFS/INHALER INH SCH (11:20)
--- NOTE | 2021-10-10 11:20 | XCELERA ---
[id number]
[2021-10-10] MEDS ORDERED: MoRPHine SULFATE 2 MG/ML CARP IV STA (12:31)
[2021-10-10] MEDS ORDERED: FUROSEMIDE INJ 20 MG/2 ML VIAL IV ONE (13:16)
--- NOTE | 2021-10-10 17:55 | Electrocardiogram Report ---
Test Reason : Blood Pressure : / mmHG Vent. Rate : 082 BPM Atrial Rate : 082 BPM P-R Int : 170 ms QRS Dur : 090 ms QT Int : 366 ms P-R-T Axes : 073 067 049 degrees QTc Int : 427 ms Poor data quality, interpretation may be adversely affected Normal sinus rhythm Normal ECG When compared with ECG of 27-MAY-2021 14:46, No significant change was found Confirmed by Bernardo Samson ([id number]) on 10/10/2021 5:55:45 PM Referred By: REFERRED SELF Confirmed By:Luc Samson
[2021-10-10] MEDS: HYDROCODONE/ACETAMOPHEN 5/325MG TAB PO PRN (18:37)
[2021-10-10] MEDS ORDERED: ACETAMINOPHEN SUSP 325 MG/10.15 ML UDC PO STA (21:21)
[2021-10-10] MEDS: lamoTRIgine 100 MG TAB PO SCH (21:27)
--- NOTE | 2021-10-10 22:30 | Communication Note ---
Date of Service: October 10, 2021 Dayteam to revisit pain regimen orders. Patient has norco TID as well as q6h prn. Nursing has difficulty following this schedule because the q6h conflicts with the TID. Also, patient is complaining of insufficient relief. Consider removing prn tylenol order if already receiving norco. Patient stated that the prn norco did not relieve her pain, but the IV morphine did. Patient is declining now dose of Tylenol. Considered other alternatives. Cannot use toradol in setting of ulcerative colitis. I am not switching to another narcotic such as oxycodone or tramadol overnight. Per dominiqueteam's note, morphine for breakthrough pain. Assessed and spoke with patient. Will not be ordering morphine dose at this time.
[2021-10-11] MEDS: HYDROCODONE/ACETAMOPHEN 5/325MG TAB PO PRN (00:40)
[2021-10-11 06:23] LABS: Basophils # (auto) 0.02 K/uL (0-0.2); Basophils % (auto) 0.2 %; Eosinophils # (auto) 0.19 K/uL (0-0.5); Hematocrit (blood only) 40.3 % (37-47); Hemoglobin 13.9 g/dL (12.0-16.0); Immature Granulocytes # (auto) 0.02 K/uL (0.00-0.02); Immature Granulocytes % (auto) 0.2 %; Lymphocytes # (auto) 3.13 K/uL (1.2-3.4); Lymphocytes % (auto) 33.5 %; Mean Corpuscular Hemoglobin 30.2 pg (25-34); Mean Corpuscular Hgb Conc 34.5 g/dL (32-36); Mean Corpuscular Volume 87.6 fL (80-100); Mean Platelet Volume 8.8 fL (7.4-10.4); Monocytes # (auto) 0.98 K/uL (0.11-0.59); Monocytes % (auto) 10.5 %; Neutrophils % (auto) 53.6 %; Platelet Count 143 K/uL (130-400); RDW Coefficient of Variation 14.6 % (11.5-14.5); RDW Standard Deviation 46.9 fL (36.4-46.3); White Blood Count 9.34 K/uL (4.8-10.8)
[2021-10-11 06:30] LABS: HBSAG NON-REACTIVE (NON-REACTIVE); Hepatitis A Antibody IgM NON-REACTIVE (NON-REACTIVE); Hepatitis B Core Antibody IgM NON-REACTIVE (NON-REACTIVE)
[2021-10-11 06:48] LABS: BUN Creatinine Ratio 30.8 (10-20); Calcium 9.3 mg/dl (8.5-10.1); Creatinine Clr Calc Pharmacy 106.7 ml/min; Est GFR (African American) 105.7 ml/min; Est GFR (Non-African American) 91.2 ml/min; Potassium 3.6 mmol/L (3.5-5.1)
--- NOTE | 2021-10-11 08:26 | Hospitalist Progress Note ---
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, but ACTH level sent Recently hospitalized at [facility] edema/back/leg pain which improved, then was discharged and started swelling --> Given lasix by her PCP for swelling with improvement but then returned again --> ALso, recently started on Stelara for her Crohns, approximately 2 weeks ago She had been given prednisone taper for Crohns flare in July from this hospital, denies any other use of steroids, but had been placed on budesonide by her primary care 3 months ago for her asthma which is likely contributing Hold PO budesonide, as likely offending agent Random and AM cortisol without significant abn Urine cr acceptable, elevated total protein random urine. Not c/w nephrotic syndrome ECHO with LV systolic function normal, normal diastolic function. RVSP normal TSH wnl Given lasix 40mg IV lasix x 2 on admission, repeat 20mg IV 10/11 and scheduled 40mg PO moving forward --> Edema improved to LE but still present UE Wt decreased 112kg Venous Doppler UE * -- Nonocclusive thrombus in the distal right jugular vein. Diminutive size versus thrombus in the right innominate and bilateral subclavian veins. Otherwise no deep venous thrombi are seen in the bilateral extremities. * Consider check venogram neck, but reported improvement of swelling 10/10 but now increased swelling again and will order Remains on Xarelto Rec'd CHF clinic follow up/low salt diet/daily weight monitoring Per nephro, can consider 24hr urine for cr and Na and rec low salt diet * Can consider switching from furosemide to Bumex 1mg daily for better absorption/bioavailability. Consider transitioning tomorrow Also reported headache for past four months along with associated blurry vision and reported never had imaging of brain --> Will check CT head, as well as venogram chest to eval for increased UE swelling (2) Hypercalcemia: Plan: Ca 10.5 on admission PTH wnl, checked Vit D level -- low at 28 Diuretics as above, repeat Ca 9.3 (albumin 4.0) ?primary hyperparathyroidism, ?need for f/u endocrinology at discharge for possible sergio syndrome as well monitor in am (3) Lower extremity edema: Plan: As above Lasix 40mg IV x 2 given, continue usual dose (given 20mg IV lasix 10/10, resumed 40mg PO daily) D/c'd rosas as placed in ER CTAP without mass/other pathology (4) DVT (deep venous thrombosis): Plan: Original right IJ 2001 - noted on her recent CTA of the chest - Continue her Xarelto- as above for further eval (5) Asthma: Plan: Chronic- well controlled on current therapy - Continue EARL - Continue symbicort - Hold oral budesonide given swelling. Breathing stable 94% onRA (6) NINFA (obstructive sleep apnea): Plan: CPAP 11CM H20 with 2LNC - she voices compliance Ordered for HS, and has utilized (7) Diabetes: Plan: Continue her 80 mg lantus BID Aspart sliding scale with CF 20 and carb ration 1:9 Goal <180 BSGs acceptable (8) Bipolar 1 disorder: Plan: Continue Lomotrigine, lexapro (9) Back pain: Plan: Chronic with L5-S1 fusion Recently with increased L low back pain and symptoms suggesting worsening of chronic back issues. Discussed obtaining imaging, she actually had repeat imaging of thoracic/lumbar spine at [facility] which indicated impingement of exiting nerve roots and central canal stenosis at L4/L5/S1 regiong. --> She states her spine surgeon in [place] had office call to set up appointment for follow up care regarding these findings. Given morphine IV 10/10, seems to be more comfortable today with less edema to LE/sacrum --> discussed can try increasing her lyrica to TID dosing and would avoid IV narcotics if possible. --> agreeable, increased to 150mg TID Hydrocodone available as taking at home UA negative for infection/UTI (10) Ulcerative colitis: Plan: She is on Stelara and budesonide - Hold budesonide as above - She received her Stelara last week, recently started this medication 2 weeks ago (previously on Humira in past) F/u GI at d/c -- of note, she stated always issues with diarrhea and was given opiates in past to slow this, but hasn't been on in some time (11) Morbid obesity: Plan: continued inpatient stay Admission and Anticipated Discharge Date Admission Date: October 09, 2021 Subjective paatient eval this afternoon LE edema improved, some increase to back of neck Breathing stable eating/drinking no issue, moving bowels pain controlled, slight improvement with lidocaine patch. agreeable to try increase lyrica to TID to see if improvement of neuropathy symptoms. Of note, had been complaining of funny feeling in head/blurry/double vision x 4 months. Denies any hx of imaging of her brain. associated dizziness at times. does also feel like cutting off circulation to her face when lifting her right arm above her head at times but denied numbness/tingling or pain when lifting arm above her head. Discussed d/c steroids and wouldn't resume. Has f/u GI for repeat Stelara. Review of Systems Review of Systems: All systems reviewed & are unremarkable except as noted in HPI & below Physical Exam Physical Exam: General: WD/WN obese female, older appearing than stated age, NAD, sitting up at side of the bed Eyes: anicteric, pupils equal/reactive to light ENT: mmm, trachea midline without deviation, thickened neck, no appreciable thyromegaly, buffalo hump, acanthosis nigricans appearance to neck Resp: CTAB, diminished in the bases, no wheezing/crackles, on room air CV: RRR, no m/r/g, no calf tenderness, no JVD, slight non-pitting edema to face/shoulders/arms, trace pitting edema b/l LE, LE edema RESOLVED GI: +BS, soft, non-tender MSK/Neuro: +L straight leg raise, NO CVA tenderness, decreased strength plantar/dorsiflexion on the left compared to the right, pulses palpable and sensation slightly decreased to light touch : NO ROSAS Psych: alert, oriented to person/place/time, cooperative and pleasant Results & Data Results & Data ([facility]) Vital Signs (Past 12 Hours) Vital Signs Temp Pulse Pulse Pulse Resp BP Pulse Ox 10/11/21 07:27 36.6 C 74 20 146/84 H 94 10/11/21 03:30 80 13 98 10/10/21 23:12 37 C 72 20 122/75 99 10/10/21 22:30 78 16 92 10/10/21 21:31 77 135/76 Laboratory Results 10/11/21 10/11/21 10/11/21 Range/Units 12:06 12:03 12:03 WBC (4.8-10.8) K/uL RBC (4.2-5.4) M/uL Hgb (12.0-16.0) g/dL Hct (37-47) % MCV (80-100) fL MCH (25-34) pg MCHC (32-36) g/dL RDW Std Deviation (36.4-46.3) fL RDW Coeff of Anna (11.5-14.5) % Plt Count (130-400) K/uL MPV (7.4-10.4) fL Immature Gran % (Auto) % Neut % (Auto) % Lymph % (Auto) % Gulf % (Auto) % Eos % (Auto) % Baso % (Auto) % Neut # (Auto) (1.4-6.5) K/uL Lymph # (Auto) (1.2-3.4) K/uL [place] # (Auto) (0.11-0.59) K/uL Eos # (Auto) (0-0.5) K/uL Baso # (Auto) (0-0.2) K/uL Immature Gran # (Auto) (0.00-0.02) K/uL Sodium (136-145) mmol/L Potassium (3.5-5.1) mmol/L Chloride (98-107) mmol/L Carbon Dioxide (21-32) mmol/L Anion Gap (3-11) BUN (6-23) mg/dl Creatinine (0.6-1.2) mg/dl Est Cr Clr Drug Dosing ml/min Est GFR ( Amer) ml/min Est GFR (Non-Af Amer) ml/min BUN/Creatinine Ratio (10-20) Glucose (70-99(Fasting)) mg/dl POC Glucose 170 H (70-99) mg/dl Calcium (8.5-10.1) mg/dl Magnesium (1.7-2.4) mg/dl Total Bilirubin (0.2-1.0) mg/dl Direct Bilirubin (0-0.2) mg/dl AST (13-39) U/L ALT (7-52) U/L Alkaline Phosphatase (34-104) U/L Total Creatine Kinase 48 (26-192) U/L Total Protein (6.0-8.3) gm/dl Albumin (3.4-5.0) gm/dl ACTH Pending Urine Color Urine Appearance (Clear) Urine pH (4.5-7.5) Ur Specific [place] (1.000-1.030) Urine Protein (Negative) Urine Glucose (UA) (Negative) Urine Ketones (Negative) Urine Blood (Negative) Urine Nitrite (Negative) Urine Bilirubin (Negative) Urine Urobilinogen (Negative) Ur Leukocyte Esterase (Negative) Urine WBC (Auto) (0-5) /hpf Urine RBC (Auto) (0-4) /hpf U Hyaline Cast (Auto) (0-5) /lpf U Epithel Cells (Auto) (0-5) /lpf Urine Bacteria (Auto) (Negative) Hepatitis A IgM Ab (NON-REACTIVE) Hep Bs Antigen (NON-REACTIVE) Hep Bs Ag Confirmation Hep B Core IgM Ab (NON-REACTIVE) Hepatitis C Ab (EIA) (NON-REACTIVE) Hep C Ab Signal/Cutoff (<1.00) 10/11/21 10/11/21 10/11/21 Range/Units 09:25 08:12 05:49 WBC (4.8-10.8) K/uL RBC (4.2-5.4) M/uL Hgb (12.0-16.0) g/dL Hct (37-47) % MCV (80-100) fL MCH (25-34) pg MCHC (32-36) g/dL RDW Std Deviation (36.4-46.3) fL RDW Coeff of Anna (11.5-14.5) % Plt Count (130-400) K/uL MPV (7.4-10.4) fL Immature Gran % (Auto) % Neut % (Auto) % Lymph % (Auto) % Gulf % (Auto) % Eos % (Auto) % Baso % (Auto) % Neut # (Auto) (1.4-6.5) K/uL Lymph # (Auto) (1.2-3.4) K/uL [place] # (Auto) (0.11-0.59) K/uL Eos # (Auto) (0-0.5) K/uL Baso # (Auto) (0-0.2) K/uL Immature Gran # (Auto) (0.00-0.02) K/uL Sodium (136-145) mmol/L Potassium (3.5-5.1) mmol/L Chloride (98-107) mmol/L Carbon Dioxide (21-32) mmol/L Anion Gap (3-11) BUN (6-23) mg/dl Creatinine (0.6-1.2) mg/dl Est Cr Clr Drug Dosing ml/min Est GFR ( Amer) ml/min Est GFR (Non-Af Amer) ml/min BUN/Creatinine Ratio (10-20) Glucose (70-99(Fasting)) mg/dl POC Glucose 202 H (70-99) mg/dl Calcium (8.5-10.1) mg/dl Magnesium (1.7-2.4) mg/dl Total Bilirubin 1.3 H (0.2-1.0) mg/dl Direct Bilirubin 0.1 (0-0.2) mg/dl AST 63 H (13-39) U/L ALT 69 H (7-52) U/L Alkaline Phosphatase 107 H (34-104) U/L Total Creatine Kinase (26-192) U/L Total Protein 7.6 (6.0-8.3) gm/dl Albumin 4.0 (3.4-5.0) gm/dl ACTH Urine Color Yellow Urine Appearance Clear (Clear) Urine pH 5.0 (4.5-7.5) Ur Specific [place] 1.024 (1.000-1.030) Urine Protein Negative (Negative) Urine Glucose (UA) Negative (Negative) Urine Ketones Negative (Negative) Urine Blood 3+ H (Negative) Urine Nitrite Negative (Negative) Urine Bilirubin Negative (Negative) Urine Urobilinogen Negative (Negative) Ur Leukocyte Esterase Negative (Negative) Urine WBC (Auto) 1-5 (0-5) /hpf Urine RBC (Auto) 10-30 H (0-4) /hpf U Hyaline Cast (Auto) 0 (0-5) /lpf U Epithel Cells (Auto) >30 H (0-5) /lpf Urine Bacteria (Auto) Negative (Negative) Hepatitis A IgM Ab (NON-REACTIVE) Hep Bs Antigen (NON-REACTIVE) Hep Bs Ag Confirmation Hep B Core IgM Ab (NON-REACTIVE) Hepatitis C Ab (EIA) (NON-REACTIVE) Hep C Ab Signal/Cutoff (<1.00) 10/11/21 10/11/21 10/10/21 Range/Units 05:49 05:49 20:39 WBC 9.34 (4.8-10.8) K/uL RBC 4.60 (4.2-5.4) M/uL Hgb 13.9 (12.0-16.0) g/dL Hct 40.3 (37-47) % MCV 87.6 (80-100) fL MCH 30.2 (25-34) pg MCHC 34.5 (32-36) g/dL RDW Std Deviation 46.9 H (36.4-46.3) fL RDW Coeff of Anna 14.6 H (11.5-14.5) % Plt Count 143 (130-400) K/uL MPV 8.8 (7.4-10.4) fL Immature Gran % (Auto) 0.2 % Neut % (Auto) 53.6 % Lymph % (Auto) 33.5 % Gulf % (Auto) 10.5 % Eos % (Auto) 2.0 % Baso % (Auto) 0.2 % Neut # (Auto) 5.00 (1.4-6.5) K/uL Lymph # (Auto) 3.13 (1.2-3.4) K/uL [place] # (Auto) 0.98 H (0.11-0.59) K/uL Eos # (Auto) 0.19 (0-0.5) K/uL Baso # (Auto) 0.02 (0-0.2) K/uL Immature Gran # (Auto) 0.02 (0.00-0.02) K/uL Sodium 136 (136-145) mmol/L Potassium 3.6 (3.5-5.1) mmol/L Chloride 98 (98-107) mmol/L Carbon Dioxide 31 (21-32) mmol/L Anion Gap 7 (3-11) BUN 24 H (6-23) mg/dl Creatinine 0.78 (0.6-1.2) mg/dl Est Cr Clr Drug Dosing 106.7 ml/min Est GFR ( Amer) 105.7 ml/min Est GFR (Non-Af Amer) 91.2 ml/min BUN/Creatinine Ratio 30.8 H (10-20) Glucose 184 H (70-99(Fasting)) mg/dl POC Glucose 161 H (70-99) mg/dl Calcium 9.3 (8.5-10.1) mg/dl Magnesium 2.0 (1.7-2.4) mg/dl Total Bilirubin (0.2-1.0) mg/dl Direct Bilirubin (0-0.2) mg/dl AST (13-39) U/L ALT (7-52) U/L Alkaline Phosphatase (34-104) U/L Total Creatine Kinase (26-192) U/L Total Protein (6.0-8.3) gm/dl Albumin (3.4-5.0) gm/dl ACTH Urine Color Urine Appearance (Clear) Urine pH (4.5-7.5) Ur Specific [place] (1.000-1.030) Urine Protein (Negative) Urine Glucose (UA) (Negative) Urine Ketones (Negative) Urine Blood (Negative) Urine Nitrite (Negative) Urine Bilirubin (Negative) Urine Urobilinogen (Negative) Ur Leukocyte Esterase (Negative) Urine WBC (Auto) (0-5) /hpf Urine RBC (Auto) (0-4) /hpf U Hyaline Cast (Auto) (0-5) /lpf U Epithel Cells (Auto) (0-5) /lpf Urine Bacteria (Auto) (Negative) Hepatitis A IgM Ab (NON-REACTIVE) Hep Bs Antigen (NON-REACTIVE) Hep Bs Ag Confirmation Hep B Core IgM Ab (NON-REACTIVE) Hepatitis C Ab (EIA) (NON-REACTIVE) Hep C Ab Signal/Cutoff (<1.00) 10/10/21 10/10/21 Range/Units 16:48 10:01 WBC (4.8-10.8) K/uL RBC (4.2-5.4) M/uL Hgb (12.0-16.0) g/dL Hct (37-47) % MCV (80-100) fL MCH (25-34) pg MCHC (32-36) g/dL RDW Std Deviation (36.4-46.3) fL RDW Coeff of Anna (11.5-14.5) % Plt Count (130-400) K/uL MPV (7.4-10.4) fL Immature Gran % (Auto) % Neut % (Auto) % Lymph % (Auto) % [place] % (Auto) % Eos % (Auto) % Baso % (Auto) % Neut # (Auto) (1.4-6.5) K/uL Lymph # (Auto) (1.2-3.4) K/uL [place] # (Auto) (0.11-0.59) K/uL Eos # (Auto) (0-0.5) K/uL Baso # (Auto) (0-0.2) K/uL Immature Gran # (Auto) (0.00-0.02) K/uL Sodium (136-145) mmol/L Potassium (3.5-5.1) mmol/L Chloride (98-107) mmol/L Carbon Dioxide (21-32) mmol/L Anion Gap (3-11) BUN (6-23) mg/dl Creatinine (0.6-1.2) mg/dl Est Cr Clr Drug Dosing ml/min Est GFR ( Amer) ml/min Est GFR (Non-Af Amer) ml/min BUN/Creatinine Ratio (10-20) Glucose (70-99(Fasting)) mg/dl POC Glucose 167 H (70-99) mg/dl Calcium (8.5-10.1) mg/dl Magnesium (1.7-2.4) mg/dl Total Bilirubin (0.2-1.0) mg/dl Direct Bilirubin (0-0.2) mg/dl AST (13-39) U/L ALT (7-52) U/L Alkaline Phosphatase (34-104) U/L Total Creatine Kinase (26-192) U/L Total Protein (6.0-8.3) gm/dl Albumin (3.4-5.0) gm/dl ACTH Urine Color Urine Appearance (Clear) Urine pH (4.5-7.5) Ur Specific [place] (1.000-1.030) Urine Protein (Negative) Urine Glucose (UA) (Negative) Urine Ketones (Negative) Urine Blood (Negative) Urine Nitrite (Negative) Urine Bilirubin (Negative) Urine Urobilinogen (Negative) Ur Leukocyte Esterase (Negative) Urine WBC (Auto) (0-5) /hpf Urine RBC (Auto) (0-4) /hpf U Hyaline Cast (Auto) (0-5) /lpf U Epithel Cells (Auto) (0-5) /lpf Urine Bacteria (Auto) (Negative) Hepatitis A IgM Ab NON-REACTIVE (NON-REACTIVE) Hep Bs Antigen NON-REACTIVE (NON-REACTIVE) Hep Bs Ag Confirmation TNP Hep B Core IgM Ab NON-REACTIVE (NON-REACTIVE) Hepatitis C Ab (EIA) NON-REACTIVE (NON-REACTIVE) Hep C Ab Signal/Cutoff 0.05 (<1.00) PG Care Time/CCT Total # of Minutes Spent Total Time Spent with Patient: Total time spent is greater than 50% in coordination of care (as documented) at patient's floor/unit and/or counseling patient: Coding Level of Care Code 03791 Subseq Hosp Care Lvl 3 Diagnoses Edema of face R60.0 Hypercalcemia E83.52 Lower extremity edema R60.0 DVT (deep venous thrombosis) I82.409 Asthma J45.909 NINFA (obstructive sleep apnea) G47.33 Diabetes E11.9 Bipolar 1 disorder F31.9 Back pain M54.9 Ulcerative colitis K51.80 Digestive disease complication type: without complication Ulcerative colitis location: other ulcerative colitis Morbid obesity E66.01 (1) Ulcerative colitis Digestive disease complication type: without complication Ulcerative colitis location: other ulcerative colitis Qualified Code(s): K51.80 - Other ulcerative colitis without complications
[2021-10-11] MEDS: RIVAROXABAN 20 MG TAB PO SCH (08:44)
[2021-10-11] MEDS: ESCITALOPRAM OXALATE 20 MG TAB PO SCH (08:44)
[2021-10-11] MEDS: PROPRANOLOL HCL 10 MG TAB PO SCH ×2 (08:44→21:42)
[2021-10-11] MEDS: UMECLIDINIUM BROMIDE 62.5MCG/BLISTER 7 PUFFS/INHALER INH SCH (08:45)
[2021-10-11] MEDS: FLUTICASONE/VILANTEROL 200/25MCG 14 PUFFS/INHALER INH SCH (08:45)
[2021-10-11] MEDS: PANCREAZE (LIPASE 10,500U) CAP PO SCH ×3 (08:45→17:36)
[2021-10-11] MEDS: INSULIN ASPART PER UNIT SC SCH ×4 (08:46→21:43)
[2021-10-11] MEDS: INSULIN GLARGINE 100 UNIT/ML VIAL SQ SCH ×2 (08:47→21:43)
[2021-10-11] MEDS: PREGABALIN 150 MG CAP PO SCH ×3 (08:50→21:46)
[2021-10-11] MEDS: HYDROCODONE/ACETAMOPHEN 5/325MG TAB PO SCH ×3 (08:51→21:42)
--- NOTE | 2021-10-11 09:04 | Nephrology Consultation ---
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 CT is negative for obstruction * Laboratory studies reveal preserved kidney function with normal electrolyte balance * Urinalysis revealed trace protein on a concentrated sample. UPCR is 0.1. Serum albumin is 4.0. This is not nephrotic syndrome * Urine sediment is negative for cellular elements/casts. There is no indication of an underlying glomerular, interstitial or tubular injury * Recommend discussion w/ GI on management of Crohn's disease and minimizing steroid therapy * Consider having PCP perform 24 hour urine for creatinine and Na. Suspect patient has liberal Na intake and may benefit from nutritional counseling/low Na diet * Patient will need low dose loop diuretic as outpatient. Consider changing Furosemide 40 mg po daily to Bumex 1 mg po daily due to better absorption/bioavailability * No further Nephrology evaluation is indicated at this time. Will sign off. Please call if further assistance is needed. No Nephrology outpatient visit needed History of Present Illness Reason for Consultation: Edema Attending Physician: Jan Renner History of Present Illness Ms. Gordon is a 45 year old white female who is seen at the request of the [facility] for evaluation of edema. Medical records in the EMR were reviewed today and are summarized as follows: Ms. Gordon has no prior h/o kidney disease. She denies hematuria, foamy urine or prior Nephrology evaluation. Her medical history is significant for Crohn's disease s/p colectomy, chronic steroid therapy (intermittent over last several years), obesity, NINFA, asthma, AODM, bipolar disorder L5-S1 fusion w/ neuropathy and chronic low back pain. Ms. Gordon lives in [facility]. Her PCP is Dr. Garcia in [place]. She has received the majority of her hospital care at [facility]. Ms. Gordon reports that she was hospitalized earlier this month for 4 days at [facility] for evaluation of 30lb weight gain, LE swelling and progressive dyspnea. She had MRI of spine, CTA of the chest, bilateral lower extremity US, and echocardiogram performed. Ms. Gordon was placed on Xarelto for R IJ thrombus. She became symptomatically improved following diuresis w/ IV diuretics. Mrs. Gordon was admitted to [facility] 10/09 due to recurrent weight gain and BERGERON. EMD evaluation included negative troponin, normal TSH, unremarkable CT of abdomen and pelvis (no hydronephrosis/stone/mass). Following IV Furosemide Ms. Gordon has diuresed 2800 cc. Her weight has improved from 114kg to 112kg. She reports that her LE swelling has nearly resolved. Laboratory testing this morning reveals preserved kidney function w/ stable Cr 0.78. Urinalysis reveals trace protein on a concentrated sample. UPCR 0.1. Allergies Allergy/AdvReac Type Severity Reaction Status Date / Time nickel Allergy Mild Skin Verified 10/09/21 15:34 irritation Home Medications Medication Instructions Recorded Confirmed Type pregabalin 150 mg capsule (Lyrica) 150 mg PO BID 10/30/18 10/09/21 History insulin aspart U-100 100 unit/mL 30 unit SUBCUT TIDM 01/14/20 10/09/21 History (3 mL) subcutaneous pen (Novolog Flexpen U-100 Insulin aspart) albuterol sulfate 90 mcg/actuation 2 puff INHALATION DIRECTED PRN 11/22/20 10/09/21 History aerosol inhaler ascorbic acid (vitamin C) 500 mg 500 mg PO QAM 11/22/20 10/09/21 History tablet (Vitamin C) atorvastatin 10 mg tablet 10 mg PO QAM 11/22/20 10/09/21 History budesonide 3 mg 3 mg PO QDL 11/22/20 10/09/21 History capsule,delayed,extended release escitalopram oxalate 20 mg tablet 20 mg PO QAM 11/22/20 10/09/21 History (Lexapro) hydrocodone 5 mg-acetaminophen 325 1 tab PO TID 11/22/20 10/09/21 History mg tablet lamotrigine 200 mg tablet 200 mg PO HS 11/22/20 10/09/21 History (Lamictal) multivitamin 1 tab PO QAM 11/22/20 10/09/21 History lgpmwy-nmtkmcrk-izvkont 2 cap PO TIDM 01/13/21 10/09/21 History 36,000-114,000-180,000 unit capsule,delay rel (Creon) polysaccharide iron complex 150 mg 150 mg PO QAM 01/13/21 10/09/21 History iron capsule (iFerex 150) budesonide-formoterol HFA 160 2 puff INHALATION BID 03/07/21 10/09/21 History mcg-4.5 mcg/actuation aerosol inhaler (Symbicort) propranolol 10 mg tablet 10 mg PO BID 03/23/21 10/09/21 History ondansetron 4 mg disintegrating 4 mg PO Q6H PRN #14 tab 05/27/21 10/09/21 Rx tablet furosemide 40 mg tablet 40 mg PO DAILY 10/09/21 10/09/21 History insulin glargine 100 unit/mL (3 80 unit SUBCUT BID 10/09/21 10/09/21 History mL) subcutaneous pen (Lantus Solostar U-100 Insulin) rivaroxaban 20 mg tablet (Xarelto) 20 mg PO DAILY 10/09/21 10/09/21 History tiotropium bromide 18 mcg capsule 1 cap INHALATION DAILY 10/09/21 10/09/21 History with inhalation device (Spiriva with HandiHaler) ustekinumab 130 mg/26 mL 90 mg IV .[id number] 10/09/21 10/09/21 History intravenous solution (Stelara) vitamin A 10,000 unit capsule 0 unit PO DAILY 10/09/21 10/09/21 History Patient History Medical History Abnormal LFTs Asthma Back pain Bipolar 1 disorder Clostridium difficile infection Crohn disease Diabetes DVT (deep venous thrombosis) Hyperglycemia Left flank pain LLQ abdominal pain No pertinent family history NINFA (obstructive sleep apnea) 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 difficile Ulcerative colitis Surgical History History of colectomy Family History Other Family history non-contributory Social History Smoking Status: Former smoker Tobacco Type: Cigarettes Do You Dip or Chew Tobacco: No; Hx Alcohol Use: No Hx Substance Use: No Preferred Language: Kosovan Communication Ability: Effective Needle Loom Setter Required: No Beliefs That Will Affect Care: None Current Living Situation: Family Current Living Situation Comment: lives with daughter and two grandkids Other Information That Helps Us Care for You: No Feels Safe at Home: Yes Safety Concerns: Feels Safe At This Time Assistive Devices: CPAP and Oxygen - at Night Review of Systems Constitutional: no fever Eyes: no problem reported Ear, Nose, Mouth, Throat: no problem reported Respiratory: no cough and no dyspnea Cardiovascular: no chest pain, no palpitations and no edema Gastrointestinal: no abdominal pain, no nausea, no vomiting and no diarrhea/loose stools Genitourinary: no dysuria and no hematuria Musculoskeletal: no back pain Integumentary: no rash Neurologic: no confusion Physical Exam Constitutional: + obese and + cushingoid (kaba facies, + buffalo hump, + abdominal striae); not in distress Eyes: + anicteric sclerae and PERRL ENMT: external ear and nose normal, oropharynx normal Neck: + thick neck Respiratory: normal respiratory effort, lungs clear to auscultation Cardiovascular: RRR, no murmur, no edema Gastrointestinal (Abdomen): Inspection/Auscultation: normal bowel sounds Neurologic: awake; not confused Results & Data ([facility]) Vital Signs (Past 12 Hours) Vital Signs Temp Pulse Pulse Pulse Resp BP Pulse Ox 10/11/21 07:27 36.6 C 74 20 146/84 H 94 10/11/21 03:30 80 13 98 10/10/21 23:12 37 C 72 20 122/75 99 10/10/21 22:30 78 16 92 10/10/21 21:31 77 135/76 Laboratory Results Laboratory Tests 10/09/21 10/10/21 10/11/21 13:15 06:15 05:49 WBC 9.34 Hgb 13.9 Hct 40.3 Plt Count 143 Sodium Potassium Chloride Carbon Dioxide BUN Creatinine Glucose Calcium Magnesium Urine Color Dark Yellow Urine Appearance Turbid A Urine pH 5.0 Ur Specific [place] 1.029 Urine Protein Trace H Urine Glucose (UA) Negative Urine Blood Negative Urine RBC (Auto) 0-4 Protein/Creatinin Ratio 0.1 10/11/21 05:49 WBC Hgb Hct Plt Count Sodium 136 Potassium 3.6 Chloride 98 Carbon Dioxide 31 BUN 24 H Creatinine 0.78 Glucose 184 H Calcium 9.3 Magnesium 2.0 Urine Color Urine Appearance Urine pH Ur Specific [place] Urine Protein Urine Glucose (UA) Urine Blood Urine RBC (Auto) Protein/Creatinin Ratio Diagnostic Findings 10/09/[address] w/o contrast: Kidneys and ureters: Unremarkable. Bladder: Unremarkable. No evidence of nephrolithiasis or hydronephrosis. No acute abnormality is seen in particular no evidence of bowel wall thickening to suggest active Crohn's disease. Postsurgical changes of colonic resection are seen PG Care Time/CCT Total # of Minutes Spent Total Time Spent with Patient: Total time spent is greater than 50% in coordination of care (as documented) at patient's floor/unit and/or counseling patient: Coding Level of Care Code 84680 Inpt Consult Level 5 Diagnoses Edema R60.9
[2021-10-11 09:44] LABS: Bilirubin Direct 0.1 mg/dl (0-0.2); Bilirubin,Total 1.3 mg/dl (0.2-1.0); Total Protein 7.6 gm/dl (6.0-8.3)
[2021-10-11 09:46] LABS: Appearance Urine Clear (Clear); Bacteria Urine Automated Negative (Negative); Bilirubin Urine Negative (Negative); Blood Urine 3+ (Negative); Cast Urine Automated 0 /lpf (0-5); Color Urine Yellow; Epithelial Cell Urine Auto >30 /lpf (0-5); Glucose Urine UA Negative (Negative); Ketones Urine Negative (Negative); Leukocyte Esterase Urine Negative (Negative); Nitrite Urine Negative (Negative); Protein Urine Negative (Negative); Specific Gravity Urine 1.024 (1.000-1.030); Urobilinogen Urine Negative (Negative)
[2021-10-11] MEDS: LIDOCAINE 5% 1 PATCH TD SCH (09:53)
[2021-10-11] MEDS ORDERED: FUROSEMIDE 40 MG TAB PO ONE (13:31)
[2021-10-11] MEDS ORDERED: OPTIRAY 320 125ml IV ONE (15:33)
--- NOTE | 2021-10-11 15:47 | CT Scan Report ---
CT head/brain wo/w con CLINICAL HISTORY: headaches, blurry vision, ?cushings COMPARISON STUDY: No previous studies for comparison. TECHNIQUE: Axial images of the head were obtained before and after intravenous demonstration of 120 c c of Optiray 320 IV. Automated exposure control was utilized for the study. A dose lowering techniqu e was utilized adhering to the principles of ALARA. FINDINGS: No acute intracranial hemorrhage, midline shift or mass effect is present. Ventricular syst em is normal. Basal cisterns are patent. There are no extra-axial collections. No findings to suggest acute dural sinus thrombosis or acute territorial infarct. No intracranial mass or pathologic enhanc ement is noted. Sensitivity for detection of pituitary masses is significantly diminished given CT te chnique. Right sphenoid sinus is largely opacified. There are no calvarial abnormalities. There may b e mild bilateral proptosis. IMPRESSION: 1. No acute intracranial findings. 2. No intracranial masses identified although sensitivity for detection of pituitary lesions signific antly decreased given CT technique. If indicated, MRI could be obtained. 3. Largely opacified right sphenoid sinus. 4. Possible mild bilateral proptosis. ACT 112: Negative or not required by law. Electronically signed by: Jose Grey M.D. 10/11/2021 3:44 PM
--- NOTE | 2021-10-11 16:08 | CT Scan Report ---
CT VENOGRAPHY OF THE CHEST CLINICAL HISTORY: Upper extremity edema. Evaluate for obstruction. COMPARISON STUDY: Chest CT May 27, 2021. Chest radiograph October 09, 2021. Bilateral upper extrem ity venous Doppler ultrasound October 09, 2021. TECHNIQUE: Helical axial images of the chest were obtained during venous phase following intravenous injection of 120 cc Optiray 320 IV. Sagittal and coronal reconstructions were viewed as well as maxim al intensity projections. Automated exposure control was utilized for the study. A dose lowering [place] hn[place] was utilized adhering to the principles of ALARA. FINDINGS: The bilateral internal jugular veins are diminutive and not well visualized on this exam. T he right brachiocephalic vein is also small. The left brachiocephalic vein is patent. SVC is patent. Mild cardiomegaly is noted. Is no pericardial effusion. No enlarged thoracic lymph nodes are present. Pulmonary arteries are suboptimally assessed on this exam. No central pulmonary embolus is present. No pneumothorax or pleural effusion is noted. Bilateral subpleural lower lobe airspace opacities are present. Significant improvement in the lungs is noted compared to chest CT of May 27, 2021. Righ t middle lobe and lingular opacities reflect atelectasis. There is no pneumothorax or pleural effusio n. Hepatic steatosis is noted. There is mild splenomegaly. A 1.8 cm right adrenal nodule is unchanged from earlier exams. Gallbladder is surgically absent. IMPRESSION: 1. Patent SVC and left brachiocephalic vein. Diminutive bilateral internal jugular and right brachioc ephalic veins which are suboptimally assessed on this exam. 2. Bilateral lower lobe subpleural opacities which favor atelectasis although an infectious process c ould appear similar. ACT 112: Negative or not required by law. Electronically signed by: Jose Grey M.D. 10/11/2021 4:06 PM
[2021-10-11] MEDS: lamoTRIgine 100 MG TAB PO SCH (21:42)
[2021-10-12 06:06] LABS: Basophils # (auto) 0.02 K/uL (0-0.2); Basophils % (auto) 0.2 %; Eosinophils # (auto) 0.15 K/uL (0-0.5); Eosinophils % (auto) 1.7 %; Hematocrit (blood only) 39.8 % (37-47); Hemoglobin 13.4 g/dL (12.0-16.0); Immature Granulocytes # (auto) 0.03 K/uL (0.00-0.02); Immature Granulocytes % (auto) 0.3 %; Lymphocytes # (auto) 2.63 K/uL (1.2-3.4); Lymphocytes % (auto) 30.1 %; Mean Corpuscular Hgb Conc 33.7 g/dL (32-36); Mean Corpuscular Volume 89.2 fL (80-100); Monocytes # (auto) 0.93 K/uL (0.11-0.59); Monocytes % (auto) 10.7 %; Neutrophils # (auto) 4.97 K/uL (1.4-6.5); Platelet Count 158 K/uL (130-400); RDW Coefficient of Variation 14.3 % (11.5-14.5); RDW Standard Deviation 46.8 fL (36.4-46.3); Red Blood Count 4.46 M/uL (4.2-5.4); White Blood Count 8.73 K/uL (4.8-10.8)
[2021-10-12 06:24] LABS: BUN Creatinine Ratio 28.8 (10-20); Calcium 9.2 mg/dl (8.5-10.1); Est GFR (African American) 114.5 ml/min; Est GFR (Non-African American) 98.8 ml/min; Magnesium 2.1 mg/dl (1.7-2.4); Potassium 3.5 mmol/L (3.5-5.1)
[2021-10-12] MEDS: ESCITALOPRAM OXALATE 20 MG TAB PO SCH (08:09)
[2021-10-12] MEDS: PROPRANOLOL HCL 10 MG TAB PO SCH ×2 (08:09→21:35)
[2021-10-12] MEDS: RIVAROXABAN 20 MG TAB PO SCH (08:09)
[2021-10-12] MEDS: PANCREAZE (LIPASE 10,500U) CAP PO SCH ×3 (08:10→17:44)
[2021-10-12] MEDS: LIDOCAINE 5% 1 PATCH TD SCH (08:10)
[2021-10-12] MEDS: FLUTICASONE/VILANTEROL 200/25MCG 14 PUFFS/INHALER INH SCH (08:11)
[2021-10-12] MEDS: PREGABALIN 150 MG CAP PO SCH ×3 (08:16→21:35)
[2021-10-12] MEDS: HYDROCODONE/ACETAMOPHEN 5/325MG TAB PO SCH ×3 (08:16→21:35)
[2021-10-12] MEDS: INSULIN GLARGINE 100 UNIT/ML VIAL SQ SCH ×2 (08:19→22:26)
--- NOTE | 2021-10-12 08:22 | Hospitalist Progress Note ---
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, but ACTH level sent Recently hospitalized at [facility] edema/back/leg pain which improved, then was discharged and started swelling --> Given lasix by her PCP for swelling with improvement but then returned again --> ALso, recently started on Stelara for her Crohns, approximately 2 weeks ago She had been given prednisone taper for Crohns flare in July from this hospital, denies any other use of steroids, but had been placed on budesonide by her primary care 3 months ago for her asthma which is likely contributing Hold PO budesonide, as likely offending agent Random and AM cortisol without significant abn Urine cr acceptable, elevated total protein random urine. Not c/w nephrotic syndrome ECHO with LV systolic function normal, normal diastolic function. RVSP normal TSH wnl, Ft4, t3 wnl Given lasix 40mg IV lasix x 2 on admission, repeat 20mg IV 10/11 and scheduled 40mg PO moving forward --> Edema improved to LE but still present UE --NOW increased to LE 10/12 Wt decreased 112kg but unchanged today Given 40mg PO lasix this morning, but will change to 1mg Bumex at nephrology rec and monitor response. Can increase if needed Venous Doppler UE * -- Nonocclusive thrombus in the distal right jugular vein. Diminutive size versus thrombus in the right innominate and bilateral subclavian veins. Otherwise no deep venous thrombi are seen in the bilateral extremities. * Consider check venogram neck, but reported improvement of swelling 10/10 but now increased swelling again and will order Remains on Xarelto Rec'd CHF clinic follow up/low salt diet/daily weight monitoring Per nephro, can consider 24hr urine for cr and Na and rec low salt diet. Order placed Also reported headache for past four months along with associated blurry vision and reported never had imaging of brain --> Will check CT head, as well as venogram chest to eval for increased UE swelling --> No mass/lesion but unable to eval for pituitary lesion and will check MRI brain w/wo as well as cervical spine given increased swelling and radiculopathy symptoms ACTH pending (2) Back pain: Plan: Chronic with L5-S1 fusion Recently with increased L low back pain and symptoms suggesting worsening of chronic back issues. Discussed obtaining imaging, she actually had repeat imaging of thoracic/lumbar spine at [facility] which indicated impingement of exiting nerve roots and central canal stenosis at L4/L5/S1 regiong. --> She states her spine surgeon in [place] had office call to set up appointment for follow up care regarding these findings. Given morphine IV 10/10, seems to be more comfortable today with less edema to LE/sacrum --> discussed can try increasing her lyrica to TID dosing and would avoid IV narcotics if possible. --> agreeable, increased to 150mg TID Try dose flexeril x 1, if effective can consider cautious use for breakthrough. Has not been using prn oxycodone due to report of feeling like people are judging her Voltaren gel as needed Hydrocodone available as taking at home UA negative for infection/UTI, however reports foul smelling urine today and will repeat. Requesting records for [facility] spine where she had recent CT lumbar spine showing significant abnormality (report on her phone if needed sooner) --> Will consult Dr Jones at patient request, likely not to be seen until tomorrow (3) Ulcerative colitis: Plan: She is on Stelara and budesonide - Hold budesonide as above - She received her Stelara last week, recently started this medication 2 weeks ago (previously on Humira in past) F/u GI at d/c -- of note, she stated always issues with diarrhea and was given opiates in past to slow this, but hasn't been on in some time GI consultation given recent initiation of Stelara and ? if related (4) Hypercalcemia: Plan: Ca 10.5 on admission PTH wnl, checked Vit D level -- low at 28 Diuretics as above, repeat Ca 9.3 (albumin 4.0) ?primary hyperparathyroidism, ?need for f/u endocrinology at discharge for pos sible sergio syndrome as well MRI brain as above for today (5) Lower extremity edema: Plan: As above Lasix 40mg IV x 2 given, continue usual dose (given 20mg IV lasix 10/10, resumed 40mg PO daily) D/c'd olson as placed in ER CTAP without mass/other pathology Improved 10/11, increased 10/12 and switching to bumex 1mg daily and monitor response (6) DVT (deep venous thrombosis): Plan: Original right IJ 2001 - noted on her recent CTA of the chest - Continue her Xarelto- as above for further eval (7) Asthma: Plan: Chronic- well controlled on current therapy - Continue EARL - Continue symbicort - Hold oral budesonide given swelling. Breathing stable 97% on RA (8) NINFA (obstructive sleep apnea): Plan: CPAP 11CM H20 with 2LNC - she voices compliance Ordered for HS, and has utilized (9) Diabetes: Plan: Continue her 80 mg lantus BID Aspart sliding scale with CF 20 and carb ration 1:9 BSGs acceptable (10) Bipolar 1 disorder: Plan: Continue Lomotrigine, lexapro (11) Morbid obesity: Plan: encourage weight loss/dietary changes Plan: continued inpatient stay Admission and Anticipated Discharge Date Admission Date: October 09, 2021 Subjective Patient evaluated this morning. Doing alright. Teary when asked about pain and she states she didn't want to ask for anything and have people pole framer machine her. Prior imaging CT lumbar spine done at [facility] Spine she states but doesn't have appointment until end of October. Obv wanting to hold off on steroids for treatment. Tender to palpation paraspinal muscles. Lidocaine patch not very effective. Didn't notice much of different with increased Lyrica. Will try dose of Flexeril x 1, additional PO oxycodone available prn. Discussed consulting GI to see if related to Stelara. Also discussed switching to Bumex as edema to legs slightly increased today despite the Lasix 40mg PO given yesterday. She notes her urine is still foul smelling and darker in appearance. Will recheck UA for safety but did have one yesterday that was negative. Continues to move her bowels. No fever/chills. Denies chest pain/shortness of breath, no abdominal pain, nausea or vomiting at this time. Will also request records for spine and consult Dr Jones at patient request. Review of Systems Review of Systems: All systems reviewed & are unremarkable except as noted in HPI & below Physical Exam Physical Exam: General: WD/WN obese female, older appearing than stated age, sitting up at side of the bed, slightly teary complaining of L back pain and appears slightly uncomfortable, kaba facies Eyes: anicteric, pupils equal/reactive to light but slightly bulging, ENT: mmm, trachea midline without deviation, thickened neck, no appreciable thyromegaly, buffalo hump, acanthosis nigricans appearance to neck Resp: CTAB, diminished in the bases, no wheezing/crackles, on room air CV: RRR, no m/r/g, no calf tenderness, no JVD, slight non-pitting edema to face/shoulders/arms, trace pitting edema b/l LE, LE edema 1+ pre-tibial edema GI: +BS, soft, non-tender MSK/Neuro: +L straight leg raise, L CVA tenderness, decreased strength plantar/dorsiflexion on the left compared to the right, pulses palpable and sensation slightly decreased to light touch : NO OLSON Psych: alert, oriented to person/place/time, cooperative and pleasant but tearing up regarding pain Results & Data Results & Data ([facility]) Vital Signs (Past 12 Hours) Vital Signs Temp Pulse Pulse Pulse Resp BP Pulse Ox 10/12/21 07:36 36.6 C 69 18 128/74 97 10/12/21 02:39 16 93 10/11/21 23:04 36.8 C 79 18 127/78 96 10/11/21 21:39 80 116/74 10/11/21 21:00 79 18 94 Laboratory Results 10/12/21 10/12/21 10/12/21 Range/Units 08:01 05:45 05:45 WBC (4.8-10.8) K/uL RBC (4.2-5.4) M/uL Hgb (12.0-16.0) g/dL Hct (37-47) % MCV (80-100) fL MCH (25-34) pg MCHC (32-36) g/dL RDW Std Deviation (36.4-46.3) fL RDW Coeff of Anan (11.5-14.5) % Plt Count (130-400) K/uL MPV (7.4-10.4) fL Immature Gran % (Auto) % Neut % (Auto) % Lymph % (Auto) % [place] % (Auto) % Eos % (Auto) % Baso % (Auto) % Neut # (Auto) (1.4-6.5) K/uL Lymph # (Auto) (1.2-3.4) K/uL [place] # (Auto) (0.11-0.59) K/uL Eos # (Auto) (0-0.5) K/uL Baso # (Auto) (0-0.2) K/uL Immature Gran # (Auto) (0.00-0.02) K/uL Sodium (136-145) mmol/L Potassium (3.5-5.1) mmol/L Chloride (98-107) mmol/L Carbon Dioxide (21-32) mmol/L Anion Gap (3-11) BUN (6-23) mg/dl Creatinine (0.6-1.2) mg/dl Est Cr Clr Drug Dosing ml/min Est GFR ( Amer) ml/min Est GFR (Non-Af Amer) ml/min BUN/Creatinine Ratio (10-20) Glucose (70-99(Fasting)) mg/dl POC Glucose 220 H (70-99) mg/dl Calcium (8.5-10.1) mg/dl Magnesium (1.7-2.4) mg/dl Total Bilirubin (0.2-1.0) mg/dl Direct Bilirubin (0-0.2) mg/dl AST (13-39) U/L ALT (7-52) U/L Alkaline Phosphatase (34-104) U/L Total Creatine Kinase (26-192) U/L Total Protein (6.0-8.3) gm/dl Albumin (3.4-5.0) gm/dl Free T4 0.84 (0.61-1.60) ng/dl Free T3 3.80 (2.3-4.2) pg/ml ACTH Urine Color Urine Appearance (Clear) Urine pH (4.5-7.5) Ur Specific [place] (1.000-1.030) Urine Protein (Negative) Urine Glucose (UA) (Negative) Urine Ketones (Negative) Urine Blood (Negative) Urine Nitrite (Negative) Urine Bilirubin (Negative) Urine Urobilinogen (Negative) Ur Leukocyte Esterase (Negative) Urine WBC (Auto) (0-5) /hpf Urine RBC (Auto) (0-4) /hpf U Hyaline Cast (Auto) (0-5) /lpf U Epithel Cells (Auto) (0-5) /lpf Urine Bacteria (Auto) (Negative) 10/12/21 10/12/21 10/11/21 Range/Units 05:45 05:45 20:33 WBC 8.73 (4.8-10.8) K/uL RBC 4.46 (4.2-5.4) M/uL Hgb 13.4 (12.0-16.0) g/dL Hct 39.8 (37-47) % MCV 89.2 (80-100) fL MCH 30.0 (25-34) pg MCHC 33.7 (32-36) g/dL RDW Std Deviation 46.8 H (36.4-46.3) fL RDW Coeff of Anna 14.3 (11.5-14.5) % Plt Count 158 (130-400) K/uL MPV 9.0 (7.4-10.4) fL Immature Gran % (Auto) 0.3 % Neut % (Auto) 57.0 % Lymph % (Auto) 30.1 % [place] % (Auto) 10.7 % Eos % (Auto) 1.7 % Baso % (Auto) 0.2 % Neut # (Auto) 4.97 (1.4-6.5) K/uL Lymph # (Auto) 2.63 (1.2-3.4) K/uL [place] # (Auto) 0.93 H (0.11-0.59) K/uL Eos # (Auto) 0.15 (0-0.5) K/uL Baso # (Auto) 0.02 (0-0.2) K/uL Immature Gran # (Auto) 0.03 H (0.00-0.02) K/uL Sodium 135 L (136-145) mmol/L Potassium 3.5 (3.5-5.1) mmol/L Chloride 99 (98-107) mmol/L Carbon Dioxide 28 (21-32) mmol/L Anion Gap 8 (3-11) BUN 21 (6-23) mg/dl Creatinine 0.73 (0.6-1.2) mg/dl Est Cr Clr Drug Dosing 114.0 ml/min Est GFR ( Amer) 114.5 ml/min Est GFR (Non-Af Amer) 98.8 ml/min BUN/Creatinine Ratio 28.8 H (10-20) Glucose 207 H (70-99(Fasting)) mg/dl POC Glucose 177 H (70-99) mg/dl Calcium 9.2 (8.5-10.1) mg/dl Magnesium 2.1 (1.7-2.4) mg/dl Total Bilirubin (0.2-1.0) mg/dl Direct Bilirubin (0-0.2) mg/dl AST (13-39) U/L ALT (7-52) U/L Alkaline Phosphatase (34-104) U/L Total Creatine Kinase (26-192) U/L Total Protein (6.0-8.3) gm/dl Albumin (3.4-5.0) gm/dl Free T4 (0.61-1.60) ng/dl Free T3 (2.3-4.2) pg/ml ACTH Urine Color Urine Appearance (Clear) Urine pH (4.5-7.5) Ur Specific [place] (1.000-1.030) Urine Protein (Negative) Urine Glucose (UA) (Negative) Urine Ketones (Negative) Urine Blood (Negative) Urine Nitrite (Negative) Urine Bilirubin (Negative) Urine Urobilinogen (Negative) Ur Leukocyte Esterase (Negative) Urine WBC (Auto) (0-5) /hpf Urine RBC (Auto) (0-4) /hpf U Hyaline Cast (Auto) (0-5) /lpf U Epithel Cells (Auto) (0-5) /lpf Urine Bacteria (Auto) (Negative) 10/11/21 10/11/21 10/11/21 Range/Units 17:09 12:06 12:03 WBC (4.8-10.8) K/uL RBC (4.2-5.4) M/uL Hgb (12.0-16.0) g/dL Hct (37-47) % MCV (80-100) fL MCH (25-34) pg MCHC (32-36) g/dL RDW Std Deviation (36.4-46.3) fL RDW Coeff of Anna (11.5-14.5) % Plt Count (130-400) K/uL MPV (7.4-10.4) fL Immature Gran % (Auto) % Neut % (Auto) % Lymph % (Auto) % [place] % (Auto) % Eos % (Auto) % Baso % (Auto) % Neut # (Auto) (1.4-6.5) K/uL Lymph # (Auto) (1.2-3.4) K/uL [place] # (Auto) (0.11-0.59) K/uL Eos # (Auto) (0-0.5) K/uL Baso # (Auto) (0-0.2) K/uL Immature Gran # (Auto) (0.00-0.02) K/uL Sodium (136-145) mmol/L Potassium (3.5-5.1) mmol/L Chloride (98-107) mmol/L Carbon Dioxide (21-32) mmol/L Anion Gap (3-11) BUN (6-23) mg/dl Creatinine (0.6-1.2) mg/dl Est Cr Clr Drug Dosing ml/min Est GFR ( Amer) ml/min Est GFR (Non-Af Amer) ml/min BUN/Creatinine Ratio (10-20) Glucose (70-99(Fasting)) mg/dl POC Glucose 151 H 170 H (70-99) mg/dl Calcium (8.5-10.1) mg/dl Magnesium (1.7-2.4) mg/dl Total Bilirubin (0.2-1.0) mg/dl Direct Bilirubin (0-0.2) mg/dl AST (13-39) U/L ALT (7-52) U/L Alkaline Phosphatase (34-104) U/L Total Creatine Kinase (26-192) U/L Total Protein (6.0-8.3) gm/dl Albumin (3.4-5.0) gm/dl Free T4 (0.61-1.60) ng/dl Free T3 (2.3-4.2) pg/ml ACTH Pending Urine Color Urine Appearance (Clear) Urine pH (4.5-7.5) Ur Specific [place] (1.000-1.030) Urine Protein (Negative) Urine Glucose (UA) (Negative) Urine Ketones (Negative) Urine Blood (Negative) Urine Nitrite (Negative) Urine Bilirubin (Negative) Urine Urobilinogen (Negative) Ur Leukocyte Esterase (Negative) Urine WBC (Auto) (0-5) /hpf Urine RBC (Auto) (0-4) /hpf U Hyaline Cast (Auto) (0-5) /lpf U Epithel Cells (Auto) (0-5) /lpf Urine Bacteria (Auto) (Negative) 10/11/21 10/11/21 10/11/21 Range/Units 12:03 09:25 05:49 WBC (4.8-10.8) K/uL RBC (4.2-5.4) M/uL Hgb (12.0-16.0) g/dL Hct (37-47) % MCV (80-100) fL MCH (25-34) pg MCHC (32-36) g/dL RDW Std Deviation (36.4-46.3) fL RDW Coeff of Anna (11.5-14.5) % Plt Count (130-400) K/uL MPV (7.4-10.4) fL Immature Gran % (Auto) % Neut % (Auto) % Lymph % (Auto) % [place] % (Auto) % Eos % (Auto) % Baso % (Auto) % Neut # (Auto) (1.4-6.5) K/uL Lymph # (Auto) (1.2-3.4) K/uL [place] # (Auto) (0.11-0.59) K/uL Eos # (Auto) (0-0.5) K/uL Baso # (Auto) (0-0.2) K/uL Immature Gran # (Auto) (0.00-0.02) K/uL Sodium (136-145) mmol/L Potassium (3.5-5.1) mmol/L Chloride (98-107) mmol/L Carbon Dioxide (21-32) mmol/L Anion Gap (3-11) BUN (6-23) mg/dl Creatinine (0.6-1.2) mg/dl Est Cr Clr Drug Dosing ml/min Est GFR ( Amer) ml/min Est GFR (Non-Af Amer) ml/min BUN/Creatinine Ratio (10-20) Glucose (70-99(Fasting)) mg/dl POC Glucose (70-99) mg/dl Calcium (8.5-10.1) mg/dl Magnesium (1.7-2.4) mg/dl Total Bilirubin 1.3 H (0.2-1.0) mg/dl Direct Bilirubin 0.1 (0-0.2) mg/dl AST 63 H (13-39) U/L ALT 69 H (7-52) U/L Alkaline Phosphatase 107 H (34-104) U/L Total Creatine Kinase 48 (26-192) U/L Total Protein 7.6 (6.0-8.3) gm/dl Albumin 4.0 (3.4-5.0) gm/dl Free T4 (0.61-1.60) ng/dl Free T3 (2.3-4.2) pg/ml ACTH Urine Color Yellow Urine Appearance Clear (Clear) Urine pH 5.0 (4.5-7.5) Ur Specific [place] 1.024 (1.000-1.030) Urine Protein Negative (Negative) Urine Glucose (UA) Negative (Negative) Urine Ketones Negative (Negative) Urine Blood 3+ H (Negative) Urine Nitrite Negative (Negative) Urine Bilirubin Negative (Negative) Urine Urobilinogen Negative (Negative) Ur Leukocyte Esterase Negative (Negative) Urine WBC (Auto) 1-5 (0-5) /hpf Urine RBC (Auto) 10-30 H (0-4) /hpf U Hyaline Cast (Auto) 0 (0-5) /lpf U Epithel Cells (Auto) >30 H (0-5) /lpf Urine Bacteria (Auto) Negative (Negative) Diagnostic Findings Head CT 10/11/21 13:21 CT head/brain wo/w con CLINICAL HISTORY: headaches, blurry vision, ?cushings COMPARISON STUDY: No previous studies for comparison. TECHNIQUE: Axial images of the head were obtained before and after intravenous demonstration of 120 cc of Optiray 320 IV. Automated exposure control was utilized for the study. A dose lowering technique was utilized adhering to the principles of ALARA. FINDINGS: No acute intracranial hemorrhage, midline shift or mass effect is present. Ventricular system is normal. Basal cisterns are patent. There are no extra-axial collections. No findings to suggest acute dural sinus thrombosis or acute territorial infarct. No intracranial mass or pathologic enhancement is noted. Sensitivity for detection of pituitary masses is significantly diminished given CT technique. Right sphenoid sinus is largely opacified. There are no calvarial abnormalities. There may be mild bilateral proptosis. IMPRESSION: 1. No acute intracranial findings. 2. No intracranial masses identified although sensitivity for detection of pitui tary lesions significantly decreased given CT technique. If indicated, MRI could be obtained. 3. Largely opacified right sphenoid sinus. 4. Possible mild bilateral proptosis. ACT 112: Negative or not required by law. Electronically signed by: Jose Grey M.D. 10/11/2021 3:[address] 10/11/21 13:25 CT VENOGRAPHY OF THE CHEST CLINICAL HISTORY: Upper extremity edema. Evaluate for obstruction. COMPARISON STUDY: Chest CT May 27, 2021. Chest radiograph October 09, 2021. Bilateral upper extremity venous Doppler ultrasound October 09, 2021. TECHNIQUE: Helical axial images of the chest were obtained during venous phase following intravenous injection of 120 cc Optiray 320 IV. Sagittal and coronal reconstructions were viewed as well as maximal intensity projections. Automated exposure control was utilized for the study. A dose lowering technique was utilized adhering to the principles of ALARA. FINDINGS: The bilateral internal jugular veins are diminutive and not well visualized on this exam. The right brachiocephalic vein is also small. The left brachiocephalic vein is patent. SVC is patent. Mild cardiomegaly is noted. Is no pericardial effusion. No enlarged thoracic lymph nodes are present. Pulmonary arteries are suboptimally assessed on this exam. No central pulmonary embolus is present. No pneumothorax or pleural effusion is noted. Bilateral subpleural lower lobe airspace opacities are present. Significant improvement in the lungs is noted compared to chest CT of May 27, 2021. Right middle lobe and lingular opacities reflect atelectasis. There is no pneumothorax or pleural effusion. Hepatic steatosis is noted. There is mild splenomegaly. A 1.8 cm right adrenal nodule is unchanged from earlier exams. Gallbladder is surgically absent. IMPRESSION: 1. Patent SVC and left brachiocephalic vein. Diminutive bilateral internal jugular and right brachiocephalic veins which are suboptimally assessed on this exam. 2. Bilateral lower lobe subpleural opacities which favor atelectasis although an infectious process could appear similar. ACT 112: Negative or not required by law. Electronically signed by: Jose Grey M.D. 10/11/2021 4:06 PM PG Care Time/CCT Total # of Minutes Spent Total Time Spent with Patient: Total time spent is greater than 50% in coordination of care (as documented) at patient's floor/unit and/or counseling patient: Coding Level of Care Code 07151 Subseq Hosp Care Lvl 3 Diagnoses Edema of face R60.0 Hypercalcemia E83.52 Lower extremity edema R60.0 DVT (deep venous thrombosis) I82.409 Asthma J45.909 NINFA (obstructive sleep apnea) G47.33 Diabetes E11.9 Bipolar 1 disorder F31.9 Back pain M54.9 Ulcerative colitis K51.80 Digestive disease complication type: without complication Ulcerative colitis location: other ulcerative colitis Morbid obesity E66.01 (1) Ulcerative colitis Digestive disease complication type: without complication Ulcerative colitis location: other ulcerative colitis Qualified Code(s): K51.80 - Other ulcerative colitis without complications
[2021-10-12] MEDS ORDERED: POTASSIUM CHLORIDE CRTAB 20 MEQ TABCR PO STA (08:26)
[2021-10-12] MEDS: INSULIN ASPART PER UNIT SC SCH ×4 (08:27→22:32)
[2021-10-12] MEDS: UMECLIDINIUM BROMIDE 62.5MCG/BLISTER 7 PUFFS/INHALER INH SCH (08:29)
[2021-10-12] MEDS ORDERED: FUROSEMIDE 40 MG TAB PO SCH (09:00)
[2021-10-12] MEDS ORDERED: BUMETANIDE 1 MG TAB PO ONE (09:21)
[2021-10-12] MEDS ORDERED: CYCLOBENZAPRINE HCL 5 MG TAB PO STA (09:30)
[2021-10-12 10:04] LABS: Albumin Level 3.9 gm/dl (3.4-5.0); Bilirubin Direct 0.1 mg/dl (0-0.2); Bilirubin,Total 1.3 mg/dl (0.2-1.0); Total Protein 7.5 gm/dl (6.0-8.3)
[2021-10-12] MEDS: HYDROCODONE/ACETAMOPHEN 5/325MG TAB PO PRN (10:05)
[2021-10-12 10:25] LABS: Lyme Ab IgG w/WB Rflx Negative (Negative); Lyme Ab IgM w/WB Rflx Negative (Negative)
[2021-10-12] MEDS ORDERED: GADOBUTROL 30ML VIAL IV ONE (12:04)
--- NOTE | 2021-10-12 13:02 | Magnetic Resonance Report ---
MRI OF THE CERVICAL SPINE WITH AND WITHOUT CONTRAST CLINICAL HISTORY: Upper extremity edema, r/o mass, ?cervical radiculopathy COMPARISON: None TECHNIQUE: Utilizing a 1.5 Abbie magnet and dedicated coil, multiplanar, multiecho imaging of the ce rvical spine was performed before and after intravenous administration of 11 of Gadavist. FINDINGS: There is straightening of the normal cervical lordosis. Vertebral body heights are maintained. There is no suspicious marrow replacement. No marrow edema is present. Cervical cord signal and caliber are normal. No intracanalicular mass or fluid collection. No abnormal enhancement within the cervical ca nal is present. Paravertebral soft tissues are unremarkable. Sphenoid sinus also thickening and fluid is present. C2-C3: The central canal and neural foramen are patent C3-C4: The central canal and neural foramen are patent. C4-C5: Small right paracentral disc osteophyte complex is noted which slightly indents the ventral a spect of the cord. There is mild to moderate central canal narrowing. Mild to moderate right neural f oraminal narrowing is noted due to uncovertebral hypertrophy and facet arthrosis. There is mild narro wing of the left neural foramen. C5-C6: Left paracentral disc osteophyte complex indents the left ventral aspect of the cord. There i s moderate narrowing of the canal. Neural foramen are patent. C6-C7: Central canal and neural foramen are patent. C7-T1: Central canal and neural foramen are patent. IMPRESSION: 1. Left paracentral disc osteophyte complex at C5-C6 that indents the left ventral aspect of the cord and results in moderate central canal narrowing. Normal cervical cord signal and caliber. 2. Small right paracentral disc osteophyte complex at C4-C5 which results in mild to moderate central canal narrowing. 3. Mild to moderate multilevel neural foraminal narrowing, as above. ACT 112: Negative or not required by law. Electronically signed by: Jose Grey M.D. 10/12/2021 12:59 PM
--- NOTE | 2021-10-12 13:03 | Magnetic Resonance Report ---
Brain and pituitary MRI WITH AND WITHOUT CONTRAST HISTORY: Dizziness. Right-sided numbness. eval for pituitary lesion TECHNIQUE: Multiplanar multisequence MRI of the brain was performed both before and after the intrave nous administration of contrast. COMPARISON STUDY: None. FINDINGS: There are no areas of restricted diffusion to suggest acute infarction. The pituitary gland is normal in size. The pituitary stalk is normal in caliber. There is a small hypointense focus with in the mid aspect of the pituitary gland measuring approximately 3 mm. This favors an area of scarrin g or calcification. A microadenoma is considered less likely but not entirely excluded. Therefore, 6- 12 month MRI follow-up recommended to ensure stability of this finding. Moderate mucosal thickening a nd a fluid level within the sphenoid sinuses resulting in near complete opacification. Mild bilateral proptosis again noted. There are few scattered punctate foci of T2 hyperintensity seen within the bi lateral frontal and parietal lobes. Remaining brain parenchyma demonstrates a normal signal intensity . The mastoid air cells are clear. The ventricles and sulci are within normal limits for age. There i s no mass, hematoma, midline shift. The major vascular flow-voids at the skull base are well maintain ed. Postcontrast sequences show no areas of abnormal enhancement. IMPRESSION: 1. There is a small hypointense focus within the mid aspect of the pituitary gland measuring approxim ately 3 mm. This favors an area of scarring or calcification. A microadenoma is considered less likel y but not entirely excluded. Therefore, 6-12 month MRI follow-up recommended to ensure stability of t his finding. 2. No acute intracranial abnormality. 3. A few scattered T2 hyperintense foci within the white matter of the left frontal and parietal lobe s which are nonspecific. This can be seen in the setting of mild microvascular ischemic change, migra yohan, or less likely a demyelinating process. ACT 112: Negative or not required by law. Electronically signed by: Patricio Mcintosh M.D. 10/12/2021 1:01 PM
--- NOTE | 2021-10-12 13:08 | Ultrasound Report ---
RENAL ULTRASOUND HISTORY: L back CVA tenderness COMPARISON: Abdomen and pelvis CT 10/09/2021. FINDINGS: Right kidney: 11.5 cm. No hydronephrosis. Normal corticomedullary differentiation and cortical thickn ess. Left kidney: 12.3 cm. No hydronephrosis. Normal corticomedullary differentiation and cortical thickne ss. Bladder: No bladder wall thickening. The bilateral ureteral jets were identified. Questional small le ft ureterocele. IMPRESSION: 1. No hydronephrosis. 2. Questionable small left ureterocele. ACT 112: Negative or not required by law. Electronically signed by: Patricio Mcintosh M.D. 10/12/2021 1:07 PM
[2021-10-12] MEDS ORDERED: MoRPHine SULFATE 2 MG/ML CARP IV STA (13:22)
--- NOTE | 2021-10-12 14:29 | Gastrointestinal Consultation ---
Date of Consultation October 12, 2021 Assessment & Plan (1) Crohn disease: (2) Edema: crohns disease on stelara and recent course of budesonide, here with edema of th eface and legs: postmarketing reports have shown angioedema in stelara but this does not appear to be angioedema. It is unlikely that stelara caused any of this edema especially given the timing of sx's predates stelara use. agree that budesonide/steroids likely culprit for her edema recs: --continue stelara as scheduled (next infusion in 6 weeks) --treatment of facial and LE edema with diuresis as per primary team --can follow up with her primary GI Dr. Nino at [facility] as an outpatient Thank you for allowing me to participate in the care of this patient History of Present Illness Attending Physician: Jan Lam Jud History of Present Illness 45 yo female with hx Crohns disease followed by Dr. Nino of [facility], here with edema of the face and legs. She was on a course of budesonide recently and prednisone last april and noticed 3 weeks ago her face and legs becoming significantly swollen. She has 7 liquid bowel movements daily, this is her baseline, does not feel like a flre up for her. No hematochezia, notes LLQ abdominal pains. She was placed on stelara 2 weeks ago and got first infusion then as Humira did not work for her. Currently being diuresed by primary team for the edema. GI asked to consult to weigh in if the stelara affected her edema. No lip swelling nor shortness of breath. labs reviewed, VSS. Allergies Allergy/AdvReac Type Severity Reaction Status Date / Time nickel Allergy Mild Skin Verified 10/09/21 15:34 irritation Home Medications Medication Instructions Recorded Confirmed Type pregabalin 150 mg capsule (Lyrica) 150 mg PO BID 10/30/18 10/09/21 History insulin aspart U-100 100 unit/mL 30 unit SUBCUT TIDM 01/14/20 10/09/21 History (3 mL) subcutaneous pen (Novolog Flexpen U-100 Insulin aspart) albuterol sulfate 90 mcg/actuation 2 puff INHALATION DIRECTED PRN 11/22/20 10/09/21 History aerosol inhaler ascorbic acid (vitamin C) 500 mg 500 mg PO QAM 11/22/20 10/09/21 History tablet (Vitamin C) atorvastatin 10 mg tablet 10 mg PO QAM 11/22/20 10/09/21 History budesonide 3 mg 3 mg PO QDL 11/22/20 10/09/21 History capsule,delayed,extended release escitalopram oxalate 20 mg tablet 20 mg PO QAM 11/22/20 10/09/21 History (Lexapro) hydrocodone 5 mg-acetaminophen 325 1 tab PO TID 11/22/20 10/09/21 History mg tablet lamotrigine 200 mg tablet 200 mg PO HS 11/22/20 10/09/21 History (Lamictal) multivitamin 1 tab PO QAM 11/22/20 10/09/21 History vqoyre-hpzvawvh-owhjapk 2 cap PO TIDM 01/13/21 10/09/21 History 36,000-114,000-180,000 unit capsule,delay rel (Creon) polysaccharide iron complex 150 mg 150 mg PO QAM 01/13/21 10/09/21 History iron capsule (iFerex 150) budesonide-formoterol HFA 160 2 puff INHALATION BID 03/07/21 10/09/21 History mcg-4.5 mcg/actuation aerosol inhaler (Symbicort) propranolol 10 mg tablet 10 mg PO BID 03/23/21 10/09/21 History ondansetron 4 mg disintegrating 4 mg PO Q6H PRN #14 tab 05/27/21 10/09/21 Rx tablet furosemide 40 mg tablet 40 mg PO DAILY 10/09/21 10/09/21 History insulin glargine 100 unit/mL (3 80 unit SUBCUT BID 10/09/21 10/09/21 History mL) subcutaneous pen (Lantus Solostar U-100 Insulin) rivaroxaban 20 mg tablet (Xarelto) 20 mg PO DAILY 10/09/21 10/09/21 History tiotropium bromide 18 mcg capsule 1 cap INHALATION DAILY 10/09/21 10/09/21 History with inhalation device (Spiriva with HandiHaler) ustekinumab 130 mg/26 mL 90 mg IV .Q8WK 10/09/21 10/09/21 History intravenous solution (Stelara) vitamin A 10,000 unit capsule 0 unit PO DAILY 10/09/21 10/09/21 History Patient History Medical History (Updated 10/12/21 @ 14:26 by Mateus Cruz MD) Abnormal LFTs Asthma Back pain Bipolar 1 disorder Clostridium difficile infection Crohn disease Diabetes DVT (deep venous thrombosis) Hyperglycemia Left flank pain LLQ abdominal pain No pertinent family history NINFA (obstructive sleep apnea) 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 difficile Ulcerative colitis Surgical History History of colectomy Family History Other Family history non-contributory Social History Smoking Status: Former smoker Tobacco Type: Cigarettes Do You Dip or Chew Tobacco: No; Hx Alcohol Use: No Hx Substance Use: No Preferred Language: Nepali Communication Ability: Effective 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 Beliefs That Will Affect Care: None Current Living Situation: Family Current Living Situation Comment: lives with daughter and two grandkids Other Information That Helps Us Care for You: No Feels Safe at Home: Yes Safety Concerns: Feels Safe At This Time Assistive Devices: CPAP and Oxygen - at Night Review of Systems Constitutional: no fever, no chills and no weight loss Eyes: as per Subjective / HPI Ear, Nose, Mouth, Throat: as per Subjective / HPI Respiratory: no dyspnea and no dyspnea on exertion Cardiovascular: no chest pain and no palpitations Gastrointestinal: as per Subjective / HPI Musculoskeletal: no joint pain and no swelling Integumentary: no rash and no lesions Neurologic: no numbness and no paresthesia Psychiatric: no depression and no anxiety Endocrine: no fatigue Hematologic / Lymphatic: no easy bleeding and no easy bruising Physical Exam Constitutional: WD/WN, vitals as above Eyes: EOM intact bilaterally Neck: normal visual inspection Respiratory: normal respiratory effort, lungs clear to auscultation Cardiovascular: RRR, no murmur, no edema Gastrointestinal (Abdomen): Inspection/Auscultation: abdomen normal to inspection; abdomen not distended Percussion/Palpation: abdomen soft; abdomen nontender and no hepatosplenomegaly Musculoskeletal: Extremities: no cyanosis Gait: normal gait Skin: no rashes, warm and dry Neurologic: moves all extremities Psychiatric: A+Ox3, euthymic affect Results & Data ([facility]) Vital Signs (Past 12 Hours) Vital Signs Temp Pulse Resp BP Pulse Ox 04/23/22 14:06 36.8 C 81 16 134/75 95 10/12/21 07:36 36.6 C 69 18 128/74 97 10/12/21 02:39 16 93 PG Care Time/CCT Total # of Minutes Spent Total Time Spent with Patient: Total time spent is greater than 50% in coordination of care (as documented) at patient's floor/unit and/or counseling patient: Coding Level of Care Code 55351 Inpt Consult Level 4 Diagnoses Crohn disease K50.90 Edema R60.9
[2021-10-12 14:47] LABS: Appearance Urine Clear (Clear); Bilirubin Urine Negative (Negative); Blood Urine Negative (Negative); Color Urine Yellow; Glucose Urine UA Negative (Negative); Ketones Urine Negative (Negative); Leukocyte Esterase Urine Negative (Negative); Nitrite Urine Negative (Negative); Protein Urine Negative (Negative); Specific Gravity Urine 1.015 (1.000-1.030); Urobilinogen Urine Negative (Negative)
[2021-10-12] MEDS: oxyCODONE HCL IR 5 MG TAB (IMMEDIATE RELEASE) PO PRN (18:29)
[2021-10-12] MEDS: lamoTRIgine 100 MG TAB PO SCH (21:35)
[2021-10-12] MEDS: CYCLOBENZAPRINE HCL 5 MG TAB PO PRN (22:25)
[2021-10-13 05:56] LABS: Bilirubin Direct 0.1 mg/dl (0-0.2); Calcium 9.2 mg/dl (8.5-10.1); Creatinine Clr Calc Pharmacy 108.1 ml/min; Est GFR (African American) 107.3 ml/min; Est GFR (Non-African American) 92.6 ml/min; Potassium 3.7 mmol/L (3.5-5.1); Total Protein 7.5 gm/dl (6.0-8.3)
[2021-10-13 06:42] LABS: Hemoglobin 13.6 g/dL (12.0-16.0); Mean Corpuscular Hemoglobin 29.8 pg (25-34); Mean Corpuscular Volume 87.5 fL (80-100); Mean Platelet Volume 9.2 fL (7.4-10.4); Platelet Count 144 K/uL (130-400); RDW Coefficient of Variation 14.4 % (11.5-14.5); RDW Standard Deviation 46.2 fL (36.4-46.3); Red Blood Count 4.57 M/uL (4.2-5.4); White Blood Count 9.25 K/uL (4.8-10.8)
--- NOTE | 2021-10-13 08:04 | Hospitalist Progress Note ---
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, but ACTH level sent Recently hospitalized at [facility] edema/back/leg pain which improved, then was discharged and started swelling --> Given lasix by her PCP for swelling with improvement but then returned again --> ALso, recently started on Stelara for her Crohns, approximately 2 weeks ago She had been given prednisone taper for Crohns flare in July from this hospital, denies any other use of steroids, but had been placed on budesonide by her primary care 3 months ago for her asthma which is likely contributing Hold PO budesonide, as likely offending agent Random and AM cortisol without significant abn Urine cr acceptable, elevated total protein random urine. Not c/w nephrotic syndrome ECHO with LV systolic function normal, normal diastolic function. RVSP normal TSH wnl, Ft4, t3 wnl Given lasix 40mg IV lasix x 2 on admission, repeat 20mg IV 10/11 and scheduled 40mg PO moving forward --> Edema improved to LE but still present UE --NOW increased to LE 10/12 Wt decreased 112kg but unchanged today Given 40mg PO lasix this morning, but will change to 1mg Bumex at nephrology rec and monitor response. Can increase if needed Venous Doppler UE * -- Nonocclusive thrombus in the distal right jugular vein. Diminutive size versus thrombus in the right innominate and bilateral subclavian veins. Otherwise no deep venous thrombi are seen in the bilateral extremities. * Consider check venogram neck, but reported improvement of swelling 10/10 but now increased swelling again and will order Remains on Xarelto Rec'd CHF clinic follow up/low salt diet/daily weight monitoring Per nephro, can consider 24hr urine for cr and Na and rec low salt diet. Order placed Also reported headache for past four months along with associated blurry vision and reported never had imaging of brain --> Will check CT head, as well as venogram chest to eval for increased UE swelling --> No mass/lesion but unable to eval for pituitary lesion and will check MRI brain w/wo as well as cervical spine given increased swelling and radiculopathy symptoms ACTH pending (2) Back pain: Plan: Chronic with L5-S1 fusion Recently with increased L low back pain and symptoms suggesting worsening of chronic back issues. Discussed obtaining imaging, she actually had repeat imaging of thoracic/lumbar spine at [facility] which indicated impingement of exiting nerve roots and central canal stenosis at L4/L5/S1 regiong. --> She states her spine surgeon in [place] had office call to set up appointment for follow up care regarding these findings. Given morphine IV 10/10, seems to be more comfortable today with less edema to LE/sacrum --> discussed can try increasing her lyrica to TID dosing and would avoid IV narcotics if possible. --> agreeable, increased to 150mg TID Try dose flexeril x 1, if effective can consider cautious use for breakthrough. Has not been using prn oxycodone due to report of feeling like people are judging her Voltaren gel as needed Hydrocodone available as taking at home UA negative for infection/UTI, however reports foul smelling urine today and will repeat. Requesting records for [facility] spine where she had recent CT lumbar spine showing significant abnormality (report on her phone if needed sooner) --> Will consult Dr Jones at patient request, likely not to be seen until tomorrow (3) Ulcerative colitis: Plan: She is on Stelara and budesonide - Hold budesonide as above - She received her Stelara last week, recently started this medication 2 weeks ago (previously on Humira in past) F/u GI at d/c -- of note, she stated always issues with diarrhea and was given opiates in past to slow this, but hasn't been on in some time GI consultation given recent initiation of Stelara and ? if related (4) Hypercalcemia: Plan: Ca 10.5 on admission PTH wnl, checked Vit D level -- low at 28 Diuretics as above, repeat Ca 9.3 (albumin 4.0) ?primary hyperparathyroidism, ?need for f/u endocrinology at discharge for pos sible sergio syndrome as well MRI brain as above for today (5) Lower extremity edema: Plan: As above Lasix 40mg IV x 2 given, continue usual dose (given 20mg IV lasix 10/10, resumed 40mg PO daily) D/c'd rosas as placed in ER CTAP without mass/other pathology Improved 10/11, increased 10/12 and switching to bumex 1mg daily and monitor response (6) DVT (deep venous thrombosis): Plan: Original right IJ 2001 - noted on her recent CTA of the chest - Continue her Xarelto- as above for further eval (7) Asthma: Plan: Chronic- well controlled on current therapy - Continue EARL - Continue symbicort - Hold oral budesonide given swelling. Breathing stable 97% on RA (8) NINFA (obstructive sleep apnea): Plan: CPAP 11CM H20 with 2LNC - she voices compliance Ordered for HS, and has utilized (9) Diabetes: Plan: Continue her 80 mg lantus BID Aspart sliding scale with CF 20 and carb ration 1:9 BSGs acceptable (10) Bipolar 1 disorder: Plan: Continue Lomotrigine, lexapro (11) Morbid obesity: Plan: encourage weight loss/dietary changes Plan: continued inpatient stay Admission and Anticipated Discharge Date Admission Date: October 09, 2021 Results & Data Results & Data ([facility]) Vital Signs (Past 12 Hours) Vital Signs Temp Pulse Pulse Resp BP Pulse Ox 10/13/21 06:52 36.4 C L 78 16 125/75 97 10/13/21 03:30 18 10/12/21 23:50 36.6 C 78 18 129/84 100 10/12/21 21:33 81 114/78 10/12/21 21:00 19 Laboratory Results 10/13/21 10/13/21 10/12/21 Range/Units 05:14 05:14 21:30 WBC 9.25 (4.8-10.8) K/uL RBC 4.57 (4.2-5.4) M/uL Hgb 13.6 (12.0-16.0) g/dL Hct 40.0 (37-47) % MCV 87.5 (80-100) fL MCH 29.8 (25-34) pg MCHC 34.0 (32-36) g/dL RDW Std Deviation 46.2 (36.4-46.3) fL RDW Coeff of Anna 14.4 (11.5-14.5) % Plt Count 144 (130-400) K/uL MPV 9.2 (7.4-10.4) fL Sodium 136 (136-145) mmol/L Potassium 3.7 (3.5-5.1) mmol/L Chloride 100 (98-107) mmol/L Carbon Dioxide 29 (21-32) mmol/L Anion Gap 7 (3-11) BUN 20 (6-23) mg/dl Creatinine 0.77 (0.6-1.2) mg/dl Est Cr Clr Drug Dosing 108.1 ml/min Est GFR ( Amer) 107.3 ml/min Est GFR (Non-Af Amer) 92.6 ml/min BUN/Creatinine Ratio 26.0 H (10-20) Glucose 196 H (70-99(Fasting)) mg/dl POC Glucose 192 H (70-99) mg/dl Calcium 9.2 (8.5-10.1) mg/dl Total Bilirubin 1.0 (0.2-1.0) mg/dl Direct Bilirubin 0.1 (0-0.2) mg/dl AST 53 H (13-39) U/L ALT 65 H (7-52) U/L Alkaline Phosphatase 107 H (34-104) U/L Total Protein 7.5 (6.0-8.3) gm/dl Albumin 4.0 (3.4-5.0) gm/dl Urine Color Urine Appearance (Clear) Urine pH (4.5-7.5) Ur Specific Sparks (1.000-1.030) Urine Protein (Negative) Urine Glucose (UA) (Negative) Urine Ketones (Negative) Urine Blood (Negative) Urine Nitrite (Negative) Urine Bilirubin (Negative) Urine Urobilinogen (Negative) Ur Leukocyte Esterase (Negative) Anaplasma Smear Lyme Disease IgG Ab (Negative) Lyme Disease IgM Ab (Negative) 10/12/21 10/12/21 10/12/21 Range/Units 17:02 14:25 13:14 WBC (4.8-10.8) K/uL RBC (4.2-5.4) M/uL Hgb (12.0-16.0) g/dL Hct (37-47) % MCV (80-100) fL MCH (25-34) pg MCHC (32-36) g/dL RDW Std Deviation (36.4-46.3) fL RDW Coeff of Anna (11.5-14.5) % Plt Count (130-400) K/uL MPV (7.4-10.4) fL Sodium (136-145) mmol/L Potassium (3.5-5.1) mmol/L Chloride (98-107) mmol/L Carbon Dioxide (21-32) mmol/L Anion Gap (3-11) BUN (6-23) mg/dl Creatinine (0.6-1.2) mg/dl Est Cr Clr Drug Dosing ml/min Est GFR ( Amer) ml/min Est GFR (Non-Af Amer) ml/min BUN/Creatinine Ratio (10-20) Glucose (70-99(Fasting)) mg/dl POC Glucose 207 H 147 H (70-99) mg/dl Calcium (8.5-10.1) mg/dl Total Bilirubin (0.2-1.0) mg/dl Direct Bilirubin (0-0.2) mg/dl AST (13-39) U/L ALT (7-52) U/L Alkaline Phosphatase (34-104) U/L Total Protein (6.0-8.3) gm/dl Albumin (3.4-5.0) gm/dl Urine Color Yellow Urine Appearance Clear (Clear) Urine pH 5.0 (4.5-7.5) Ur Specific Sparks 1.015 (1.000-1.030) Urine Protein Negative (Negative) Urine Glucose (UA) Negative (Negative) Urine Ketones Negative (Negative) Urine Blood Negative (Negative) Urine Nitrite Negative (Negative) Urine Bilirubin Negative (Negative) Urine Urobilinogen Negative (Negative) Ur Leukocyte Esterase Negative (Negative) Anaplasma Smear Lyme Disease IgG Ab (Negative) Lyme Disease IgM Ab (Negative) 10/12/21 10/12/21 10/12/21 Range/Units 09:18 09:18 09:18 WBC (4.8-10.8) K/uL RBC (4.2-5.4) M/uL Hgb (12.0-16.0) g/dL Hct (37-47) % MCV (80-100) fL MCH (25-34) pg MCHC (32-36) g/dL RDW Std Deviation (36.4-46.3) fL RDW Coeff of Anna (11.5-14.5) % Plt Count (130-400) K/uL MPV (7.4-10.4) fL Sodium (136-145) mmol/L Potassium (3.5-5.1) mmol/L Chloride (98-107) mmol/L Carbon Dioxide (21-32) mmol/L Anion Gap (3-11) BUN (6-23) mg/dl Creatinine (0.6-1.2) mg/dl Est Cr Clr Drug Dosing ml/min Est GFR ( Amer) ml/min Est GFR (Non-Af Amer) ml/min BUN/Creatinine Ratio (10-20) Glucose (70-99(Fasting)) mg/dl POC Glucose (70-99) mg/dl Calcium (8.5-10.1) mg/dl Total Bilirubin 1.3 H (0.2-1.0) mg/dl Direct Bilirubin 0.1 (0-0.2) mg/dl AST 63 H (13-39) U/L ALT 69 H (7-52) U/L Alkaline Phosphatase 102 (34-104) U/L Total Protein 7.5 (6.0-8.3) gm/dl Albumin 3.9 (3.4-5.0) gm/dl Urine Color Urine Appearance (Clear) Urine pH (4.5-7.5) Ur Specific Sparks (1.000-1.030) Urine Protein (Negative) Urine Glucose (UA) (Negative) Urine Ketones (Negative) Urine Blood (Negative) Urine Nitrite (Negative) Urine Bilirubin (Negative) Urine Urobilinogen (Negative) Ur Leukocyte Esterase (Negative) Anaplasma Smear See Comment Lyme Disease IgG Ab Negative (Negative) Lyme Disease IgM Ab Negative (Negative) Diagnostic Findings Brain MRI 10/12/21 09:37 Brain and pituitary MRI WITH AND WITHOUT CONTRAST HISTORY: Dizziness. Right-sided numbness. eval for pituitary lesion TECHNIQUE: Multiplanar multisequence MRI of the brain was performed both before and after the intravenous administration of contrast. COMPARISON STUDY: None. FINDINGS: There are no areas of restricted diffusion to suggest acute infarction. The pituitary gland is normal in size. The pituitary stalk is normal in caliber. There is a small hypointense focus within the mid aspect of the pituitary gland measuring approximately 3 mm. This favors an area of scarring or calcification. A microadenoma is considered less likely but not entirely excluded. Therefore, 6-12 month MRI follow-up recommended to ensure stability of this finding. Moderate mucosal thickening and a fluid level within the sphenoid sinuses resulting in near complete opacification. Mild bilateral proptosis again noted. There are few scattered punctate foci of T2 hyperintensity seen within the bilateral frontal and parietal lobes. Remaining brain parenchyma demonstrates a normal signal intensity. The mastoid air cells are clear. The ventricles and sulci are within normal limits for age. There is no mass, hematoma, midline shift. The major vascular flow-voids at the skull base are well maintained. Postcontrast sequences show no areas of abnormal enhancement. IMPRESSION: 1. There is a small hypointense focus within the mid aspect of the pituitary gland measuring approximately 3 mm. This favors an area of scarring or calcification. A microadenoma is considered less likely but not entirely excluded. Therefore, 6-12 month MRI follow-up recommended to ensure stability of this finding. 2. No acute intracranial abnormality. 3. A few scattered T2 hyperintense foci within the white matter of the left frontal and parietal lobes which are nonspecific. This can be seen in the setting of mild microvascular ischemic change, migraines, or less likely a demyelinating process. ACT 112: Negative or not required by law. Electronically signed by: Patricio Mcintosh M.D. 10/12/2021 1:01 PM Cervical Spine MRI 10/12/21 09:43 MRI OF THE CERVICAL SPINE WITH AND WITHOUT CONTRAST CLINICAL HISTORY: Upper extremity edema, r/o mass, ?cervical radiculopathy COMPARISON: None TECHNIQUE: Utilizing a 1.5 Abbie magnet and dedicated coil, multiplanar, multiecho imaging of the cervical spine was performed before and after intravenous administration of 11 of Gadavist. FINDINGS: There is straightening of the normal cervical lordosis. Vertebral body heights are maintained. There is no suspicious marrow replacement. No marrow edema is present. Cervical cord signal and caliber are normal. No intracanalicular mass or fluid collection. No abnormal enhancement within the cervical canal is present. Paravertebral soft tissues are unremarkable. Sphenoid sinus also thickening and fluid is present. C2-C3: The central canal and neural foramen are patent C3-C4: The central canal and neural foramen are patent. C4-C5: Small right paracentral disc osteophyte complex is noted which slightly indents the ventral aspect of the cord. There is mild to moderate central canal narrowing. Mild to moderate right neural foraminal narrowing is noted due to uncovertebral hypertrophy and facet arthrosis. There is mild narrowing of the left neural foramen. C5-C6: Left paracentral disc osteophyte complex indents the left ventral aspect of the cord. There is moderate narrowing of the canal. Neural foramen are patent. C6-C7: Central canal and neural foramen are patent. C7-T1: Central canal and neural foramen are patent. IMPRESSION: 1. Left paracentral disc osteophyte complex at C5-C6 that indents the left ventral aspect of the cord and results in moderate central canal narrowing. Normal cervical cord signal and caliber. 2. Small right paracentral disc osteophyte complex at C4-C5 which results in mild to moderate central canal narrowing. 3. Mild to moderate multilevel neural foraminal narrowing, as above. ACT 112: Negative or not required by law. Electronically signed by: Jose Grey M.D. 10/12/2021 12:59 PM Renal Ultrasound 10/12/21 09:50 RENAL ULTRASOUND HISTORY: L back CVA tenderness COMPARISON: Abdomen and pelvis CT 10/09/2021. FINDINGS: Right kidney: 11.5 cm. No hydronephrosis. Normal corticomedullary differentiation and cortical thickness. Left kidney: 12.3 cm. No hydronephrosis. Normal corticomedullary differentiation and cortical thickness. Bladder: No bladder wall thickening. The bilateral ureteral jets were identified. Questional small left ureterocele. IMPRESSION: 1. No hydronephrosis. 2. Questionable small left ureterocele. ACT 112: Negative or not required by law. Electronically signed by: Patricio Mcintosh M.D. 10/12/2021 1:07 PM PG Care Time/CCT Total # of Minutes Spent Total Time Spent with Patient: Total time spent is greater than 50% in coordination of care (as documented) at patient's floor/unit and/or counseling patient: Coding Diagnoses Edema of face R60.0 Back pain M54.9 Ulcerative colitis K51.80 Digestive disease complication type: without complication Ulcerative colitis location: other ulcerative colitis Hypercalcemia E83.52 Lower extremity edema R60.0 DVT (deep venous thrombosis) I82.409 Asthma J45.909 NINFA (obstructive sleep apnea) G47.33 Diabetes E11.9 Bipolar 1 disorder F31.9 Morbid obesity E66.01 (1) Ulcerative colitis Digestive disease complication type: without complication Ulcerative colitis location: other ulcerative colitis Qualified Code(s): K51.80 - Other ulcerative colitis without complications
[2021-10-13] MEDS: LIDOCAINE 5% 1 PATCH TD SCH (08:49)
[2021-10-13] MEDS: ESCITALOPRAM OXALATE 20 MG TAB PO SCH (08:50)
[2021-10-13] MEDS: PROPRANOLOL HCL 10 MG TAB PO SCH (08:50)
[2021-10-13] MEDS: PANCREAZE (LIPASE 10,500U) CAP PO SCH ×2 (08:50→13:28)
[2021-10-13] MEDS: PREGABALIN 150 MG CAP PO SCH ×2 (08:51→13:32)
[2021-10-13] MEDS: UMECLIDINIUM BROMIDE 62.5MCG/BLISTER 7 PUFFS/INHALER INH SCH (08:51)
[2021-10-13] MEDS: HYDROCODONE/ACETAMOPHEN 5/325MG TAB PO SCH ×2 (08:51→14:06)
[2021-10-13] MEDS: RIVAROXABAN 20 MG TAB PO SCH (08:51)
[2021-10-13] MEDS: FLUTICASONE/VILANTEROL 200/25MCG 14 PUFFS/INHALER INH SCH (08:52)
[2021-10-13] MEDS: INSULIN GLARGINE 100 UNIT/ML VIAL SQ SCH (08:53)
[2021-10-13] MEDS: INSULIN ASPART PER UNIT SC SCH ×2 (08:53→13:33)
[2021-10-13] MEDS ORDERED: BUMETANIDE 1 MG TAB PO SCH (09:00)
--- NOTE | 2021-10-13 09:08 | Discharge Summary ---
Date of Service October 13, 2021 Admission HPI Per Admitting Provider 45 YOF with medical history of: Chron's disease, DMII, IJ thrombus( chronic), bipolar, NINFA, Asthma, L5-S1 fusion with neuropathy, chronic pain. Patient PCP is Dr. Garcia in [place]. She receives most of her care at [facility]. Patient comes in to the EMD today for complaints of back pain and increase in swelling/edema to her face, chest, and legs- the patient was recently discharged from [facility] where she went for the above symptoms previously. While she was there she had MRI of spine performed, CTA of the chest, Ultrasound of her bilateral lower extremities, and ECHO done as well as d iuresed with IV diuretics. She has all this on her phone and is viewable with her. 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 She felt better upon discharge and over the past few days she had an increase in the swelling of her face, lower extremities, as well as feeling like she can't void. She endorses that she feels the need to urinate but can not and voids one time per day with small amounts. She endorses that she does not eat allot of salt and did have her diuretic increased when she called her PCP over past few days with no resolution. In the EMD the patient had routine blood work done to include TSH, HScTNI, and BNP, UA and CT of the abdomen and pelvis completed. She was given pain medication in the form of IV morphine and 40mg IV Lasix for her edema. The hospitalist service was consulted for admission. Patient labs reviewed- negative HScTNI and BNP, mild hypercalcemia, hypomag, elevated LFT, and normal TSH. UA likely contaminant and trace protein without blood. Patient will be admitted on medical floor, continue to diurese and further workup her symptomatology and treatment plan. Overall the patient has increase in facial edema and chin edema over the past 6 months, she has insulin resistance on multiple agents, is on oral budesonide for her asthma that was recently started ~ 3 months prior. Her edema in her legs is soft pitting more so along her shins. ECHO reviewed from [facility] which was interpreted there as LV thickness with borderline LVH, dilated left atrium and elevated left atrial pressure, EF 60-65% and normal RV. Her duplex study was also negative for DVT. She has enlarged neck with difficult to palpate thyroid, and fatpad of the back of the neck. Don't at this time this is primarly cardiac in nature, however will obtain ECHO in morning for review by our staff and await test results. COVID and Influenza A/B test on admission is: NEGATIVE Admission Exam Per Admitting Provider PHYSICAL EXAM: General: awake, alert, no apparent distress Head: round kaba face appearance, hump to back of neck, increase swelling of face and neck ENT: PERRL, EOMI, no pharyngeal exudate, mucous membranes moist Neuro: AAO x 3, speech clear and appropriate, strength intact bilaterally 5/5, sensation intact and equal all extremities and dermatomes, no pronator drift Chest: equal rise and fall of the chest, no accessory muscle use, no heaves or thrills, Clear to auscultation, on room air, Cardiac: Regular rate and rhythm, telemetry reviewed, skin warm dry, cap refill <3 seconds, peripheral pulses +2 no JVD, no murmur, edema to shoulders/face/lower extremity up to knee and hips, arm numbnesstngling with elevation of arm above head GI: NABS x 4 quadrants, soft, nontender to palpation, no rebound, guarding or tenderness : feeling of incomplete bladder emptying Psych: Normal mood and affect Skin: no rash or erythema Principal Diagnosis Generalized Edema Discharge Exam General: WD/WN obese female, older appearing than stated age, sitting up at side of the bed, dressed, much more comfortable appearing and stating she would like to go home Eyes: anicteric, pupils equal/reactive to light but slightly bulging ENT: mmm, trachea midline without deviation, thickened neck, no appreciable thyromegaly, buffalo hump, acanthosis nigricans appearance to neck Resp: CTAB, diminished in the bases, no wheezing/crackles, on room air CV: RRR, no m/r/g, no calf tenderness, no JVD, slight non-pitting edema to face/shoulders/arms, trace pitting edema b/l LE L>R pre-tibial edema GI: +BS, soft, non-tender MSK/Neuro: +L straight leg raise, L paraspinal muscle tenderness left lower back, decreased strength plantar/dorsiflexion on the left compared to the right, pulses palpable : NO OLSON Psych: alert, oriented to person/place/time, cooperative and calm Discharge Data Allergies Allergy/AdvReac Type Severity Reaction Status Date / Time nickel Allergy Mild Skin Verified 10/09/21 15:34 irritation Consultations 10/09/21 16:50 ED Decision to Admit Stat 10/10/21 13:18 Consult Health Information Management Routine 10/10/21 15:59 Consult Nephrology Routine 10/11/21 16:17 Consult Gastroenterology Routine 10/12/21 09:39 Consult Health Information Management Routine 10/12/21 09:43 Consult Orthopedic Surgery Routine 10/12/21 13:26 Consult Urology Routine 10/12/21 13:38 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 Automated dose lowering techniques and/or adjustment according to patient size were utilized for this exam. This exam was performed without intravenous contrast. COMPARISON: Comparison is made to CT abdomen pelvis 05/27/2021 FINDINGS: Lower chest: Bibasilar atelectasis versus scarring is seen. Liver: Hepatic steatosis is noted. Gallbladder and biliary tree: Patient is status post cholecystectomy. No intra- or extrahepatic biliary ductal dilation. Pancreas: Unremarkable, no focal lesions. Spleen: Unremarkable. Adrenals: Unremarkable. Kidneys and ureters: Unremarkable. Bladder: Unremarkable. Reproductive organs: Patient is status post hysterectomy. Bowel: Patient is status post colonic resection. Lymph nodes Retroperitoneal: Unremarkable. Mesenteric: Unremarkable. Pelvic: Unremarkable. Peritoneum: Normal. Vessels: Unremarkable. Abdominal wall: Infraumbilical hernia is noted containing only fat. Postsurgical changes are seen in the midline. Bones: Posterior fixation hardware is seen in degenerative changes are seen. IMPRESSION: No evidence of nephrolithiasis or hydronephrosis. No acute abnormality is seen in particular no evidence of bowel wall thickening to suggest active Crohn's disease. Postsurgical changes of colonic resection are seen. ACT 112: Negative or not required by law. Electronically signed by: Damon Harden M.D. 10/09/2021 3:08 PM Chest X-Ray 10/09/21 13:03 XR chest 1V portable CLINICAL HISTORY: poss chf TECHNIQUE: Single frontal radiograph of the chest was obtained. Comparison: Comparison is made to chest one view 06/06/2021 FINDINGS: Exam is limited by underpenetration. The cardiomediastinal silhouette is stable. There is questionable blunting of the left costophrenic angle. No pneumothorax is seen, pleural effusions cannot be excluded. IMPRESSION: Blunting of the left costophrenic angle may represent small pleural effusion or atelectasis, pneumonia, and/or aspiration. Otherwise no acute abnormalities and in particular no evidence of CHF. ACT 112: Negative or not required by law. Electronically signed by: Damon Harden M.D. 10/09/2021 1:33 PM Venous Doppler Study 10/09/21 18:52 US venous doppler UE BI CLINICAL HISTORY: clot in right IJ with swelling to face PROCEDURE: Right upper extremity real-time compression venous ultrasound with Duplex and Color Doppler imaging. FINDINGS: Utilizing real-time ultrasonic imaging multiple real time high-resolution ultrasonic images of the deep venous system were performed from the forearm through the subclavian vein including evaluation of the jugular vein. Compression real time ultrasonic imaging was performed in addition to color Doppler imaging and duplex Doppler ultrasound with velocity spectral profile analysis. There is a nonocclusive thrombus in the distal right internal jugular vein. The right innominate and subclavian veins as well as the left subclavian vein are not well visualized, there may be diminutive or there may be a thrombus. The right axillary vein appears patent. No deep venous thrombus is seen in the remainder of the bilateral upper extremities. Impression: Nonocclusive thrombus in the distal right jugular vein. Diminutive size versus thrombus in the right innominate and bilateral subclavian veins. Otherwise no deep venous thrombi are seen in the bilateral extremities. ACT 112: Negative or not required by law. Electronically signed by: Damon Harden M.D. 10/09/2021 8:53 PM 10/10/21 ECHOCARDIOGRAM -Technically difficult study. LV systolic function is normal. Normal diastolic function. RV is normal in size and function. RVSP is normal. Head CT 10/11/21 13:21 CT head/brain wo/w con CLINICAL HISTORY: headaches, blurry vision, ?cushings COMPARISON STUDY: No previous studies for comparison. TECHNIQUE: Axial images of the head were obtained before and after intravenous demonstration of 120 cc of Optiray 320 IV. Automated exposure control was utilized for the study. A dose lowering technique was utilized adhering to the principles of ALARA. FINDINGS: No acute intracranial hemorrhage, midline shift or mass effect is present. Ventricular system is normal. Basal cisterns are patent. There are no extra-axial collections. No findings to suggest acute dural sinus thrombosis or acute territorial infarct. No intracranial mass or pathologic enhancement is noted. Sensitivity for detection of pituitary masses is significantly diminished given CT technique. Right sphenoid sinus is largely opacified. There are no calvarial abnormalities. There may be mild bilateral proptosis. IMPRESSION: 1. No acute intracranial findings. 2. No intracranial masses identified although sensitivity for detection of pituitary lesions significantly decreased given CT technique. If indicated, MRI could be obtained. 3. Largely opacified right sphenoid sinus. 4. Possible mild bilateral proptosis. ACT 112: Negative or not required by law. Electronically signed by: Jose Grey M.D. 10/11/2021 3:[address] 10/11/21 13:25 CT VENOGRAPHY OF THE CHEST CLINICAL HISTORY: Upper extremity edema. Evaluate for obstruction. COMPARISON STUDY: Chest CT May 27, 2021. Chest radiograph October 09, 2021. Bilateral upper extremity venous Doppler ultrasound October 09, 2021. TECHNIQUE: Helical axial images of the chest were obtained during venous phase following intravenous injection of 120 cc Optiray 320 IV. Sagittal and coronal reconstructions were viewed as well as maximal intensity projections. Automated exposure control was utilized for the study. A dose lowering technique was utilized adhering to the principles of ALARA. FINDINGS: The bilateral internal jugular veins are diminutive and not well visualized on this exam. The right brachiocephalic vein is also small. The left brachiocephalic vein is patent. SVC is patent. Mild cardiomegaly is noted. Is no pericardial effusion. No enlarged thoracic lymph nodes are present. Pulmonary arteries are suboptimally assessed on this exam. No central pulmonary embolus is present. No pneumothorax or pleural effusion is noted. Bilateral subpleural lower lobe airspace opacities are present. Significant improvement in the lungs is noted compared to chest CT of May 27, 2021. Right middle lobe and lingular opacities reflect atelectasis. There is no pneumothorax or pleural effusion. Hepatic steatosis is noted. There is mild splenomegaly. A 1.8 cm right adrenal nodule is unchanged from earlier exams. Gallbladder is surgically absent. IMPRESSION: 1. Patent SVC and left brachiocephalic vein. Diminutive bilateral internal jugular and right brachiocephalic veins which are suboptimally assessed on this exam. 2. Bilateral lower lobe subpleural opacities which favor atelectasis although an infectious process could appear similar. ACT 112: Negative or not required by law. Electronically signed by: Jose Grey M.D. 10/11/2021 4:06 PM Brain MRI 10/12/21 09:37 Brain and pituitary MRI WITH AND WITHOUT CONTRAST HISTORY: Dizziness. Right-sided numbness. eval for pituitary lesion TECHNIQUE: Multiplanar multisequence MRI of the brain was performed both before and after the intravenous administration of contrast. COMPARISON STUDY: None. FINDINGS: There are no areas of restricted diffusion to suggest acute infarction. The pituitary gland is normal in size. The pituitary stalk is normal in caliber. There is a small hypointense focus within the mid aspect of the pituitary gland measuring approximately 3 mm. This favors an area of scarring or calcification. A microadenoma is considered less likely but not entirely excluded. Therefore, 6-12 month MRI follow-up recommended to ensure stability of this finding. Moderate mucosal thickening and a fluid level within the sphenoid sinuses resulting in near complete opacification. Mild bilateral proptosis again noted. There are few scattered punctate foci of T2 hyperintensity seen within the bilateral frontal and parietal lobes. Remaining brain parenchyma demonstrates a normal signal intensity. The mastoid air cells are clear. The ventricles and sulci are within normal limits for age. There is no mass, hematoma, midline shift. The major vascular flow-voids at the skull base are well maintained. Postcontrast sequences show no areas of abnormal enhancement. IMPRESSION: 1. There is a small hypointense focus within the mid aspect of the pituitary gland measuring approximately 3 mm. This favors an area of scarring or calcification. A microadenoma is considered less likely but not entirely excluded. Therefore, 6-12 month MRI follow-up recommended to ensure stability of this finding. 2. No acute intracranial abnormality. 3. A few scattered T2 hyperintense foci within the white matter of the left frontal and parietal lobes which are nonspecific. This can be seen in the setting of mild microvascular ischemic change, migraines, or less likely a demyelinating process. ACT 112: Negative or not required by law. Electronically signed by: Patricio Mcintosh M.D. 10/12/2021 1:01 PM Cervical Spine MRI 10/12/21 09:43 MRI OF THE CERVICAL SPINE WITH AND WITHOUT CONTRAST CLINICAL HISTORY: Upper extremity edema, r/o mass, ?cervical radiculopathy COMPARISON: None TECHNIQUE: Utilizing a 1.5 Abbie magnet and dedicated coil, multiplanar, multiecho imaging of the cervical spine was performed before and after intravenous administration of 11 of Gadavist. FINDINGS: There is straightening of the normal cervical lordosis. Vertebral body heights are maintained. There is no suspicious marrow replacement. No marrow edema is present. Cervical cord signal and caliber are normal. No intracanalicular mass or fluid collection. No abnormal enhancement within the cervical canal is present. Paravertebral soft tissues are unremarkable. Sphenoid sinus also thickening and fluid is present. C2-C3: The central canal and neural foramen are patent C3-C4: The central canal and neural foramen are patent. C4-C5: Small right paracentral disc osteophyte complex is noted which slightly indents the ventral aspect of the cord. There is mild to moderate central canal narrowing. Mild to moderate right neural foraminal narrowing is noted due to uncovertebral hypertrophy and facet arthrosis. There is mild narrowing of the left neural foramen. C5-C6: Left paracentral disc osteophyte complex indents the left ventral aspect of the cord. There is moderate narrowing of the canal. Neural foramen are patent. C6-C7: Central canal and neural foramen are patent. C7-T1: Central canal and neural foramen are patent. IMPRESSION: 1. Left paracentral disc osteophyte complex at C5-C6 that indents the left ventral aspect of the cord and results in moderate central canal narrowing. Normal cervical cord signal and caliber. 2. Small right paracentral disc osteophyte complex at C4-C5 which results in mild to moderate central canal narrowing. 3. Mild to moderate multilevel neural foraminal narrowing, as above. ACT 112: Negative or not required by law. Electronically signed by: Jose Grey M.D. 10/12/2021 12:59 PM Renal Ultrasound 10/12/21 09:50 RENAL ULTRASOUND HISTORY: L back CVA tenderness COMPARISON: Abdomen and pelvis CT 10/09/2021. FINDINGS: Right kidney: 11.5 cm. No hydronephrosis. Normal corticomedullary differentiation and cortical thickness. Left kidney: 12.3 cm. No hydronephrosis. Normal corticomedullary differentiation and cortical thickness. Bladder: No bladder wall thickening. The bilateral ureteral jets were identified. Questional small left ureterocele. IMPRESSION: 1. No hydronephrosis. 2. Questionable small left ureterocele. ACT 112: Negative or not required by law. Electronically signed by: Patricio Mcintosh M.D. 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, ACTH level sent Recently hospitalized at [facility] edema/back/leg pain which improved, then was discharged and started swelling --> Given lasix by her PCP for swelling with improvement but then returned again --> ALso, recently started on Stelara for her Crohns, approximately 2 weeks ago She had been given prednisone taper for Crohns flare in July from this hospital, denies any other use of steroids, but had been placed on budesonide by her primary care 3 months ago for her asthma which is likely contributing Discontinued PO budesonide, as likely offending agent Random and AM cortisol without significant abn Urine cr acceptable, elevated total protein random urine. Not c/w nephrotic syndrome ECHO with LV systolic function normal, normal diastolic function. RVSP normal TSH wnl, Ft4, t3 wnl Given lasix 40mg IV lasix x 2 on admission, repeat 20mg IV 10/11 and scheduled 40mg PO moving forward --> Edema improved to LE but still present UE --NOW increased to LE 10/12, IMPROVED 10/13 with switch to bumex 1mg and continued this over lasix at discharge Venous Doppler UE * -- Nonocclusive thrombus in the distal right jugular vein. Diminutive size versus thrombus in the right innominate and bilateral subclavian veins. Otherwise no deep venous thrombi are seen in the bilateral extremities. * Remains on Xarelto * Venogram with patent SVC and left brachiocephalic vein. Diminutive bilateral internal jugular and right brachiocephalic veins which are suboptimally assessed Rec'd CHF clinic follow up/low salt diet/daily weight monitoring Per nephro, can consider 24hr urine for cr and Na and rec low salt diet. Order placed and sent prior to d/c. Results pending and can have outpt f/u MRI brain obtained for eval adenoma --> There is a small hypointense focus within the mid aspect of the pituitary gland measuring approximately 3 mm. This favors an area of scarring or calcification. A microadenoma is considered less likely but not entirely excluded. Therefore, 6-12 month MRI follow-up recommended to ensure stability of this finding. ACTH pending at discharge --> also reported scattered hyperintense foci, discussed with Neuro given concerns for possible underlying demyelinating process, did not felt significant Outpatient EMG testing rec'd for eval neuropathy -> residential supervisor consult placed to have f/u for EMG testing, Endocrinology outpatient followup as well as ortho spine as outlined below (2) Back pain: Chronic with L5-S1 fusion Recently with increased L low back pain and symptoms suggesting worsening of chronic back issues. Discussed obtaining imaging, she actually had repeat imaging of thoracic/lumbar spine at [facility] which indicated impingement of exiting nerve roots and central canal stenosis at L4/L5/S1 regiong. --> She states her spine surgeon in [place] had office call to set up appointment for follow up care regarding these findings. Morphine given for breakthrough pain, does have component of spinal stenosis/narrowing on prior thoracic/lumbar spine imaging Cervical spine performed while inpatient -- see report above Does have significant disease but denied bladder/bowel incontinence and no saddle parasthesias --> Offered consultation with Dr Jones on Thursday but patient had imporvement in pain control with addition of flexeril 5mg BID prn and sent at discharge and can also use lidocaine patch/voltaren gel and heat as needed until seen in follow up with sergio Bobo/Amy [facility] specialist CD burnt with images for patient to take with Renal US performed given L low back pain and reported foul urine. Urine multiple collections, no infection. --Renal US with possible ureterocele, urology reviewed. no stone/need for any further follow up regarding such (3) Ulcerative colitis: She is on Stelara and budesonide - Hold budesonide as above, d/c at discharge - She received her Stelara last week, recently started this medication 2 weeks ago (previously on Humira in past) F/u GI at d/c -- of note, she stated always issues with diarrhea and was given opiates in past to slow this, but hasn't been on in some time GI consultation given recent initiation of Stelara and ? if related --> felt not and to continue treatment/follow up with her primary GI specialist (4) Hypercalcemia: Ca 10.5 on admission, ?2nd to dehydration. IVF provided PTH wnl, checked Vit D level -- low at 28 Diuretics as above, repeat ca wnl,normal albumin MRI brain without definitive mass/lesion however f/u with endocrinology at discharge to be arranged for cushings (5) Lower extremity edema: As above Lasix 40mg IV x 2 given, continue usual dose (given 20mg IV lasix 10/10, resumed 40mg PO daily) D/c'd olson as placed in ER CTAP without mass/other pathology Improved 10/11, increased 10/12 and switching to bumex 1mg daily and monitor response --> improvement/stable and sent at d/c (6) DVT (deep venous thrombosis): Original right IJ 2001 - noted on her recent CTA of the chest - Continue her Xarelto (7) Asthma: Chronic- well controlled on current therapy - Continue EARL - Continue symbicort No further budesonide Breathing stable 97% on RA (8) NINFA (obstructive sleep apnea): CPAP 11CM H20 with 2LNC - she voices compliance Ordered for HS, and has utilized (9) Diabetes: continued home lantus and used SSI while inpatient BSGs acceptable (10) Bipolar 1 disorder: Continued Lomotrigine, lexapro (11) Morbid obesity: encouraged weight loss/dietary changes patient wanting to be discharge, pain levels controlled swelling controlled discharged home with family residential supervisor to arrange outpatient follow Total Time Total Time Spent Total Time Spent (In Minutes): 70 Discharge Plan Discharge Items Patient Disposition: Home - Self-Care Reason For Visit: EDEMA OF THE FACE, LEGS, BACK PAIN Discharge Diagnosis: Edema Condition on Discharge: Fair Goals: You have been hospitalized for an acute medical problem. During your stay at [facility], we have made an effort to correct the problem that brought you to the hospital while keeping you as comfortable as possible. Medications were used to bring your condition under control and your discharge instructions will include directions for any medications you should take after leaving the hospital. Please make sure you see your Primary Care Provider as part of your follow up plan. Activity: Resume your previous activity Non-emergency contact: Primary Care Provider, Specialist and Patcher [place] Call non-emergency contact if: you have any medication questions, your symptoms worsen and your pain is worsening Follow-up/Referrals: Yousuf Garcia [Primary Care Provider] - 10/16/21 11:30 am (PATIENT IS AWARE OF HOSPITAL F/U VISIT WITH PCP) Diet: Carb Consistent or DM2 and Heart Healthy Addtl Attending Provider Instructions: You have been hospitalized for edema. This is likely secondary to your budesonide use for the asthma/Chrons. This has been stopped. Your thyroid function was checked and was normal. You were initially given IV lasix, but we switched you to BUMEX 1 mg by mouth daily. You should continue this medication daily and monitor your weights. Cortisol levels were checked and were normal. ACTH level was sent out and we will call you this upcoming week for follow up appointments with Endocrinology. A brain MRI was completed due to reported blurry vision/headaches. There was no evidence for stroke. This was reviewed by Neurology and did not feel any evidence for something like multiple sclerosis. There was some calcifications which could not exclude a microadenoma as we discussed could be a "sergio syndrome". Imaging was done and did not show any obstruction. Urology saw you due to possible finding on renal ultrasound, but felt to be benign finding. Repeat urines were collected and without evidence for infection. Imaging of your spine was completed and showed narrowing of the cervical spine. Your prior imaging showed narrowing and stenosis of the thoracic and lumbar spine region. Orthopedics was consulted but spine surgeon out of town until tomorrow and as you already are established and pain has been improved with the initiation of a muscle relaxer, you can follow up outpatient. You should continue your Xarelto for DVT. You have been sent medication for muscle relaxer called Flexeril. This is 5mg tablets and can take up to twice a day as needed for pain/spasms. This can further be increased as an outpatient up to 10mg at a time as needed if you notice decreased efficiency in the future. You can also continue to use heat as needed for comfort. Please follow up with your PCP in the next 7-10 days to monitor your progress. Please follow up routine care with your public relations consultant for your chrons. Please return to the nearest emergency department with any fevers, chest pain, increased shortness of breath, uncontrolled pain, or for any other symptoms concerning for you. It has been a pleasure being a part of the medical team providing for you while you have been in the hospital. Take care! Pending Studies at Discharge: Yes Studies:: 24 hour urines ACTH Stand-Alone Forms: My [facility], Opioid Pain Management, Smoking Cessation Medications and DC Order Prescriptions: New cyclobenzaprine 5 mg Tablet 5 mg PO BID PRN (Reason: muscle spasm) Qty: 30 RF: 0 diclofenac sodium [Voltaren Arthritis Pain] 1 % Gel 4 g EXT Q6H PRN (Reason: pain) Qty: 100 RF: 0 lidocaine 5 % Adhesive Patch,Medicated 1 patch transdermal QAM Qty: 15 RF: 0 bumetanide 1 mg Tablet 1 mg PO QAM Qty: 30 RF: 1 Continued pregabalin [Lyrica] 150 mg capsule 150 mg PO BID RF: 0 insulin aspart U-100 [Novolog Flexpen U-100 Insulin] 100 unit/mL (3 mL) insulin pen 30 unit subcut TIDM RF: 0 multivitamin Tablet 1 tab PO QAM RF: 0 lamotrigine [Lamictal] 200 mg Tablet 200 mg PO HS RF: 0 atorvastatin 10 mg tablet 10 mg PO QAM RF: 0 hydrocodone-acetaminophen 5-325 mg Tablet 1 tab PO TID RF: 0 ascorbic acid (vitamin C) [Vitamin C] 500 mg Tablet 500 mg PO QAM RF: 0 albuterol sulfate 90 mcg/actuation Hfa Aerosol Inhaler 2 puff INHALATION DIRECTED PRN (Reason: Shortness Of Breath) RF: 0 escitalopram oxalate [Lexapro] 20 mg Tablet 20 mg PO QAM RF: 0 budesonide-formoterol [Symbicort] 160-4.5 mcg/actuation HFA aerosol inhaler 2 puff INHALATION BID RF: 0 propranolol 10 mg tablet 10 mg PO BID RF: 0 ondansetron 4 mg tablet,disintegrating 4 mg PO Q6H PRN (Reason: nausea and vomiting) Qty: 14 RF: 0 vitamin A 10,000 unit Capsule 0 unit PO DAILY RF: 0 Spiriva with HandiHaler 18 mcg Capsule, W/Inhalation Device 1 cap INHALATION DAILY RF: 0 Lantus Solostar U-100 Insulin 100 unit/mL (3 mL) Insulin Pen 80 unit SUBCUT BID RF: 0 Xarelto 20 mg Tablet 20 mg PO DAILY RF: 0 Stelara 130 mg/26 mL Solution 90 mg IV .Q8WK RF: 0 polysaccharide iron complex [iFerex 150] 150 mg iron capsule 150 mg PO QAM RF: 0 Creon 36,000-114,000- 180,000 unit capsule,delayed release(DR/EC) 2 cap PO TIDM RF: 0 Discontinued budesonide 3 mg capsule,delayed,extend.release 3 mg PO QDL RF: 0 furosemide 40 mg tablet 40 mg PO DAILY RF: 0 Discharge Orders: Discharge Order (Routine); Ordered 10/13/21 Ordered By: Lavonne Gamboa Admission Data Admit Date/Time: 10/09/21 18:04 Attending Provider: Jan Renner Admit Provider: Gunner Harris Primary Care Provider: Yousuf Garcia Other Providers: Gunner Harris ; Dino Mejia ; Mateus Cruz ; Bernardo Lilly Other Interventions: Discharge Summary Assessment (RN) Last Done: 10/13/21 14:10 Supervising Physician Co-Signing Physician Notes During face to face encounter, obtained physical examination and history of hospital stay. Answered any questions patient had during hospital stay. D/W patient and NAJMA Gamboa. Reviewed above note and agree with it. Patient admitted with facial edema. Patient will be discharged on bumex. Coding Level of Care Code D/C DAY MANAGEMENT >30 MINS Diagnoses Edema of face R60.0 Back pain M54.9 Ulcerative colitis K51.80 Digestive disease complication type: without complication Ulcerative colitis location: other ulcerative colitis Hypercalcemia E83.52 Lower extremity edema R60.0 DVT (deep venous thrombosis) I82.409 Asthma J45.909 NINFA (obstructive sleep apnea) G47.33 Diabetes E11.9 Bipolar 1 disorder F31.9 Morbid obesity E66.01
--- NOTE | 2021-10-13 09:14 | Urology Consultation ---
Date of Consultation October 13, 2021 Assessment & Plan (1) Left flank pain: left flank pain - very low suspicion that this is a driven process - I am very uncertain that her imaging findings truly represent a ureterocele, but regardless, the only indications for intervention for a ureterocele would be related to evidence of obstruction or infection - and she has neither of those findings - at present, the presence or absence of a ureterocele is at most an incidental finding without clinical significance - with a normal appearing kidney, normal renal function, I do not believe she warrants any continued w/u or f/u either acutely or as an outpt - please call if further issues arise during this hospitalization History of Present Illness Attending Physician: Jan Renner History of Present Illness 45y/o with a multitude of problems including back and left flank pain has had numerous imaging studies which I personally reviewed CT earlier this admission showing no perinephric stranding, no stones, no hydronephrosis, no ureteral abnormalities, and no indication of a ureterocele US (renal/bladder) yesterday continues to show healthy kidneys without hydro or inflammation. Radiology report suggests the possibility of a very small ureterocele (I am uncertain about this and suspect it may just be the shape of her trigone) UA - clear no leukocytosis subjectively denies any dysuria, hematuria, renal colic like discomfort (pain seems to be more neuropathic/back related) Allergies Allergy/AdvReac Type Severity Reaction Status Date / Time nickel Allergy Mild Skin Verified 10/09/21 15:34 irritation Home Medications Medication Instructions Recorded Confirmed Type pregabalin 150 mg capsule (Lyrica) 150 mg PO BID 10/30/18 10/09/21 History insulin aspart U-100 100 unit/mL 30 unit SUBCUT TIDM 01/14/20 10/09/21 History (3 mL) subcutaneous pen (Novolog Flexpen U-100 Insulin aspart) albuterol sulfate 90 mcg/actuation 2 puff INHALATION DIRECTED PRN 11/22/20 10/09/21 History aerosol inhaler ascorbic acid (vitamin C) 500 mg 500 mg PO QAM 11/22/20 10/09/21 History tablet (Vitamin C) atorvastatin 10 mg tablet 10 mg PO QAM 11/22/20 10/09/21 History budesonide 3 mg 3 mg PO QDL 11/22/20 10/09/21 History capsule,delayed,extended release escitalopram oxalate 20 mg tablet 20 mg PO QAM 11/22/20 10/09/21 History (Lexapro) hydrocodone 5 mg-acetaminophen 325 1 tab PO TID 11/22/20 10/09/21 History mg tablet lamotrigine 200 mg tablet 200 mg PO HS 11/22/20 10/09/21 History (Lamictal) multivitamin 1 tab PO QAM 11/22/20 10/09/21 History slowur-uztttaaa-bqcvhvq 2 cap PO TIDM 01/13/21 10/09/21 History 36,000-114,000-180,000 unit capsule,delay rel (Creon) polysaccharide iron complex 150 mg 150 mg PO QAM 01/13/21 10/09/21 History iron capsule (iFerex 150) budesonide-formoterol HFA 160 2 puff INHALATION BID 03/07/21 10/09/21 History mcg-4.5 mcg/actuation aerosol inhaler (Symbicort) propranolol 10 mg tablet 10 mg PO BID 03/23/21 10/09/21 History ondansetron 4 mg disintegrating 4 mg PO Q6H PRN #14 tab 05/27/21 10/09/21 Rx tablet furosemide 40 mg tablet 40 mg PO DAILY 10/09/21 10/09/21 History insulin glargine 100 unit/mL (3 80 unit SUBCUT BID 10/09/21 10/09/21 History mL) subcutaneous pen (Lantus Solostar U-100 Insulin) rivaroxaban 20 mg tablet (Xarelto) 20 mg PO DAILY 10/09/21 10/09/21 History tiotropium bromide 18 mcg capsule 1 cap INHALATION DAILY 10/09/21 10/09/21 History with inhalation device (Spiriva with HandiHaler) ustekinumab 130 mg/26 mL 90 mg IV .Q8WK 10/09/21 10/09/21 History intravenous solution (Stelara) vitamin A 10,000 unit capsule 0 unit PO DAILY 10/09/21 10/09/21 History Patient History Medical History Abnormal LFTs Asthma Back pain Bipolar 1 disorder Clostridium difficile infection Crohn disease Diabetes DVT (deep venous thrombosis) Hyperglycemia Left flank pain LLQ abdominal pain No pertinent family history NINFA (obstructive sleep apnea) 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 difficile Ulcerative colitis Surgical History History of colectomy Family History Other Family history non-contributory Social History Smoking Status: Former smoker Tobacco Type: Cigarettes Do You Dip or Chew Tobacco: No; Hx Alcohol Use: No Hx Substance Use: No Preferred Language: [place] Communication Ability: Effective [employer]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 Beliefs That Will Affect Care: None Current Living Situation: Family Current Living Situation Comment: lives with daughter and two grandkids Other Information That Helps Us Care for You: No Feels Safe at Home: Yes Safety Concerns: Feels Safe At This Time Assistive Devices: CPAP and Oxygen - at Night Review of Systems Constitutional: no fever, no chills and no fatigue Eyes: no worsening vision Ear, Nose, Mouth, Throat: no facial pain and no pain with swallowing Respiratory: no cough and no dyspnea Cardiovascular: no chest pain and no palpitations Gastrointestinal: no nausea and no vomiting Genitourinary: no dysuria, no difficulty urinating, no urinary frequency and no hematuria Musculoskeletal: + back pain Integumentary: no rash and no urticaria Neurologic: no gait abnormality and no unsteadiness Psychiatric: no behavioral changes and no depression Endocrine: no fatigue Physical Exam Physical Exam: NAD AAOx3 no resp distress not tachy abd soft no reproducible CVA tenderness no suprapubic tenderness no skin changes somewhat cushingoid appearance no edema Results & Data ([facility]) Vital Signs (Past 12 Hours) Vital Signs Temp Pulse Pulse Resp BP Pulse Ox 10/13/21 06:52 36.4 C L 78 16 125/75 97 10/13/21 03:30 18 10/12/21 23:50 36.6 C 78 18 129/84 100 10/12/21 21:33 81 114/78 PG Care Time/CCT Total # of Minutes Spent Total Time Spent with Patient: Total time spent is greater than 50% in coordination of care (as documented) at patient's floor/unit and/or counseling patient: Coding Level of Care Code 85805 Inpt Consult Level 4 Diagnoses Left flank pain R10.9
[2021-10-13] MEDS: oxyCODONE HCL IR 5 MG TAB (IMMEDIATE RELEASE) PO PRN (11:30)
[2021-10-13] MEDS: CYCLOBENZAPRINE HCL 5 MG TAB PO PRN (11:30)
[2021-10-13 15:59] LABS: Creatinine 24 Hour Urine 1.5 gm/24 HR (0.6-2.5); Urine Creatinine 105.1 mg/dl
== END 2021-10-13 15:24 | disposition home or self-care (01) | DRG 948 ==
LOC: ED 12:40 → INTOOBSV 18:04 → SUATTDRO 18:04 → 3E 18:04

== ENCOUNTER 2021-11-01 20:07 | Observation (INO) ==
[2021-11-01 21:05] LABS: Basophils # (auto) 0.02 K/uL (0-0.2); Basophils % (auto) 0.2 %; Eosinophils # (auto) 0.22 K/uL (0-0.5); Eosinophils % (auto) 2.4 %; Hematocrit (blood only) 38.4 % (37-47); Hemoglobin 13.1 g/dL (12.0-16.0); Immature Granulocytes # (auto) 0.02 K/uL (0.00-0.02); Immature Granulocytes % (auto) 0.2 %; Lymphocytes # (auto) 3.09 K/uL (1.2-3.4); Lymphocytes % (auto) 33.2 %; Mean Corpuscular Hgb Conc 34.1 g/dL (32-36); Mean Corpuscular Volume 87.9 fL (80-100); Mean Platelet Volume 9.2 fL (7.4-10.4); Monocytes # (auto) 0.92 K/uL (0.11-0.59); Monocytes % (auto) 9.9 %; Neutrophils # (auto) 5.04 K/uL (1.4-6.5); Neutrophils % (auto) 54.1 %; Platelet Count 153 K/uL (130-400); RDW Standard Deviation 48.3 fL (36.4-46.3); Red Blood Count 4.37 M/uL (4.2-5.4); White Blood Count 9.31 K/uL (4.8-10.8)
--- NOTE | 2021-11-01 21:14 | Emergency Department Note ---
Impression & Plan Fluid overload, SOB (shortness of breath) ED Provider Note INFORMANT: Patient ED PROVIDER(S): Luiz Novak MD CHIEF COMPLAINT:Swelling PLAN: Disposition: Admitted Condition: Good Outpatient prescription management: none Referral: None MEDICAL DECISION MAKING: Patient presented because of swelling and edema. This is happened to her numerous times in the past. She has unfortunately not done well with increasing her diuretic at home. Record review indicates that she has had a 9 pound weight gain since her discharge. Patient also noted to fill her up of her chronic low back pain. Patient is a difficult IV stick but IV was established and lab work obtained. She did request something for the pain and was given a dose of IV morphine and Zofran. She was given IV Lasix. Troponin and BNP negative. CBC unremarkable. The patient does have hyperglycemia noted on chemistry panel. TSH normal. No acute ischemia on ECG. Chest x-ray negative. Patient does not feel that she will do well at home given her prior history. Triage Nursing notes reviewed and agree them. Vital Signs: reviewed and remarkable for hypertension Differential diagnosis: Fluid overload, renal insufficiency, Reactive airway disease, pneumonia, pn eumothorax, COPD, CHF, infections, cardiac ischemia, pulmonary embolism, musculoskeletal, gastrointestinal, as well as other pathologies. Diagnostics interpreted by me: EC Lead ECG performed and revealed Normal sinus rhythm at 84, normal [place], QRS normal. No elevation or depression. No PACs or PVCs. Poor R wave progression noted. Cardiac Monitoring: Cardiac monitoring ordered by me: The patient was placed on continuous cardiac monitoring and observed. It revealed a normal sinus rhythm at 82 beats per minute without ectopy or evidence of dysrhythmia. Imaging studies: Chest x-ray as above HPI: The patient is a 45 year old female who presents to the Emergency Room with complaints of swelling. This started 3 days ago and is similar to prior. Hx of fluid retention. The patient also notes the following associated symptoms, SOB, back pain. The patient has doubled bumetanide for relieving factors. Current pain is rated as 5/10. Currently anticoagulated for DVT hx. Pt denies LOC, headache, fevers, chills, diaphoresis, visual changes, neck pain, chest pain, nausea, vomiting, abdominal pain, melena, hematochezia, urinary symptoms, numbness, weakness, lymphadenopathy, rash, or other complaints. ROS: See above HPI for pertinent positives & negatives. A total of 10 systems reviewed and were otherwise negative. PAST MEDICAL HISTORY:See Below , edema, DVT, bipolar PAST SURGICAL HISTORY:See Below, FAMILY HISTORY:See Below SOCIAL HISTORY:See Below, quit smoking HOME MEDICATIONS:See Below ALLERGIES:See Below VITALS:See Below PHYSICAL EXAMINATION: GENERAL: Awake, alert, well-appearing, in no distress HENT: Normocephalic, atraumatic. Oropharynx unremarkable. EYES: Normal conjunctiva. Sclera non-icteric. NECK: Inspection normal. Non-tender. Supple. No nuchal rigidity. FROM. No masses. RESPIRATORY: Clear to auscultation. No wheezes. No rales. Normal respiratory effort. CARDIAC: Normal rate. Normal rhythm. No murmurs. No rubs. Extremities warm and well perfused. Pulses equal. No JVD. GI: Soft, non-distended. No tenderness to palpation. No rebound or guarding. No masses. RECTAL: Deferred. MUSCULOSKELETAL: Atraumatic. Chest examination reveals no tenderness. The back is symmetrical on inspection without obvious abnormality. There is no CVA tenderness to palpation. No joint edema. LOWER EXTREMITIES: Calves are equal size bilaterally and non-tender. 1-2+ edema. No discoloration. NEURO: Normal sensorium. No sensory or motor deficits noted. SKIN: No rash or jaundice noted. Luiz Novak MD Past Med/Surg History Medical History Abnormal LFTs Asthma Back pain Bipolar 1 disorder Clostridium difficile infection Crohn disease Diabetes DVT (deep venous thrombosis) Hyperglycemia Left flank pain LLQ abdominal pain No pertinent family history NINFA (obstructive sleep apnea) 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 difficile Ulcerative colitis Surgical History History of colectomy Family History Other Family history non-contributory Social History Smoking Status: Former smoker Tobacco Type: Cigarettes Hx Alcohol Use: No Hx Substance Use: No Preferred Language: Tu[place] Communication Ability: Effective Skin Lifter [place] Required: No Beliefs That Will Affect Care: None Current Living Situation: Family Current Living Situation Comment: lives with daughter and two grandkids Other Information That Helps Us Care for You: No Feels Safe at Home: Yes Safety Concerns: Feels Safe At This Time Assistive Devices: CPAP, Glasses and Oxygen - at Night Allergies Allergies Allergy/AdvReac Type Severity Reaction Status Date / Time nickel Allergy Mild Skin Verified 11/01/21 22:37 irritation Home Meds Home Medications Medication Instructions Recorded Confirmed pregabalin 150 mg capsule (Lyrica) 150 mg PO BID 10/30/18 11/01/21 insulin aspart U-100 100 unit/mL 30 unit SUBCUT TIDM 01/14/20 11/01/21 (3 mL) subcutaneous pen (Novolog Flexpen U-100 Insulin aspart) albuterol sulfate 90 mcg/actuation 2 puff INHALATION DIRECTED PRN 11/22/20 11/01/21 aerosol inhaler ascorbic acid (vitamin C) 500 mg 500 mg PO QAM 11/22/20 11/01/21 tablet (Vitamin C) atorvastatin 10 mg tablet 10 mg PO QAM 11/22/20 11/01/21 escitalopram oxalate 20 mg tablet 20 mg PO QAM 11/22/20 11/01/21 (Lexapro) hydrocodone 5 mg-acetaminophen 325 1 tab PO TID 11/22/20 11/01/21 mg tablet lamotrigine 200 mg tablet 200 mg PO HS 11/22/20 11/01/21 (Lamictal) multivitamin 1 tab PO QAM 11/22/20 11/01/21 pzakcr-ficozoml-orpyyal 2 cap PO TIDM 01/13/21 11/01/21 36,000-114,000-180,000 unit capsule,delay rel (Creon) polysaccharide iron complex 150 mg 150 mg PO QAM 01/13/21 11/01/21 iron capsule (iFerex 150) budesonide-formoterol HFA 160 2 puff INHALATION BID 03/07/21 11/01/21 mcg-4.5 mcg/actuation aerosol inhaler (Symbicort) propranolol 10 mg tablet 10 mg PO BID 03/23/21 11/01/21 insulin glargine 100 unit/mL (3 80 unit SUBCUT BID 10/09/21 11/01/21 mL) subcutaneous pen (Lantus Solostar U-100 Insulin) rivaroxaban 20 mg tablet (Xarelto) 20 mg PO DAILY 10/09/21 11/01/21 tiotropium bromide 18 mcg capsule 1 cap INHALATION DAILY 10/09/21 11/01/21 with inhalation device (Spiriva with HandiHaler) ustekinumab 130 mg/26 mL 90 mg IV .Q8WK 10/09/21 11/01/21 intravenous solution (Stelara) vitamin A 10,000 unit capsule 0 unit PO DAILY 10/09/21 11/01/21 acetaminophen 300 mg-codeine 30 mg 1 tab PO Q8H PRN 11/01/21 11/01/21 tablet hyoscyamine sulfate 0.125 mg tablet 0.125 mg PO TID PRN 11/01/21 11/01/21 mesalamine 500 mg 500 mg PO BID 11/01/21 11/01/21 capsule,controlled release (Pentasa) potassium chloride 10 mEq 10 meq PO DAILY 11/01/21 11/01/21 tablet,extended release tizanidine 2 mg tablet 2 mg PO TID PRN 11/01/21 11/01/21 Previous Rx's Medication Instructions Recorded ondansetron 4 mg disintegrating 4 mg PO Q6H PRN #14 tab 05/27/21 tablet bumetanide 1 mg tablet 1 mg PO QAM #30 tab 10/13/21 cyclobenzaprine 5 mg tablet 5 mg PO BID PRN #30 tab 10/13/21 diclofenac sodium 1 % topical gel 4 g EXT Q6H PRN #100 g 10/13/21 (Voltaren Arthritis Pain) lidocaine 5 % topical patch 1 patch TRANSDERMAL QAM #15 ea 10/13/21 Results & Data (ED) Vital Signs Vital Signs - 24 hr 11/01/21 20:11 11/01/21 23:31 Temperature 36.5 C Temperature Source Temporal Artery Scan Pulse Rate 101 H Pulse Rate [Apical] 84 Pulse Rhythm Regular Pulse Strength Normal Respiratory Rate 16 16 Respiratory Effort / Characteristics Non-Labored Non-Labored Spontaneous Respiratory Depth Normal Normal Respiratory Pattern Regular Blood Pressure 179/96 H Blood Pressure [Right Arm] 150/76 H Blood Pressure Mean 123 Blood Pressure Mean [Right Arm] 100 Blood Pressure Position Sitting Pulse Oximetry 97 95 Oxygen Delivery Method Room Air Room Air Sepsis Recent Fever Within 48 Hours No Sepsis New/Unexplained Change in Mental Status N/A Sepsis Action Taken by Nursing No Action Required Laboratory Data Result diagrams: 11/01/21 20:45 11/01/21 20:45 Lab Results 11/01/21 11/01/21 11/01/21 Range/Units 20:45 20:45 20:45 WBC 9.31 (4.8-10.8) K/uL RBC 4.37 (4.2-5.4) M/uL Hgb 13.1 (12.0-16.0) g/dL Hct 38.4 (37-47) % MCV 87.9 (80-100) fL MCH 30.0 (25-34) pg MCHC 34.1 (32-36) g/dL RDW Std Deviation 48.3 H (36.4-46.3) fL RDW Coeff of [place] 15.0 H (11.5-14.5) % Plt Count 153 (130-400) K/uL MPV 9.2 (7.4-10.4) fL Immature Gran % (Auto) 0.2 % Neut % (Auto) 54.1 % Lymph % (Auto) 33.2 % [place] % (Auto) 9.9 % Eos % (Auto) 2.4 % Baso % (Auto) 0.2 % Neut # (Auto) 5.04 (1.4-6.5) K/uL Lymph # (Auto) 3.09 (1.2-3.4) K/uL [place] # (Auto) 0.92 H (0.11-0.59) K/uL Eos # (Auto) 0.22 (0-0.5) K/uL Baso # (Auto) 0.02 (0-0.2) K/uL Immature Gran # (Auto) 0.02 (0.00-0.02) K/uL Sodium 137 (136-145) mmol/L Potassium 3.8 (3.5-5.1) mmol/L Chloride 105 (98-107) mmol/L Carbon Dioxide 24 (21-32) mmol/L Anion Gap 8 (3-11) BUN 17 (6-23) mg/dl Creatinine 0.60 (0.6-1.2) mg/dl Est Cr Clr Drug Dosing 141.7 ml/min Est GFR ( Amer) 126.7 ml/min Est GFR (Non-Af Amer) 109.3 ml/min BUN/Creatinine Ratio 28.3 H (10-20) Glucose 186 H (70-99(Fasting)) mg/dl Calcium 9.4 (8.5-10.1) mg/dl Total Bilirubin 0.9 (0.2-1.0) mg/dl AST 52 H (13-39) U/L ALT 48 (7-52) U/L Alkaline Phosphatase 120 H (34-104) U/L Troponin I High Sens 5.1 (0-14) pg/ml B-Natriuretic Peptide (0-100) pg/ml Total Protein 7.1 (6.0-8.3) gm/dl Albumin 4.0 (3.4-5.0) gm/dl Globulin 3.1 (2.5-4.0) gm/dl Albumin/Globulin Ratio 1.3 (0.9-2) TSH (0.300-4.500) uIu/ml Urine Color Urine Appearance (Clear) Urine pH (4.5-7.5) Ur Specific [place] (1.000-1.030) Urine Protein (Negative) Urine Glucose (UA) (Negative) Urine Ketones (Negative) Urine Blood (Negative) Urine Nitrite (Negative) Urine Bilirubin (Negative) Urine Urobilinogen (Negative) Ur Leukocyte Esterase (Negative) Urine WBC (Auto) (0-5) /hpf Urine RBC (Auto) (0-4) /hpf U Hyaline Cast (Auto) (0-5) /lpf U Epithel Cells (Auto) (0-5) /lpf Urine Bacteria (Auto) (Negative) SARS-CoV-2, RNA, NAAT (NEGATIVE) 11/01/21 11/01/21 11/01/21 Range/Units 20:45 21:11 22:41 WBC (4.8-10.8) K/uL RBC (4.2-5.4) M/uL Hgb (12.0-16.0) g/dL Hct (37-47) % MCV (80-100) fL MCH (25-34) pg MCHC (32-36) g/dL RDW Std Deviation (36.4-46.3) fL RDW Coeff of [place] (11.5-14.5) % Plt Count (130-400) K/uL MPV (7.4-10.4) fL Immature Gran % (Auto) % Neut % (Auto) % Lymph % (Auto) % [place] % (Auto) % Eos % (Auto) % Baso % (Auto) % Neut # (Auto) (1.4-6.5) K/uL Lymph # (Auto) (1.2-3.4) K/uL [place] # (Auto) (0.11-0.59) K/uL Eos # (Auto) (0-0.5) K/uL Baso # (Auto) (0-0.2) K/uL Immature Gran # (Auto) (0.00-0.02) K/uL Sodium (136-145) mmol/L Potassium (3.5-5.1) mmol/L Chloride (98-107) mmol/L Carbon Dioxide (21-32) mmol/L Anion Gap (3-11) BUN (6-23) mg/dl Creatinine (0.6-1.2) mg/dl Est Cr Clr Drug Dosing ml/min Est GFR ( Amer) ml/min Est GFR (Non-Af Amer) ml/min BUN/Creatinine Ratio (10-20) Glucose (70-99(Fasting)) mg/dl Calcium (8.5-10.1) mg/dl Total Bilirubin (0.2-1.0) mg/dl AST (13-39) U/L ALT (7-52) U/L Alkaline Phosphatase (34-104) U/L Troponin I High Sens (0-14) pg/ml B-Natriuretic Peptide 21 (0-100) pg/ml Total Protein (6.0-8.3) gm/dl Albumin (3.4-5.0) gm/dl Globulin (2.5-4.0) gm/dl Albumin/Globulin Ratio (0.9-2) TSH 1.554 (0.300-4.500) uIu/ml Urine Color Urine Appearance (Clear) Urine pH (4.5-7.5) Ur Specific [place] (1.000-1.030) Urine Protein (Negative) Urine Glucose (UA) (Negative) Urine Ketones (Negative) Urine Blood (Negative) Urine Nitrite (Negative) Urine Bilirubin (Negative) Urine Urobilinogen (Negative) Ur Leukocyte Esterase (Negative) Urine WBC (Auto) (0-5) /hpf Urine RBC (Auto) (0-4) /hpf U Hyaline Cast (Auto) (0-5) /lpf U Epithel Cells (Auto) (0-5) /lpf Urine Bacteria (Auto) (Negative) SARS-CoV-2, RNA, NAAT NEGATIVE (NEGATIVE) 11/01/21 Range/Units 23:20 WBC (4.8-10.8) K/uL RBC (4.2-5.4) M/uL Hgb (12.0-16.0) g/dL Hct (37-47) % MCV (80-100) fL MCH (25-34) pg MCHC (32-36) g/dL RDW Std Deviation (36.4-46.3) fL RDW Coeff of [place] (11.5-14.5) % Plt Count (130-400) K/uL MPV (7.4-10.4) fL Immature Gran % (Auto) % Neut % (Auto) % Lymph % (Auto) % [place] % (Auto) % Eos % (Auto) % Baso % (Auto) % Neut # (Auto) (1.4-6.5) K/uL Lymph # (Auto) (1.2-3.4) K/uL [place] # (Auto) (0.11-0.59) K/uL Eos # (Auto) (0-0.5) K/uL Baso # (Auto) (0-0.2) K/uL Immature Gran # (Auto) (0.00-0.02) K/uL Sodium (136-145) mmol/L Potassium (3.5-5.1) mmol/L Chloride (98-107) mmol/L Carbon Dioxide (21-32) mmol/L Anion Gap (3-11) BUN (6-23) mg/dl Creatinine (0.6-1.2) mg/dl Est Cr Clr Drug Dosing ml/min Est GFR ( Amer) ml/min Est GFR (Non-Af Amer) ml/min BUN/Creatinine Ratio (10-20) Glucose (70-99(Fasting)) mg/dl Calcium (8.5-10.1) mg/dl Total Bilirubin (0.2-1.0) mg/dl AST (13-39) U/L ALT (7-52) U/L Alkaline Phosphatase (34-104) U/L Troponin I High Sens (0-14) pg/ml B-Natriuretic Peptide (0-100) pg/ml Total Protein (6.0-8.3) gm/dl Albumin (3.4-5.0) gm/dl Globulin (2.5-4.0) gm/dl Albumin/Globulin Ratio (0.9-2) TSH (0.300-4.500) uIu/ml Urine Color Yellow Urine Appearance Clear (Clear) Urine pH 5.0 (4.5-7.5) Ur Specific [place] 1.006 (1.000-1.030) Urine Protein Negative (Negative) Urine Glucose (UA) Negative (Negative) Urine Ketones Negative (Negative) Urine Blood Trace H (Negative) Urine Nitrite Negative (Negative) Urine Bilirubin Negative (Negative) Urine Urobilinogen Negative (Negative) Ur Leukocyte Esterase Negative (Negative) Urine WBC (Auto) 0 (0-5) /hpf Urine RBC (Auto) 0-4 (0-4) /hpf U Hyaline Cast (Auto) 1-5 (0-5) /lpf U Epithel Cells (Auto) 5-10 H (0-5) /lpf Urine Bacteria (Auto) Negative (Negative) SARS-CoV-2, RNA, NAAT (NEGATIVE) Administered Medications Discontinued Medications Furosemide (Furosemide 40 Mg/4 Ml Vial) 40 mg IV ONE ONE Stop: 11/01/21 21:16 Last Admin: 11/01/21 22:05 Dose: 40 mg Documented by: [id number] Lamotrigine (Lamotrigine 100 Mg Tab) 200 mg PO ONE STA Stop: 11/01/21 23:41 Last Admin: 11/02/21 01:04 Dose: 200 mg Documented by: [id number] Mesalamine (Mesalamine 250 Mg Capcr) 500 mg PO ONE STA Stop: 11/01/21 23:41 Last Admin: 11/02/21 01:04 Dose: 500 mg Documented by: [id number] Morphine Sulfate (Morphine Sulfate 4 Mg/Ml 1 Ml [place]\Vial) 4 mg IV NOW STA Stop: 11/01/21 22:10 Last Admin: 11/01/21 22:14 Dose: 4 mg Documented by: [id number] Ondansetron HCl (Ondansetron Inj 2 Mg/Ml 2 Ml Vial) 4 mg IV NOW STA Stop: 11/01/21 21:18 Last Admin: 11/01/21 22:05 Dose: 4 mg Documented by: [id number] Discharge Plan Visit Data Chief Complaint: Swelling/Edema to Extremity Stated Complaint: SWELLING IN LEGS, LEFT ANKLE PAIN, CANNOT URINATE ED Provider: Luiz Novak Discharge Problem: Fluid overload, SOB (shortness of breath) Patient Disposition: Admitted As Inpatient Discharge Instructions Interventions: ED Discharge Assessment Last Done: 11/02/21 00:15
[2021-11-01] MEDS ORDERED: FUROSEMIDE 40 MG/4 ML VIAL IV ONE (21:15)
[2021-11-01] MEDS ORDERED: ONDANSETRON INJ 2 MG/ML 2 ML VIAL IV STA (21:17)
[2021-11-01 21:36] LABS: Albumin Globulin Ratio 1.3 (0.9-2); BUN Creatinine Ratio 28.3 (10-20); Bilirubin,Total 0.9 mg/dl (0.2-1.0); Calcium 9.4 mg/dl (8.5-10.1); Creatinine Clr Calc Pharmacy 141.7 ml/min; Est GFR (African American) 126.7 ml/min; Est GFR (Non-African American) 109.3 ml/min; Globulin 3.1 gm/dl (2.5-4.0); Total Protein 7.1 gm/dl (6.0-8.3)
[2021-11-01 21:51] LABS: Potassium 3.8 mmol/L (3.5-5.1)
[2021-11-01] MEDS ORDERED: MoRPHine SULFATE 4 MG/ML 1 ML CARP\\VIAL IV STA (22:09)
--- NOTE | 2021-11-01 22:30 | History & Physical Report ---
Date of Service November 01, 2021 Assessment & Plan (1) Edema: Plan: 45 year old female w/ Crohns on Stelara, DM, bipolar disorder, NINFA, asthma, DVT on Xarelto, chronic back pains who presents w/ 3 days of fluid retention, SOB, and back pain. - fluid retention of unknown etiology; presented for similar during 09/2021 [facility] admission. 2-4kg gain since. - as per prior admission, considered steroid use (last used 07/2021) given cushingoid type features. Lower suspicion for CHF (normal echo 09/2021), or Stelara-induced angioedema - steroid use is still within timeframe of associated symptoms (e.g. peripheral edema). defer endocrine testing at this time - liver and kidney function ~wnl. Will check INR. - considered systemic inflammation; patient has Crohn's. Lower suspicion for inflammation from spinal hardware which patient was concerned about. - bilateral venous duplex negative for acute DVT. + soft tissue edema - received lasix 40mg IV x1. Continue diuresis w/ Bumex 2mg IV qam as patient's home regimen is 1mg PO. - has NINFA on cpap: consider repeat sleep study given complaints of sleep/snoring issues and possible contribution to peripheral edema (2) SOB (shortness of breath): Plan: - multifactorial. see above (3) Asthma: Plan: - continue home regimen - medication list corrected; patient no longer on Symbicort; she states her pulmonology removed this medication in September 2021 (4) Bipolar 1 disorder: Plan: - continue home regimen (5) Back pain: Plan: - continue home regimen [place]; patient states control is adequate. Avoid IV narcotics if possible. (6) Diabetes: Plan: - basal + SSI. pharmacy glycemic consult placed (7) Crohn disease: Plan: - on Stelara and mesalamine as outpatient. continue mesalamine (8) NINFA (obstructive sleep apnea): Plan: - on cpap 11mmhg w/ 2L O2 qhs (9) Hx of deep venous thrombosis: Plan: - contineu home Xarelto Plan: FEN/GI: DM2, low Na. No IV fluids. Anticoagulation: Xarelto code: full dispo: med/surg History of Present Illness Chief Complaint: dyspnea, fluid retention Primary Care Provider: Yousuf Garcia 45 year old female w/ Crohns on Stelara, DM, bipolar disorder, NINFA, cpap, asthma, VTE on Xarelto, chronic back pains who presents w/ 3 days of fluid retention, SOB, and back pain. The swelling had improved from last admission, but returned 3 days ago. The swelling is predominantly in her left leg, though she is starting to notice some in her right. She feels full everywhere, including upper extremity and face. SOB, slightly worse than normal. More orthopneic. States received first dose of Stelara on 10/02/21. Has not yet received second dose. Daughter lives in same apartment duplex. Patient is no longer on symbicort. She last saw her presidential support specialist 4 wks ago (Dr. Landin in [place]). ED course: Lasix 40mg x1, morphine 4mg IV Allergies Allergy/AdvReac Type Severity Reaction Status Date / Time nickel Allergy Mild Skin Verified 11/01/21 22:37 irritation Home Medications Medication Instructions Recorded Confirmed Type pregabalin 150 mg capsule (Lyrica) 150 mg PO BID 10/30/18 11/01/21 History insulin aspart U-100 100 unit/mL 30 unit SUBCUT TIDM 01/14/20 11/01/21 History (3 mL) subcutaneous pen (Novolog Flexpen U-100 Insulin aspart) albuterol sulfate 90 mcg/actuation 2 puff INHALATION DIRECTED PRN 11/22/20 11/01/21 History aerosol inhaler ascorbic acid (vitamin C) 500 mg 500 mg PO QAM 11/22/20 11/01/21 History tablet (Vitamin C) atorvastatin 10 mg tablet 10 mg PO QAM 11/22/20 11/01/21 History escitalopram oxalate 20 mg tablet 20 mg PO QAM 11/22/20 11/01/21 History (Lexapro) hydrocodone 5 mg-acetaminophen 325 1 tab PO TID 11/22/20 11/01/21 History mg tablet lamotrigine 200 mg tablet 200 mg PO HS 11/22/20 11/01/21 History (Lamictal) multivitamin 1 tab PO QAM 11/22/20 11/01/21 History qzbjls-pcdiuyvz-wquuuuy 2 cap PO TIDM 01/13/21 11/01/21 History 36,000-114,000-180,000 unit capsule,delay rel (Creon) polysaccharide iron complex 150 mg 150 mg PO QAM 01/13/21 11/01/21 History iron capsule (iFerex 150) budesonide-formoterol HFA 160 2 puff INHALATION BID 03/07/21 11/01/21 History mcg-4.5 mcg/actuation aerosol inhaler (Symbicort) propranolol 10 mg tablet 10 mg PO BID 03/23/21 11/01/21 History ondansetron 4 mg disintegrating 4 mg PO Q6H PRN #14 tab 05/27/21 11/01/21 Rx tablet insulin glargine 100 unit/mL (3 80 unit SUBCUT BID 10/09/21 11/01/21 History mL) subcutaneous pen (Lantus Solostar U-100 Insulin) rivaroxaban 20 mg tablet (Xarelto) 20 mg PO DAILY 10/09/21 11/01/21 History tiotropium bromide 18 mcg capsule 1 cap INHALATION DAILY 10/09/21 11/01/21 History with inhalation device (Spiriva with HandiHaler) ustekinumab 130 mg/26 mL 90 mg IV .Q8WK 10/09/21 11/01/21 History intravenous solution (Stelara) vitamin A 10,000 unit capsule 0 unit PO DAILY 10/09/21 11/01/21 History cyclobenzaprine 5 mg tablet 5 mg PO BID PRN #30 tab 10/13/21 11/01/21 Rx diclofenac sodium 1 % topical gel 4 g EXT Q6H PRN #100 g 10/13/21 11/01/21 Rx (Voltaren Arthritis Pain) lidocaine 5 % topical patch 1 patch TRANSDERMAL QAM #15 ea 10/13/21 11/01/21 Rx acetaminophen 300 mg-codeine 30 mg 1 tab PO Q8H PRN 11/01/21 11/01/21 History tablet hyoscyamine sulfate 0.125 mg tablet 0.125 mg PO TID PRN 11/01/21 11/01/21 History mesalamine 500 mg 500 mg PO BID 11/01/21 11/01/21 History capsule,controlled release (Pentasa) potassium chloride 10 mEq 10 meq PO DAILY 11/01/21 11/01/21 History tablet,extended release tizanidine 2 mg tablet 2 mg PO TID PRN 11/01/21 11/01/21 History bumetanide 1 mg tablet 2 mg PO QAM #60 tab 11/02/21 Rx Past Med/Surg History Medical History Abnormal LFTs Asthma Back pain Bipolar 1 disorder Clostridium difficile infection Crohn disease Diabetes DVT (deep venous thrombosis) Hyperglycemia Left flank pain LLQ abdominal pain No pertinent family history NINFA (obstructive sleep apnea) 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 difficile Ulcerative colitis Surgical History History of colectomy Family History (Updated 11/02/21 @ 02:55 by Hira Tadeo MD) Father Lung cancer Mother History of heart valve repair Other Family history non-contributory Social History Smoking Status: Former smoker Tobacco Type: Cigarettes Hx Alcohol Use: No Hx Substance Use: No Preferred Language: Ivorian Communication Ability: Effective 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 + 8 lb wt gain since last discarge. Eyes: Denies blurry vision, vision changes ENT: Denies sore throat, sinus pain Cardiovascular: Denies chest pain, palpitations Respiratory: Denies shortness of breath on exertion and laying down. Gastrointestinal: Denies abdominal pain, vomiting, constipation. + nausea. + chronic diarrhea. Genitourinary: Denies urinary symptoms including dysuria. Per nursing, patient had reported a day of inability to void. Musculoskeletal: + low back pain radiates into L hip. Neurological: Denies headache, numbness, tingling, focal weakness Physical Exam Physical Exam: General: Grossly A&O. NAD. Cooperative. Mild generalized edema, including slightly puffy face. Morbidly obese habitus. HEENT: Atraumatic, normocephalic. EOMI Pulm: CTAB. -wheezes, -rales, -rhonchi. No respiratory distress. Cardiac: RRR, -mrg. Radial pulses intact and symmetrical. 2+ BLE edema. LLE is slightly larger. Abdominal: Nontender, nondistended, soft. Integ: Slightly increased warmth and slightly increased on L benjamin when conpared to R benjamin. Results & Data Results & Data ([facility]) Vital Signs (Past 12 Hours) Vital Signs Temp Pulse Resp BP Pulse Ox 11/01/21 20:11 36.5 C 101 H 16 179/96 H 97 Laboratory Results Cardiac Enzymes 11/01/21 11/01/21 Range/Units 20:45 20:45 AST 52 H (13-39) U/L Troponin I High Sens 5.1 (0-14) pg/ml CBC 11/01/21 Range/Units 20:45 WBC 9.31 (4.8-10.8) K/uL RBC 4.37 (4.2-5.4) M/uL Hgb 13.1 (12.0-16.0) g/dL Hct 38.4 (37-47) % Plt Count 153 (130-400) K/uL Neut # (Auto) 5.04 (1.4-6.5) K/uL Lymph # (Auto) 3.09 (1.2-3.4) K/uL [place] # (Auto) 0.92 H (0.11-0.59) K/uL Eos # (Auto) 0.22 (0-0.5) K/uL Baso # (Auto) 0.02 (0-0.2) K/uL Comprehensive Metabolic Panel 11/01/21 Range/Units 20:45 Sodium 137 (136-145) mmol/L Potassium 3.8 (3.5-5.1) mmol/L Chloride 105 (98-107) mmol/L Carbon Dioxide 24 (21-32) mmol/L BUN 17 (6-23) mg/dl Creatinine 0.60 (0.6-1.2) mg/dl Glucose 186 H (70-99(Fasting)) mg/dl Calcium 9.4 (8.5-10.1) mg/dl AST 52 H (13-39) U/L ALT 48 (7-52) U/L Alkaline Phosphatase 120 H (34-104) U/L Total Protein 7.1 (6.0-8.3) gm/dl Albumin 4.0 (3.4-5.0) gm/dl Intake and Output 05/11/01/21 11/01/21 06:59 14:59 22:59 Other: Weight 116.4 kg Weight Measurement Method Chair Scale Patient Weight 11/02/21 06:59 Weight 116.4 kg Diagnostic Findings cxr per my read: mild blunting of L costophrenic angle; small pleural effusion vs atelectasis. This was also present per 10/09/21 cxr report. statrad Preliminary Findings Only - See Final Report For Complete Findings US VENOUS BILATERAL LOWER EXTREMITEIS: No evidence of acute DVT. Soft tissue edema. Radiologist: Lilly Dasilva M.D. Study ready at 00:16 and initial results transmitted at 00:34 ECG Additional Comments: ecg per my read: NSR 84. Normal axis and intervals. Nonspecific ST-T changes. Code Status & VTE Plan Code Status full VTE Prophylaxis Plan VTE Prophylaxis will be ordered: Yes Supervising Physician Co-Signing Physician Notes Attending addendum: I have physically seen this patient, have supervised the medical residents activities, and agree with the H&P unless as otherwise noted. Assessment and Plan: Generalized edema- Status post Lasix 40 mg IV in ED Changed to Bumex 2 mg IV every morning, holding outpatient Bumex 1 mg NPO daily regimen Normal ejection fraction on 10/11 May be multifactorial: Steroid use, Stelara, inflammation associated with Crohn's Asthma- Continue home regimen Bipolar 1 disorder- Continue home regimen Remaining orders and notations as noted Resident Activity Tracking Resident Involvement: Resident Care Provided Care Provided: Adult Hospital Medicine
[2021-11-01] MEDS ORDERED: PHARMACY GLYCEMIC MGMT CONSULT PRN (23:37)
[2021-11-01] MEDS ORDERED: lamoTRIgine 100 MG TAB PO STA (23:40)
[2021-11-01] MEDS ORDERED: MESALAMINE 250 MG CAPCR PO STA (23:40)
[2021-11-01 23:55] LABS: Appearance Urine Clear (Clear); Bacteria Urine Automated Negative (Negative); Bilirubin Urine Negative (Negative); Blood Urine Trace (Negative); Color Urine Yellow; Glucose Urine UA Negative (Negative); Ketones Urine Negative (Negative); Leukocyte Esterase Urine Negative (Negative); Nitrite Urine Negative (Negative); Protein Urine Negative (Negative); RBC Urine Automated 0-4 /hpf (0-4); Specific Gravity Urine 1.006 (1.000-1.030); Urobilinogen Urine Negative (Negative); WBC Urine Automated 0 /hpf (0-5)
[2021-11-02] MEDS ORDERED: DICLOFENAC SOD 1% GEL 100 GM TUBE EXT PRN (01:00)
[2021-11-02] MEDS ORDERED: CYCLOBENZAPRINE HCL 5 MG TAB PO PRN (01:00)
[2021-11-02] MEDS ORDERED: ALBUTEROL HFA 8 GM INHALER INH PRN (01:00)
[2021-11-02] MEDS ORDERED: GLUCAGON FOR INJ 1 MG VIAL IM PRN (01:45)
[2021-11-02] MEDS ORDERED: DEXTROSE 50% 50 ML SYRINGE IV PRN (01:45)
[2021-11-02] MEDS ORDERED: CARBOHYDRATES FOR HYPOGLYCEMIA PO PRN (01:45)
[2021-11-02] MEDS ORDERED: GLUCOSE 40% GEL 15 GM TUBE PO PRN (01:45)
[2021-11-02] MEDS ORDERED: GLUCOSE 10 TABS/TUBE PO PRN (01:45)
[2021-11-02] MEDS: INSULIN ASPART PER UNIT SC SCH ×3 (02:11→13:21)
[2021-11-02] MEDS: INSULIN GLARGINE 100 UNIT/ML VIAL SC SCH ×2 (02:11→09:05)
[2021-11-02] MEDS ORDERED: ONDANSETRON INJ 2 MG/ML 2 ML VIAL IV PRN (03:11)
[2021-11-02] MEDS ORDERED: POLYETHYLENE (MIRALAX) 17 GM PACK PO PRN (03:12)
[2021-11-02 06:58] LABS: Basophils # (auto) 0.02 K/uL (0-0.2); Basophils % (auto) 0.2 %; Eosinophils # (auto) 0.28 K/uL (0-0.5); Eosinophils % (auto) 3.3 %; Hematocrit (blood only) 39.3 % (37-47); Hemoglobin 13.2 g/dL (12.0-16.0); Immature Granulocytes # (auto) 0.03 K/uL (0.00-0.02); Immature Granulocytes % (auto) 0.4 %; Lymphocytes # (auto) 2.79 K/uL (1.2-3.4); Lymphocytes % (auto) 32.6 %; Mean Corpuscular Hemoglobin 29.9 pg (25-34); Mean Corpuscular Hgb Conc 33.6 g/dL (32-36); Mean Corpuscular Volume 89.1 fL (80-100); Mean Platelet Volume 9.1 fL (7.4-10.4); Monocytes % (auto) 9.3 %; Neutrophils # (auto) 4.65 K/uL (1.4-6.5); Neutrophils % (auto) 54.2 %; Platelet Count 137 K/uL (130-400); RDW Coefficient of Variation 15.2 % (11.5-14.5); RDW Standard Deviation 49.3 fL (36.4-46.3); Red Blood Count 4.41 M/uL (4.2-5.4); White Blood Count 8.57 K/uL (4.8-10.8)
[2021-11-02 07:15] LABS: Albumin Globulin Ratio 1.2 (0.9-2); BUN Creatinine Ratio 22.2 (10-20); Bilirubin,Total 0.9 mg/dl (0.2-1.0); Calcium 9.2 mg/dl (8.5-10.1); Chol HDL Ratio 3.3 (0-5); Creatinine Clr Calc Pharmacy 116.8 ml/min; Est GFR (African American) 116.4 ml/min; Est GFR (Non-African American) 100.4 ml/min; Globulin 3.4 gm/dl (2.5-4.0); Magnesium 1.8 mg/dl (1.7-2.4); Potassium 3.4 mmol/L (3.5-5.1); Total Protein 7.4 gm/dl (6.0-8.3)
[2021-11-02] MEDS ORDERED: POTASSIUM CHLORIDE CRTAB 20 MEQ TABCR PO ONE ×2 (07:33→09:00)
--- NOTE | 2021-11-02 07:34 | Hospitalist Progress Note ---
Date of Service November 02, 2021 Assessment & Plan Admission and Anticipated Discharge Date Admission Date: November 01, 2021 Results & Data Results & Data ([facility]) Vital Signs (Past 12 Hours) Vital Signs Temp Pulse Pulse Resp BP BP BP 11/02/21 07:28 36.7 C 79 22 145/71 H 11/02/21 03:12 90 20 11/02/21 01:15 82 19 11/02/21 01:00 36.9 C 89 16 153/95 H 11/02/21 00:15 85 18 151/86 H 11/01/21 23:31 84 16 150/76 H 11/01/21 20:11 36.5 C 101 H 16 179/96 H Pulse Ox 11/02/21 07:28 93 11/02/21 03:12 98 11/02/21 01:15 98 11/02/21 01:00 95 11/02/21 00:15 95 11/01/21 23:31 95 11/01/21 20:11 97
[2021-11-02 07:54] LABS: Estimated Average Glucose 200 mg/dl; Hemoglobin A1C 8.6 % (4.5-5.6)
--- NOTE | 2021-11-02 08:02 | Ultrasound Report ---
BILATERAL LOWER EXTREMITY VENOUS DOPPLER HISTORY: Bilateral lower extremity edema, worse on left COMPARISON STUDY: None. FINDINGS: There is normal compressibility, flow, and augmentation within the bilateral lower extremit y deep venous systems. IMPRESSION: No DVT within the right or left lower extremity. ACT 112: Negative or not required by law. Electronically signed by: Patricio Mcintosh M.D. 11/02/2021 8:00 AM
[2021-11-02 08:05] LABS: INR 1.2 (0.9-1.1); Partial Thromboplastin Ratio 1.2; Partial Thromboplastin Time 32.5 Seconds (21.0-31.0); Prothrombin Time 12.6 Seconds (9.0-12.0)
[2021-11-02] MEDS ORDERED: PREGABALIN 150 MG CAP PO SCH (09:00)
[2021-11-02] MEDS ORDERED: LIDOCAINE 5% 1 PATCH TD SCH (09:00)
[2021-11-02] MEDS ORDERED: ESCITALOPRAM OXALATE 20 MG TAB PO SCH (09:00)
[2021-11-02] MEDS ORDERED: MESALAMINE 250 MG CAPCR PO SCH (09:00)
[2021-11-02] MEDS ORDERED: BUMETANIDE 2 MG in SYRINGE 0 ML IV SCH (09:00)
[2021-11-02] MEDS ORDERED: UMECLIDINIUM/VILANTEROL 62.5/25MCG 7 PUFFS/INHALER INH SCH (09:00)
[2021-11-02] MEDS ORDERED: PROPRANOLOL HCL 10 MG TAB PO SCH (09:00)
[2021-11-02] MEDS ORDERED: ATORVASTATIN 10 MG TAB PO SCH (09:00)
[2021-11-02] MEDS ORDERED: ASCORBIC ACID 500 MG TAB PO SCH (09:00)
[2021-11-02] MEDS ORDERED: FLUTICASONE/VILANTEROL 200/25MCG 14 PUFFS/INHALER INH SCH (09:00)
[2021-11-02] MEDS: PANCREAZE (LIPASE 10,500U) CAP PO SCH ×2 (09:03→13:17)
[2021-11-02] MEDS: HYDROCODONE/ACETAMOPHEN 5/325MG TAB PO SCH ×2 (09:10→14:28)
--- NOTE | 2021-11-02 09:34 | XRay Report ---
XR chest 1V portable HISTORY: Shortness of breath. assess for pulmonary vascular congestion COMPARISON: Chest 10/09/2021. FINDINGS: There are low lung volumes. No pneumothorax. Suspect trace bilateral pleural effusions. The heart remains mildly enlarged. There is diffuse interstitial/vascular thickening consistent with mil d congestive change. This is similar to the prior study. IMPRESSION: Cardiomegaly with mild pulmonary vascular congestion and trace bilateral pleural effusions. ACT 112: Negative or not required by law. Electronically signed by: Patricio Mcintosh M.D. 11/02/2021 9:33 AM
--- NOTE | 2021-11-02 10:10 | Electrocardiogram Report ---
Test Reason : Blood Pressure : / mmHG Vent. Rate : 084 BPM Atrial Rate : 084 BPM P-R Int : 164 ms QRS Dur : 096 ms QT Int : 390 ms P-R-T Axes : 050 036 013 degrees QTc Int : 460 ms Normal sinus rhythm Poor R wave progression, consider anterior VA vs. lead placement vs. LVH Abnormal ECG When compared with ECG of 09-OCT-2021 13:38, T wave amplitude has decreased in Anterior leads Confirmed by Nas Car ([id number]) on 11/02/2021 10:10:29 AM Referred By: REFERRED SELF Confirmed By:Nas Car
--- NOTE | 2021-11-02 13:56 | Discharge Summary ---
Date of Service November 02, 2021 Admission HPI Per Admitting Provider 45 year old female w/ Crohns on Stelara, DM, bipolar disorder, NINFA, cpap, asthma, VTE on Xarelto, chronic back pains who presents w/ 3 days of fluid retention, SOB, and back pain. The swelling had improved from last admission, but returned 3 days ago. The swelling is predominantly in her left leg, though she is starting to notice some in her right. She feels full everywhere, including upper extremity and face. SOB, slightly worse than normal. More orthopneic. States received first dose of Stelara on 10/02/21. Has not yet received second dose. Daughter lives in same apartment duplex. Patient is no longer on symbicort. She last saw her resort host 4 wks ago (Dr. Landin in [place]). ED course: Lasix 40mg x1, morphine 4mg IV Admission Exam Per Admitting Provider General: Grossly A&O. NAD. Cooperative. Mild generalized edema, including slightly puffy face. Morbidly obese habitus. HEENT: Atraumatic, normocephalic. EOMI Pulm: CTAB. -wheezes, -rales, -rhonchi. No respiratory distress. Cardiac: RRR, -mrg. Radial pulses intact and symmetrical. 2+ BLE edema. LLE is slightly larger. Abdominal: Nontender, nondistended, soft. Integ: Slightly increased warmth and slightly increased on L benjamin when conpared to R benjamin. Principal Diagnosis Pulmonary Edema, LE Edema Discharge Exam Constitutional WD/WN, vitals as above Eyes PERRL, conjunctivae normal, anicteric sclerae Respiratory normal respiratory effort, lungs clear to auscultation Cardiovascular Rate/Rhythm: regular rate and regular rhythm Vessels: no JVD Extremities: + edema (+1) Gastrointestinal (Abdomen) normal bowel sounds, soft, nontender, no hepatosplenomegaly Discharge Data Allergies Allergy/AdvReac Type Severity Reaction Status Date / Time nickel Allergy Mild Skin Verified 11/01/21 22:37 irritation Consultations 11/01/21 23:15 ED Decision to Admit Stat Ordered Studies 11/01/21 23:19 US venous doppler LE Urgent Hospital Course (1) Edema: 45 year old female w/ Crohns on Stelara, DM, bipolar disorder, NINFA, asthma, DVT on Xarelto, chronic back pains who presented w/ 3 days of fluid retention, SOB, and back pain. TO DO Outpatient: -Repeat BMP in 5-7 days to monitor renal function -Bumex was increased from 1 to 2mg QD -- titrate as needed LE Edema and SOB secondary to Pulmonary Edema - fluid retention of unknown etiology; presented for similar during 09/2021 [facility] admission. 2-4kg gain since. - as per prior admission, considered steroid use (last used 07/2021) given cushingoid type features. Lower suspicion for CHF (normal echo 09/2021), or Stelara-induced angioedema - steroid use is still within timeframe of associated symptoms (e.g. peripheral edema). defer endocrine testing at this time - liver and kidney function ~wnl. - considered systemic inflammation; patient has Crohn's. Lower suspicion for inflammation from spinal hardware which patient was concerned about. - bilateral venous duplex negative for acute DVT. + soft tissue edema - received lasix 40mg IV x1 in ED to good effect - Bumex 2mg IV given on day of discharge 11/02/21 -- increased home Bumex to 2mg PO QD to start on 11/03/21 - has NINFA on cpap: consider repeat sleep study given complaints of sleep/snoring issues and possible contribution to peripheral edema Asthma -Continued home Symbicort and Albuterol PRN BP1 -Continued home Lexapro -Continued home Lamictal Chronic Pain -Continued home [place] DM2 -Basal and SSI Crohn's Disease -Continued home Mesalamine -Last dose of Stelara on 10/02/21 Hx DVT -Continued home Xarelto (2) SOB (shortness of breath): (3) Asthma: (4) Bipolar 1 disorder: (5) Back pain: (6) Diabetes: (7) Crohn disease: (8) NINFA (obstructive sleep apnea): (9) Hx of deep venous thrombosis: Total Time Total Time Spent Total Time Spent (In Minutes): <30 Discharge Plan Discharge Items Patient Disposition: Home - Self-Care Reason For Visit: LOWER EXTREMITY EDEMA Discharge Diagnosis: Pulmonary Congestion and Edema Activity: Per Instructions section Non-emergency contact: Primary Care Provider Call non-emergency contact if: you have any medication questions and your symptoms worsen Follow-up/Referrals: Yousuf Garcia [Primary Care Provider] - Diet: Low Sodium (2gm) Addtl Attending Provider Instructions: Ms. Gordon, It was our pleasure caring [facility] at [facility] from 11/01-11/02/21 in regards to your increased lower extremity edema and shortness of breath. While in care you were found to have increased fluid in your lungs (pulmonary edema) w hich was likely the cause of your shortness of breath. You had also disclosed that despite taking your diuretic, you were not noticing the urination you typically had with it and felt as though the fluid were building up in your legs. As you have been off of steroids since your last discharge, this fluid build up was likely the cause of your symptoms on admission. Ultrasound of your legs was also NEGATIVE for any blood clots. You were given an IV diuretic (water pill) Lasix which helped remove a significant amount of fluid from both your lungs and the swelling in your legs. Please increase your home water pill (Bumex) to 2mg (2 tablets) daily for the next 5-7 days or until you are seen by your PCP and instructed to change the dosing otherwise. Please also ensure that you have a follow up appointment with your PCP by the middle of this coming week for reevaluation and lab work. Please see below for further instructions. -Please follow up with your PCP in the next 3-5 days -At that appointment please have a BMP (Basic Metabolic Profile) checked to ensure your kidney function is doing well -Please increase your Bumex to 2mg (2 tablets) daily -- a new prescription was sent to your pharmacy. -If your symptoms worsen or return, please return to the ED for reevalaution Pending Studies at Discharge: No Stand-Alone Forms: My [facility], Smoking Cessation Medications and DC Order Prescriptions: Continued pregabalin [Lyrica] 150 mg capsule 150 mg PO BID RF: 0 insulin aspart U-100 [Novolog Flexpen U-100 Insulin] 100 unit/mL (3 mL) insulin pen 30 unit subcut TIDM RF: 0 multivitamin Tablet 1 tab PO QAM RF: 0 lamotrigine [Lamictal] 200 mg Tablet 200 mg PO HS RF: 0 atorvastatin 10 mg tablet 10 mg PO QAM RF: 0 hydrocodone-acetaminophen 5-325 mg Tablet 1 tab PO TID RF: 0 ascorbic acid (vitamin C) [Vitamin C] 500 mg Tablet 500 mg PO QAM RF: 0 albuterol sulfate 90 mcg/actuation Hfa Aerosol Inhaler 2 puff INHALATION DIRECTED PRN (Reason: Shortness Of Breath) RF: 0 escitalopram oxalate [Lexapro] 20 mg Tablet 20 mg PO QAM RF: 0 budesonide-formoterol [Symbicort] 160-4.5 mcg/actuation HFA aerosol inhaler 2 puff INHALATION BID RF: 0 propranolol 10 mg tablet 10 mg PO BID RF: 0 ondansetron 4 mg tablet,disintegrating 4 mg PO Q6H PRN (Reason: nausea and vomiting) Qty: 14 RF: 0 vitamin A 10,000 unit Capsule 0 unit PO DAILY RF: 0 Spiriva with HandiHaler 18 mcg Capsule, W/Inhalation Device 1 cap INHALATION DAILY RF: 0 Lantus Solostar U-100 Insulin 100 unit/mL (3 mL) Insulin Pen 80 unit SUBCUT BID RF: 0 Xarelto 20 mg Tablet 20 mg PO DAILY RF: 0 Stelara 130 mg/26 mL Solution 90 mg IV .Q8WK RF: 0 cyclobenzaprine 5 mg Tablet 5 mg PO BID PRN (Reason: muscle spasm) Qty: 30 RF: 0 diclofenac sodium [Voltaren Arthritis Pain] 1 % Gel 4 g EXT Q6H PRN (Reason: pain) Qty: 100 RF: 0 lidocaine 5 % Adhesive Patch,Medicated 1 patch transdermal QAM Qty: 15 RF: 0 polysaccharide iron complex [iFerex 150] 150 mg iron capsule 150 mg PO QAM RF: 0 Creon 36,000-114,000- 180,000 unit capsule,delayed release(DR/EC) 2 cap PO TIDM RF: 0 hyoscyamine sulfate 0.125 mg tablet 0.125 mg PO TID PRN (Reason: .ABDOMINAL CRAMPING) RF: 0 Pentasa 500 mg capsule, extended release 500 mg PO BID RF: 0 tizanidine 2 mg tablet 2 mg PO TID PRN (Reason: Muscle Spasm) RF: 0 potassium chloride 10 mEq tablet extended release 10 meq PO DAILY RF: 0 acetaminophen-codeine 300-30 mg tablet 1 tab PO Q8H PRN (Reason: Pain) RF: 0 Changed bumetanide 1 mg Tablet 2 mg PO QAM Qty: 60 RF: 1 Discharge Orders: Discharge Order (Routine); Ordered 11/02/21 Ordered By: Travon Peña/Other Patient Handouts: Managing Type 2 Diabetes, Special Foot Care for Diabetes Admission Data Admit Date/Time: 11/01/21 23:36 Attending Provider: Antonio Jara Admit Provider: Hira Tadeo Primary Care Provider: Yousuf Garcia Other Providers: Marco Oliveros Other Interventions: Discharge Summary Assessment (RN) Last Done: 11/02/21 15:10 Supervising Physician Co-Signing Physician Notes I personally examined the patient and verified all armas points of history and exam, discussed case, and agree with decision making with Dr Kumar edema improved, feling better not back to baseline but good enough to go home/wants to go home vitals noted nad heent nc at mmm breathing unlabored no accessory muscles good effort skin no rahes no pallor or icterus edema - not decompensated CHF. extensive w/u last admission with [facility] no yield for concerning pathology. seems most likely steroids + Na --> fluid retention. improved w diuretics - d/w pt we can continue this but wit more third spaced fluids diuretics typically reach a point of diminishing returns --> so close f/u w PCP///close f/u BMP and then reduce diuretics once no longer providing enough benefit. safe/stable for home, PCP, BMP mid week --> otherwise as above Resident Activity Tracking Resident Involvement: Resident Care Provided Care Provided: Adult Hospital Medicine
[2021-11-02] MEDS ORDERED: RIVAROXABAN 20 MG TAB PO SCH (16:30)
--- NOTE | 2021-11-02 17:20 | Billing Data ---
Date of Service November 02, 2021 Coding Level of Care Code D/C DAY MANAGEMENT <30 MINS
[2021-11-02] MEDS ORDERED: lamoTRIgine 100 MG TAB PO SCH (21:00)
--- NOTE | 2021-11-03 02:56 | Billing Data ---
Date of Service November 03, 2021 Coding Level of Care Code 92217 Initial Inpt Care Lvl 3
== END 2021-11-02 15:37 | disposition home or self-care (01) ==
LOC: ED 20:07 → SUATTDRO 23:36 → INTOOBSV 23:36 → 3N 23:36